=== PATIENT | female | born 1940 | race Caucasian/White ===

== ENCOUNTER → 2016-10-31 | Outpatient (REF) | payer MEDICARE, OTHER ==
[~2016-10-31] MED LIST: KEFL500C7 PO
== END ==
LOC: M SFHCADAM 19:46
PROVIDERS: ATTEND Family Medicine
DX: I10 Essential (primary) hypertension (principal)

== ENCOUNTER → 2017-03-24 | Outpatient (REF) | payer MEDICARE, OTHER ==
[~2017-03-24] MED LIST changes: +KEFL500C17 PO; -KEFL500C7 PO
[2017-03-24 22:48] LABS: ALBUMIN/GLOBULIN RATIO 1.18 (1.00-1.93); BILIRUBIN,TOTAL 0.7 MG/DL (0.2-1.0); CALCIUM LEVEL 8.7 MG/DL (8.8-10.2); CREATININE FOR GFR 1.02 MG/DL (0.55-1.02); FREE T4 1.37 NG/DL (0.76-1.46); GLOMERULAR FILTRATION RATE 56.1 (>39); TOTAL PROTEIN 7.4 GM/DL (6.4-8.2)
[2017-03-24 23:00] LABS: BASO % 0.9 % (0.0-1.0); EOS % 1.2 % (0.0-3.0); LARGE UNSTAINED CELL # 0.1 K/mm3 (0.0-0.4); LARGE UNSTAINED CELL % 1.8 % (0.0-4.0); LYMPH # 1.3 K/mm3 (1.5-4.5); LYMPH % 43.6 % (24.0-44.0); MEAN CORPUSCULAR HEMOGLOBIN 30.1 pg (27.0-33.0); MEAN CORPUSCULAR HGB CONC 32.1 g/dl (32.0-36.5); MEAN CORPUSCULAR VOLUME 93.7 fl (80.0-96.0); MONO # 0.2 K/mm3 (0.0-0.8); MONO % 6.1 % (0.0-5.0); NEUTROPHILS # 1.3 K/mm3 (1.8-7.7); NEUTROPHILS % 46.4 % (36.0-66.0); PLATELET COUNT, AUTOMATED 220 k/mm3 (150-450); WHITE BLOOD COUNT 2.9 K/mm3 (4.0-10.0)
== END ==
LOC: M SFHCADAM 21:51
PROVIDERS: ATTEND Family Medicine
DX: R53.82 Chronic fatigue, unspecified (principal)

== ENCOUNTER → 2017-03-31 | Outpatient (REF) | payer MEDICARE, OTHER | LOC: M LAB REF 18:36 | PROVIDERS: ATTEND Family Medicine | DX: R30.0 Dysuria (principal) | CPT/HCPCS: 81001; 81002; 87088; 87186; G0463 ==

== ENCOUNTER → 2017-05-15 | Outpatient (REF) | payer MEDICARE, OTHER | LOC: M SFHCLERA 09:11 | PROVIDERS: ATTEND Dermatology | DX: C44.319 Basal cell carcinoma of skin of other parts of face (principal); D23.39 Other benign neoplasm of skin of other parts of face | CPT/HCPCS: 11100; 11101; 88305; G0463 ==

== ENCOUNTER → 2017-07-10 | Outpatient (REF) | payer MEDICARE, OTHER | LOC: M SFHCLERA 09:42 | PROVIDERS: ATTEND Dermatology | DX: C44.319 Basal cell carcinoma of skin of other parts of face (principal) ==

== ENCOUNTER → 2017-09-02 | Outpatient (REF) | payer MEDICARE, OTHER | LOC: M SFHCADAM 08:49 | DX: N30.00 Acute cystitis without hematuria (principal); B96.29 Other Escherichia coli [E. coli] as the cause of diseases classified elsewhere; B96.20 Unspecified Escherichia coli [E. coli] as the cause of diseases classified elsewhere | CPT/HCPCS: 87088; 87186 ==

== ENCOUNTER → 2017-10-23 | Outpatient (REF) | payer MEDICARE, OTHER ==
[2017-10-23 21:10] LABS: BASO % 0.6 % (0.0-1.0); EOS # 0.1 10^3/uL (0.0-0.50); EOS % 2.2 % (0.0-3.0); HEMATOCRIT 39.5 % (36.0-47.0); HEMOGLOBIN 12.7 g/dl (12.0-16.0); IMMATURE GRANULOCYTE % 0.3 % (0-3.0); LYMPH # 1.5 10^3/uL (1.5-4.5); LYMPH % 45.7 % (24.0-44.0); MEAN CORPUSCULAR HEMOGLOBIN 29.2 pg (27.0-33.0); MEAN CORPUSCULAR HGB CONC 32.2 g/dl (32.0-36.5); MEAN CORPUSCULAR VOLUME 90.8 fl (80.0-96.0); MONO # 0.3 10^3/uL (0.0-0.8); MONO % 8.7 % (0.0-5.0); NEUTROPHILS # 1.4 10^3/uL (1.8-7.7); NEUTROPHILS % 42.5 % (36.0-66.0); PLATELET COUNT, AUTOMATED 207 10^3/uL (150-450); RED BLOOD COUNT 4.35 10^6/uL (4.00-5.40); RED CELL DISTRIBUTION WIDTH 12.9 % (11.5-14.5); WHITE BLOOD COUNT 3.2 10^3/uL (4.0-10.0)
[2017-10-23 21:18] LABS: ALBUMIN/GLOBULIN RATIO 1.21 (1.00-1.93); ALKALINE PHOSPHATASE 108 U/L (45-117); ALT/SGPT 21 U/L (12-78); ANION GAP 9 MEQ/L (8-16); AST/SGOT 19 U/L (7-37); BILIRUBIN,TOTAL 0.5 MG/DL (0.2-1.0); BLOOD UREA NITROGEN 32 MG/DL (7-18); CALCIUM LEVEL 9.4 MG/DL (8.8-10.2); CARBON DIOXIDE LEVEL 28 MEQ/L (21-32); CHLORIDE LEVEL 104 MEQ/L (98-107); CREATININE FOR GFR 0.95 MG/DL (0.55-1.30); GLOMERULAR FILTRATION RATE > 60.0 (>39); GLUCOSE, FASTING 86 MG/DL (70-100); SODIUM LEVEL 141 MEQ/L (136-145); TOTAL PROTEIN 7.3 GM/DL (6.4-8.2)
== END ==
LOC: M LAB REF 20:28 → M SFHCADAM 20:28
DX: R53.83 Other fatigue (principal)
CPT/HCPCS: 84443

== ENCOUNTER → 2018-10-08 | Outpatient (CLI) | payer MEDICARE, OTHER ==
[~2018-10-08] MED LIST changes: +ASPI1TAB PO; +BIOF4GEL2 TOP; +LOSA50TA88 PO; +OMEP40CA2 PO; +TRIA37.5 PO
--- NOTE | 2018-10-08 12:54 | REP ---
CT study of the chest without contrast: History: History of breast carcinoma. Status post bilateral mastectomy. No comparison chest CT. 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 There is some post radiation fibrosis along the anterolateral chest wall in the left upper lobe mild in degree. No pulmonary nodule or mass lesion is seen. No pleural effusion is noted. No chest wall mass is observed. No axillary, supraclavicular, or internal mammary adenopathy is appreciated. There is focal fairly heavy calcification along the course the left anterior descending coronary artery. No hilar or mediastinal mass or adenopathy is observed. No adrenal lesion is seen. There are clips in the gallbladder fossa. Bone window settings show no bony destructive lesion. There is an old anterior wedge compression deformity at the L1 vertebral body. This is unchanged when compared with prior radiographs of the lumbar spine dated March 31, 2015. Thoracic vertebral body heights are preserved. At the T4 level, there is a central radiolucency surrounded by benign-appearing sclerotic margins may be a cyst or hemangioma. No significant bony destructive lesion. 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 Status post bilateral mastectomy. Status post cholecystectomy. No acute disease. Electronically Signed by Caleb Wilkinson MD 10/08/2018 01:41 P
--- NOTE | 2018-10-08 12:55 | REP ---
Right scapula: Two views. History: Scapular pain times 1 month. Findings: AP and tangential views of the scapula demonstrate no bony destructive lesion or abnormal sclerosis. Glenohumeral and acromioclavicular joints are normally aligned. There is minimal AC joint hypertrophy. Periarticular soft tissues are unremarkable. Visualized rib cage is intact. Impression: No acute abnormality. Minimal AC joint hypertrophy consistent with osteoarthritis. Electronically Signed by Caleb Wilkinson MD 10/08/2018 01:41 P
== END ==
LOC: M RAD 10:29
PROVIDERS: ATTEND Nurse Practitioner Family
DX: M25.511 Pain in right shoulder (principal); Z85.3 Personal history of malignant neoplasm of breast; Z90.13 Acquired absence of bilateral breasts and nipples; J70.1 Chronic and other pulmonary manifestations due to radiation; Z90.49 Acquired absence of other specified parts of digestive tract; M19.011 Primary osteoarthritis, right shoulder

== ENCOUNTER → 2018-10-30 | Outpatient (CLI) | payer MEDICARE, OTHER ==
[2018-10-30 13:15] LABS: CHOLESTEROL RISK RATIO 3.4 (<5); FREE T4 1.43 NG/DL (0.76-1.46); THYROID STIMULATING HORMONE 1.28 uIU/ML (0.358-3.740); TOTAL 25(OH) VITAMIN D 35.5 NG/ML (30.0-100.0)
== END ==
LOC: M LAB 11:40
PROVIDERS: ATTEND Family Medicine
DX: R25.1 Tremor, unspecified (principal); I10 Essential (primary) hypertension; M81.0 Age-related osteoporosis without current pathological fracture

== ENCOUNTER 2019-02-02 20:39 | Emergency (ER) | payer MEDICARE, OTHER ==
[~2019-02-02] VITALS: Ht 152.4 cm; Wt 75.9 kg
[~2019-02-02 20:39] MED LIST changes: -ASPI1TAB PO; +ASPI81TA26 PO; -OMEP40CA2 PO; +OMEP40CA97 PO
--- NOTE | 2019-02-02 22:32 | ECGEPIP ---
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
--- NOTE | 2019-02-02 23:17 | REPVR ---
EXAM: CT Head Without Contrast EXAM DATE/TIME: 02/02/2019 10:11 PM CLINICAL HISTORY: 79 years old, female; Injury or trauma; Fall; Initial encounter; Blunt trauma (contusions or hematomas) TECHNIQUE: Imaging protocol: Axial computed tomography images of the head without contrast. Radiation optimization: All CT scans at this facility use at least one of these dose optimization techniques: automated exposure control; mA and/or kV adjustment per patient size (includes targeted exams where dose is matched to clinical indication); or iterative reconstruction. COMPARISON: No relevant prior studies available. FINDINGS: Brain: Within the left cerebral convexity, there is a hyperdense acute subdural hematoma measuring 4 mm in thickness. This involves the left frontal, parietal, and temporal convexities. As a whole, this measures 5.3 x 0.4 x 7.5 cm. A tiny hypodense lacunar infarct is visualized within the anterior limb of left internal capsule, too small to determine acuity. There are small periventricular foci of white matter hypodensity, likely representing small vessel ischemic disease in a patient this age. The acuity of the white matter disease is indeterminate. The white-win differentiation is otherwise preserved demonstrating no acute territorial type infarct. Midline shift: There is approximately 2 mm of midline shift to the right. Ventricles: There is mild prominence of the ventricles and sulci, compatible with atrophy. Bones/joints: The calvarium demonstrates no evidence for a depressed fracture. Sinuses: Visualized sinuses are unremarkable. No fluid levels. Mastoid air cells: No mastoid effusion. Soft tissues: Unremarkable. Vasculature: Intracranial atherosclerosis visualized. IMPRESSION: 1. Within the left cerebral convexity, there is an acute subdural hematoma measuring 4 mm in thickness. A follow-up head CT in 12-24 hours is recommended. 2. There is approximately 2 mm of midline shift to the right. 3. A tiny hypodense lacunar infarct is visualized within the anterior limb of left internal capsule, too small to determine acuity. Otherwise, there is no acute territorial type infarct. 4. There are small periventricular foci of white matter hypodensity, likely representing small vessel ischemic disease in a patient this age. 5. Mild atrophy. Electronically signed by: Manuel Noel On 02/02/2019 23:16:36 PM
--- NOTE | 2019-02-02 23:30 | REPVR ---
EXAM: CT Cervical Spine Without Contrast EXAM DATE/TIME: 02/02/2019 10:11 PM CLINICAL HISTORY: 79 years old, female; Injury or trauma; Fall; Initial encounter; Blunt trauma TECHNIQUE: Imaging protocol: Axial computed tomography images of the cervical spine without contrast. Coronal and sagittal reformatted images were created and reviewed. Radiation optimization: All CT scans at this facility use at least one of these dose optimization techniques: automated exposure control; mA and/or kV adjustment per patient size (includes targeted exams where dose is matched to clinical indication); or iterative reconstruction. COMPARISON: No relevant prior studies available. FINDINGS: Vertebrae: No acute cervical spine fracture. Mild anterolisthesis of C4 on C5. The facet alignment is preserved bilaterally. The occipital condyles and C1-C2 articulations appear intact. Hypertrophic bilateral TMJ arthropathy. The cervical lordosis is mildly reversed. Diffuse osteopenia. Hypertrophic degenerative changes are identified at the junction of the anterior C1 arch and dens process. There is elongation of the styloid processes with ossification of the stylohyoid ligament, suggestive of [place] syndrome. Discs/Spinal canal/Neural foramina: Spondylosis is visualized at multiple cervical levels. A decrease in disc height is visualized from C5-6 to C7-T1. Minimal narrowing of the ventral thecal sac at C5-6 and C6-7. Varying degrees of neural foraminal narrowing is identified at multiple cervical levels. Soft tissues: The prevertebral soft tissues are unremarkable. Lungs: No pneumothorax, as visualized. IMPRESSION: 1. No acute cervical spine fracture. 2. Mild anterolisthesis of C4 on C5. 3. The cervical lordosis is mildly reversed. 4. Spondylosis is visualized at multiple cervical levels. 5. Minimal narrowing of the ventral thecal sac at C5-6 and C6-7. 6. Additional findings described above. Electronically signed by: Manuel Noel On 02/02/2019 23:30:41 PM
[2019-02-03] MEDS ORDERED: LABETALOL HCL 100 MG/20 ML VIAL IV STA (00:13)
[2019-02-03 00:24] VITALS: BP 182/84
[2019-02-03 00:42] VITALS: BP 166/86
--- NOTE | 2019-02-03 07:56 | REP ---
Clinical: Trauma. Fall. Technique: AP, lateral, bilateral oblique views of the right wrist. Findings: Subtle nondisplaced Colles' fracture of the distal radial metaphysis with overlying soft tissue swelling. Underlying age-related osteopenia and degenerative changes. Impression: Subtle nondisplaced: Fracture of the distal radius. Electronically Signed by Rubio Xavier MD 02/03/2019 07:48 A
== END 2019-02-03 00:49 | disposition short-term general hospital (02) ==
LOC: M ED 20:39
DX: S52.501A Unspecified fracture of the lower end of right radius, initial encounter for closed fracture (principal); W18.39XA Other fall on same level, initial encounter; Y92.830 Public park as the place of occurrence of the external cause; I62.00 Nontraumatic subdural hemorrhage, unspecified; I10 Essential (primary) hypertension; F03.90 Unspecified dementia, unspecified severity, without behavioral disturbance, psychotic disturbance, mood disturbance, and anxiety; Z79.899 Other long term (current) drug therapy; Z88.1 Allergy status to other antibiotic agents; Z88.2 Allergy status to sulfonamides; Z88.8 Allergy status to other drugs, medicaments and biological substances; Z91.018 Allergy to other foods; Z91.040 Latex allergy status

== ENCOUNTER → 2019-02-24 | Outpatient (REF) | payer MEDICARE, OTHER ==
[~2019-02-24] MED LIST changes: +OMEP40CA2 PO; -OMEP40CA97 PO
[2019-02-24 19:49] LABS: BASO % 1.2 % (0.0-1.0); EOS % 0.8 % (0.0-3.0); HEMATOCRIT 40.8 % (36.0-47.0); HEMOGLOBIN 13.3 g/dl (12.0-15.5); LYMPH # 0.9 10^3/uL (1.5-4.5); LYMPH % 38.3 % (24.0-44.0); MEAN CORPUSCULAR HEMOGLOBIN 28.5 pg (27.0-33.0); MEAN CORPUSCULAR HGB CONC 32.6 g/dl (32.0-36.5); MEAN CORPUSCULAR VOLUME 87.4 fl (80.0-96.0); MONO # 0.2 10^3/uL (0.0-0.8); MONO % 9.5 % (0.0-5.0); NEUTROPHILS # 1.2 10^3/uL (1.8-7.7); PLATELET COUNT, AUTOMATED 221 10^3/uL (150-450); RED BLOOD COUNT 4.67 10^6/uL (4.00-5.40); WHITE BLOOD COUNT 2.4 10^3/uL (4.0-10.0)
[2019-02-24 19:52] LABS: ALBUMIN 3.8 GM/DL (3.2-5.2); BILIRUBIN,TOTAL 0.6 MG/DL (0.2-1.0); CALCIUM LEVEL 9.7 MG/DL (8.8-10.2); CREATININE FOR GFR 1.16 MG/DL (0.55-1.30); GLOMERULAR FILTRATION RATE 48.1 (>39); POTASSIUM SERUM 3.8 MEQ/L (3.5-5.1); THYROID STIMULATING HORMONE 2.1 uIU/ML (0.358-3.740); TOTAL PROTEIN 7.5 GM/DL (6.4-8.2)
[2019-02-24 19:53] LABS: FOLATE 10.4 NG/ML; TOTAL 25(OH) VITAMIN D 25.1 NG/ML (30.0-100.0)
== END ==
LOC: M SFHCADAM 13:51
PROVIDERS: ATTEND Family Medicine
DX: R53.83 Other fatigue (principal); S06.5X9A Traumatic subdural hemorrhage with loss of consciousness of unspecified duration, initial encounter; S52.501D Unspecified fracture of the lower end of right radius, subsequent encounter for closed fracture with routine healing; Z79.899 Other long term (current) drug therapy; Y93.9 Activity, unspecified

== ENCOUNTER → 2019-03-02 | Outpatient (CLI) | payer MEDICARE, OTHER ==
[~2019-03-02] MED LIST changes: +ISOVUE-370 76% 100ML VIAL (Q9967) As Ordered ONE
--- NOTE | 2019-03-02 11:30 | REP ---
CT BRAIN WITHOUT AND WITH IV CONTRAST: HISTORY: Followup subdural hematoma. The patient gives a prior history of breast carcinoma. Comparison study February 02, 2019. CT CONTRAST DOSE: 75 mL of intravenous Isovue 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 Bone window settings show no bony destructive or sclerotic lesion to suggest a calvarial bony metastasis. There is fairly heavy vascular calcification again noted in the distal carotid arteries. Visualized paranasal sinuses are clear. No intraorbital abnormality is seen. Soft tissue window settings on the noncontrast exam demonstrate mild generalized atrophy. A tiny focal hypodensity in the anterior limb of the internal capsule on the left is again seen which may be an old lacunar infarct. The previously noted acute subdural hematoma visible on February 02, 2019 study has resolved. No extra-axial fluid collection is visible today. No infarct, mass, parenchymal hemorrhage, or midline shift is seen. On postcontrast images, there is enhancement of normal intracranial vasculature. No abnormal intracranial contrast enhancement is seen. IMPRESSION: Recently noted left subdural hematoma has resolved. There is mild generalized atrophy. Vascular calcification is noted. Tiny old lacunar infarct left internal capsule again seen. Electronically Signed by Caleb Wilkinson MD 03/02/2019 02:23 P
== END ==
LOC: M RAD 09:55
PROVIDERS: ATTEND Family Medicine
DX: S06.5X9A Traumatic subdural hemorrhage with loss of consciousness of unspecified duration, initial encounter (principal)
CPT/HCPCS: 70470; Q9967

== ENCOUNTER → 2019-04-14 | Outpatient (REF) | payer MEDICARE, OTHER ==
[~2019-04-14] MED LIST changes: -ISOVUE-370 76% 100ML VIAL (Q9967) As Ordered ONE
== END ==
LOC: M LAB REF 18:35
PROVIDERS: ATTEND Dermatology
DX: L57.0 Actinic keratosis (principal); D23.39 Other benign neoplasm of skin of other parts of face

== ENCOUNTER → 2019-12-06 | Outpatient (REF) | payer MEDICARE, OTHER ==
[~2019-12-06] MED LIST changes: -OMEP40CA2 PO; +OMEP40CA97 PO
[2019-12-06 12:57] LABS: BASO % 1.2 % (0.0-1.0); EOS # 0.2 10^3/uL (0.0-0.5); EOS % 8.5 % (0.0-3.0); HEMATOCRIT 33.2 % (36.0-47.0); HEMOGLOBIN 10.3 g/dl (12.0-15.5); LYMPH # 0.8 10^3/uL (1.5-5.0); LYMPH % 30.8 % (24.0-44.0); MEAN CORPUSCULAR HEMOGLOBIN 28.9 pg (27.0-33.0); MEAN CORPUSCULAR VOLUME 93.3 fl (80.0-96.0); MONO # 0.3 10^3/uL (0.0-0.8); MONO % 10.8 % (0.0-5.0); NEUTROPHILS # 1.2 10^3/uL (1.5-8.5); NEUTROPHILS % 47.5 % (36.0-66.0); RED BLOOD COUNT 3.56 10^6/uL (4.00-5.40); WHITE BLOOD COUNT 2.6 10^3/uL (4.0-10.0)
[2019-12-06 13:10] LABS: ALBUMIN 2.5 GM/DL (3.2-5.2); ALT/SGPT 15 U/L (12-78); BILIRUBIN,TOTAL 0.3 MG/DL (0.2-1.0); BLOOD UREA NITROGEN 23 MG/DL (7-18); CALCIUM LEVEL 8.6 MG/DL (8.8-10.2); CARBON DIOXIDE LEVEL 29 MEQ/L (21-32); CHLORIDE LEVEL 105 MEQ/L (98-107); CHOLESTEROL LEVEL 161 MG/DL (<200); CHOLESTEROL RISK RATIO 3.833 (<5); CREATININE FOR GFR 0.82 MG/DL (0.55-1.30); FREE T4 1.14 NG/DL (0.76-1.46); GLOMERULAR FILTRATION RATE > 60.0 (>39); GLUCOSE, FASTING 81 MG/DL (70-100); HDL CHOLESTEROL 42 MG/DL (>40); LDL CHOLESTEROL 100 MG/DL (<100); NON-HDL-C 119 MG/DL; SODIUM LEVEL 140 MEQ/L (136-145); TOTAL PROTEIN 5.6 GM/DL (6.4-8.2); TRIGLYCERIDES LEVEL 94 MG/DL (<150)
[2019-12-06 13:17] LABS: PLATELET COUNT, AUTOMATED 83 10^3/uL (150-450)
== END ==
LOC: M SFHCADAM 09:45
PROVIDERS: ATTEND Family Medicine
DX: K21.9 Gastro-esophageal reflux disease without esophagitis (principal); I10 Essential (primary) hypertension; D72.819 Decreased white blood cell count, unspecified; Z87.898 Personal history of other specified conditions; R19.7 Diarrhea, unspecified; R29.6 Repeated falls

== ENCOUNTER → 2019-12-14 | Outpatient (REF) | payer MEDICARE, OTHER ==
[~2019-12-14] MED LIST changes: +APAP325T4 PO; +CORE12.5 PO; +MELA3TAB24 PO; +META28.32 PO; +SENN-80 PO; +TRAM50TA2 PO; +VALP1CAP2 PO; +tylenol 2 tabs
[2019-12-14 18:11] LABS: EOS # 0.2 10^3/uL (0.0-0.5); EOS % 7.1 % (0.0-3.0); HEMATOCRIT 35.8 % (36.0-47.0); LYMPH # 1.3 10^3/uL (1.5-5.0); LYMPH % 43.2 % (24.0-44.0); MEAN CORPUSCULAR HEMOGLOBIN 28.7 pg (27.0-33.0); MEAN CORPUSCULAR HGB CONC 30.7 g/dl (32.0-36.5); MEAN CORPUSCULAR VOLUME 93.5 fl (80.0-96.0); MONO # 0.4 10^3/uL (0.0-0.8); MONO % 14.3 % (0.0-5.0); NEUTROPHILS % 33.4 % (36.0-66.0); PLATELET COUNT, AUTOMATED 189 10^3/uL (150-450); RED BLOOD COUNT 3.83 10^6/uL (4.00-5.40); WHITE BLOOD COUNT 3.1 10^3/uL (4.0-10.0)
[2019-12-14 18:16] LABS: APPEARANCE, URINE CLOUDY (CLEAR); BACTERIA, URINE AUTO 1+ (NEGATIVE); BILIRUBIN, URINE AUTO NEGATIVE (NEGATIVE); BLOOD, URINE BLOOD 1+ (NEGATIVE); COLOR, URINE YELLOW (YELLOW); GLUCOSE, URINE (UA) AUTO NEGATIVE (NEGATIVE); KETONE, URINE AUTO NEGATIVE (NEGATIVE); LEUKOCYTE ESTERASE, URINE AUTO 3+ (NEGATIVE); NITRITE, URINE AUTO NEGATIVE (NEGATIVE); PROTEIN, URINE AUTO NEGATIVE (NEGATIVE); RBC, URINE AUTO 29 /HPF (0-3); RENAL EPITHELIAL CELLS 1 /HPF; SPECIFIC GRAVITY URINE AUTO 1.012 (1.002-1.035); SQUAMOUS EPITHELIAL CELL UR AU 0 /HPF (0-6); UROBILINOGEN, URINE AUTO 0.2 mg/dL (0.0-2.0); WBC, URINE AUTO TNTC /HPF (0-3)
[2019-12-14 18:31] LABS: BLOOD UREA NITROGEN 26 MG/DL (7-18); CALCIUM LEVEL 8.8 MG/DL (8.8-10.2); CARBON DIOXIDE LEVEL 30 MEQ/L (21-32); CHLORIDE LEVEL 104 MEQ/L (98-107); CREATININE FOR GFR 0.88 MG/DL (0.55-1.30); GLOMERULAR FILTRATION RATE > 60.0 (>39); GLUCOSE, FASTING 93 MG/DL (70-100); POTASSIUM SERUM 3.9 MEQ/L (3.5-5.1); SODIUM LEVEL 140 MEQ/L (136-145)
== END ==
LOC: M SFHCADAM 15:05
PROVIDERS: ATTEND Physician Assistant
DX: N30.00 Acute cystitis without hematuria (principal); D61.818 Other pancytopenia

== ENCOUNTER → 2019-12-20 | Outpatient (REF) | payer MEDICARE, OTHER ==
[2019-12-20 17:16] LABS: VALPROIC ACID (DEPAKOTE) 95.1 UG/ML (50.0-100.0)
== END ==
LOC: M SFHCADAM 11:07
PROVIDERS: ATTEND Family Medicine
DX: R41.89 Other symptoms and signs involving cognitive functions and awareness (principal); Z87.898 Personal history of other specified conditions
CPT/HCPCS: 80164; 82140; 86780; G0463

== ENCOUNTER 2019-12-21 09:32 | Emergency (ER) | payer MEDICARE, OTHER ==
[~2019-12-21] VITALS: Ht 154.9 cm; Wt 62.3 kg
[~2019-12-21 09:32] MED LIST changes: -APAP325T4 PO; -CORE12.5 PO; -MELA3TAB24 PO; -META28.32 PO; -SENN-80 PO; -TRAM50TA2 PO; -VALP1CAP2 PO; -tylenol 2 tabs
[2019-12-21] MEDS ORDERED: tylenol 2 tabs (09:42)
[2019-12-21] MEDS ORDERED: SENN-80 PO (10:02)
[2019-12-21] MEDS ORDERED: MELA3TAB24 PO (10:02)
[2019-12-21] MEDS ORDERED: VALP1CAP2 PO (10:02)
[2019-12-21] MEDS ORDERED: CORE12.5 PO (10:02)
[2019-12-21] MEDS ORDERED: META28.32 PO (10:02)
[2019-12-21] MEDS ORDERED: PERCOCET 5MG/325MG TAB PO ONE (10:15)
[2019-12-21] MEDS ORDERED: CARVedilol 12.5 MG TAB PO ONE (10:15)
[2019-12-21] MEDS ORDERED: LOSARTAN 50MG TABLET PO ONE (10:15)
[2019-12-21 10:25] VITALS: BP 180/110
--- NOTE | 2019-12-21 11:32 | REP ---
CT BRAIN WITHOUT CONTRAST: CT brain performed without IV contrast. Coronal reconstruction images are performed. There is moderate atrophy again noted. There are mild periventricular small vessel ischemic changes again noted. There is no midline shift or mass effect. There is no acute intracranial hemorrhage. No subdural hematoma is seen. No skull fracture is seen. There are vascular calcifications in the carotid siphons. IMPRESSION: Stable chronic findings with no acute intracranial hemorrhage or skull fracture. Electronically Signed by Saúl Stark MD 12/21/2019 12:19 P
[2019-12-21 11:41] VITALS: BP 158/82
--- NOTE | 2019-12-21 12:10 | REP ---
CT LUMBAR SPINE WITHOUT CONTRAST: HISTORY: Injury in a fall onto back from standing position. Lower lumbar tenderness. Comparison lumbar spine radiographs are from March 31, 2015. TECHNIQUE: Helical scanning is acquired and 4 mm axial images are reformatted. CT FINDINGS: There is diffuse osteopenia. There are wedge compression fracture deformities at L4 and L1. These are chronic however, unchanged from prior radiographs March 31, 2015. There is some retropulsion associated with a wedge compression deformity at L4 however this appears to be unchanged. No acute lumbar vertebral fracture is appreciated. There are fairly large bilateral perineural cysts in the body of the sacrum. No sacral fracture is appreciated. No paravertebral or intraspinal hematoma is appreciated. There are parapelvic cysts in the left kidney and there is a intrarenal calculus in the left kidney which measures 8 mm in size. No hydronephrosis is appreciated. At the L4-5 level, there is mild diffuse disc bulging combined with ligamentum flavum and facet hypertrophy, there is mild central canal stenosis L4-5. There is mild central canal stenosis at L3-4 as well contributed to by the retropulsion of the superior aspect of the L4 vertebral body described above. This is a chronic appearance. No other disc protrusion is seen. There is osteoarthritic facet disease. IMPRESSION: Degenerative spondylosis changes. Diffuse osteoporosis. Chronic wedge compression deformities L1 and L4 with approximately 50% loss of anterior vertebral body height at both these levels unchanged from comparison radiographs 2014. Mild central canal stenosis at L4-5 and L3-4. 8 mm intrarenal calculus left kidney without hydronephrosis. Benign perineural cysts in the upper sacrum. Electronically Signed by Caleb Wilkinson MD 12/21/2019 12:33 P
== END 2019-12-21 12:06 | disposition home or self-care (01) ==
LOC: M ED 09:32
DX: M54.5 Low back pain (principal); M51.36 Other intervertebral disc degeneration, lumbar region; M81.0 Age-related osteoporosis without current pathological fracture; W01.198A Fall on same level from slipping, tripping and stumbling with subsequent striking against other object, initial encounter; Y92.098 Other place in other non-institutional residence as the place of occurrence of the external cause; F03.90 Unspecified dementia, unspecified severity, without behavioral disturbance, psychotic disturbance, mood disturbance, and anxiety; I10 Essential (primary) hypertension; Z85.3 Personal history of malignant neoplasm of breast; Z90.13 Acquired absence of bilateral breasts and nipples; Z86.718 Personal history of other venous thrombosis and embolism; Z88.2 Allergy status to sulfonamides; Z88.0 Allergy status to penicillin; Z88.6 Allergy status to analgesic agent; Z88.1 Allergy status to other antibiotic agents; Z88.5 Allergy status to narcotic agent; Z91.040 Latex allergy status; Z91.018 Allergy to other foods; Z79.899 Other long term (current) drug therapy

== ENCOUNTER → 2019-12-28 | Outpatient (REF) | payer MEDICARE, OTHER ==
[~2019-12-28] MED LIST changes: +CORE12.5 PO; +MELA3TAB24 PO; +META28.32 PO; +SENN-80 PO; +VALP1CAP2 PO; +tylenol 2 tabs
[2019-12-28 13:39] LABS: BLOOD UREA NITROGEN 28 MG/DL (7-18); CREATININE FOR GFR 0.82 MG/DL (0.55-1.30); GLOMERULAR FILTRATION RATE > 60.0 (>39)
== END ==
LOC: M LABDRWAD 12:25
PROVIDERS: ATTEND Physician Assistant
DX: M54.5 Low back pain (principal)

== ENCOUNTER 2019-12-31 17:35 | Emergency (ER) | payer MEDICARE, OTHER ==
[~2019-12-31] VITALS: Ht 157.5 cm; Wt 62.3 kg
[2019-12-31] MEDS ORDERED: TRAM50TA2 PO (18:51)
[2019-12-31] MEDS ORDERED: APAP325T4 PO (18:51)
[2019-12-31 18:55] LABS: EOS # 0.1 10^3/uL (0.0-0.5); EOS % 2.6 % (0.0-3.0); HEMATOCRIT 34.5 % (36.0-47.0); HEMOGLOBIN 10.9 g/dl (12.0-15.5); LYMPH # 1.1 10^3/uL (1.5-5.0); MEAN CORPUSCULAR HEMOGLOBIN 29.7 pg (27.0-33.0); MEAN CORPUSCULAR HGB CONC 31.6 g/dl (32.0-36.5); MONO # 0.4 10^3/uL (0.0-0.8); MONO % 12.1 % (0.0-5.0); NEUTROPHILS # 1.4 10^3/uL (1.5-8.5); NEUTROPHILS % 46.6 % (36.0-66.0); PLATELET COUNT, AUTOMATED 112 10^3/uL (150-450); RED BLOOD COUNT 3.67 10^6/uL (4.00-5.40); WHITE BLOOD COUNT 3.1 10^3/uL (4.0-10.0)
[2019-12-31 19:31] LABS: ERYTHROCYTE SEDIMENTATION RATE 12 mm/hr (0-30)
--- NOTE | 2019-12-31 20:01 | REPVR ---
PROCEDURE INFORMATION: Exam: US Duplex Lower Extremity Veins, Bilateral Exam date and time: 12/31/2019 7:41 PM Age: 79 years old Clinical indication: Pain; Leg, lower; Bilateral; Additional info: Lower leg swelling, pain L TECHNIQUE: Imaging protocol: Real-time duplex ultrasound of the extremities with 2-D win scale, color Doppler flow and spectral waveform analysis with image documentation. Complete exam focused on the bilateral lower extremity veins. COMPARISON: No relevant prior studies available. FINDINGS: Right deep veins: The common femoral, femoral, and popliteal veins are patent without thrombus. Normal Doppler waveforms. Normal compressibility and/or augmentation response. Right superficial veins: Unremarkable. Left deep veins: The common femoral, femoral, and popliteal veins are patent without thrombus. Normal Doppler waveforms. Normal compressibility and/or augmentation response. Left superficial veins: Unremarkable. Soft tissues: Unremarkable. IMPRESSION: No evidence of deep vein thrombosis. Electronically signed by: Javed Winslow On 12/31/2019 20:01:21 PM
[2019-12-31] MEDS ORDERED: KEFL500C17 PO (20:42)
[2019-12-31] MEDS: CEPHALEXIN 500 MG CAP PO ONE (20:58)
[2019-12-31 20:59] VITALS: BP 121/65
== END 2019-12-31 21:00 | disposition home or self-care (01) ==
LOC: M ED 18:15
DX: M79.89 Other specified soft tissue disorders (principal); N39.0 Urinary tract infection, site not specified; I10 Essential (primary) hypertension; Z86.718 Personal history of other venous thrombosis and embolism; Z88.1 Allergy status to other antibiotic agents; Z88.2 Allergy status to sulfonamides; Z88.5 Allergy status to narcotic agent; Z88.6 Allergy status to analgesic agent; Z88.8 Allergy status to other drugs, medicaments and biological substances; Z91.018 Allergy to other foods; Z91.040 Latex allergy status; Z79.899 Other long term (current) drug therapy

== ENCOUNTER → 2020-03-01 | Outpatient (REF) | payer MEDICARE, OTHER ==
[~2020-03-01] MED LIST changes: +APAP325T4 PO; +COLA1TAB PO; +D31000TA2 PO; +DEPA1CAP PO; +MULTCAP PO; +TRAM50TA2 PO; +VITA400T15 PO; +med rec comment
[2020-03-27 08:21] LABS: APPEARANCE, URINE HAZY (CLEAR); BACTERIA, URINE AUTO 1+ (NEGATIVE); BILIRUBIN, URINE AUTO NEGATIVE (NEGATIVE); BLOOD, URINE BLOOD 1+ (NEGATIVE); COLOR, URINE YELLOW (YELLOW); GLUCOSE, URINE (UA) AUTO NEGATIVE (NEGATIVE); KETONE, URINE AUTO NEGATIVE (NEGATIVE); LEUKOCYTE ESTERASE, URINE AUTO 3+ (NEGATIVE); MUCUS, URINE SMALL (NEGATIVE); NITRITE, URINE AUTO NEGATIVE (NEGATIVE); PROTEIN, URINE AUTO 1+ mg/dL (NEGATIVE); RBC, URINE AUTO 5 /HPF (0-3); SPECIFIC GRAVITY URINE AUTO 1.016 (1.002-1.035); SQUAMOUS EPITHELIAL CELL UR AU 1 /HPF (0-6); WBC, URINE AUTO TNTC /HPF (0-3)
== END ==
LOC: M SFHCADAM 11:24
PROVIDERS: ATTEND Physician Assistant
DX: N39.0 Urinary tract infection, site not specified (principal)
CPT/HCPCS: 81001; 87086; G0463

== ENCOUNTER 2020-04-16 22:54 | Inpatient (IN) | payer MEDICARE, OTHER ==
[~2020-04-16] VITALS: Ht 160 cm; Wt 55.9 kg
[~2020-04-16 22:54] MED LIST changes: -COLA1TAB PO; -D31000TA2 PO; -DEPA1CAP PO; -MULTCAP PO; -VITA400T15 PO; -med rec comment
[2020-04-16 23:41] LABS: BASO % 0.5 % (0.0-1.0); HEMATOCRIT 38.4 % (36.0-47.0); HEMOGLOBIN 12.4 g/dl (12.0-15.5); LYMPH # 0.7 10^3/uL (1.5-5.0); LYMPH % 16.6 % (24.0-44.0); MEAN CORPUSCULAR HEMOGLOBIN 30.7 pg (27.0-33.0); MEAN CORPUSCULAR HGB CONC 32.3 g/dl (32.0-36.5); MONO # 0.3 10^3/uL (0.0-0.8); MONO % 7.6 % (0.0-5.0); NEUTROPHILS % 74.3 % (36.0-66.0); RED BLOOD COUNT 4.04 10^6/uL (4.00-5.40)
[2020-04-16 23:46] LABS: PLATELET COUNT, AUTOMATED 83 10^3/uL (150-450)
--- NOTE | 2020-04-16 23:59 | REPVR ---
PROCEDURE INFORMATION: Exam: CT Head Without Contrast Exam date and time: 04/16/2020 11:37 PM Age: 80 years old Clinical indication: Pain; Headache; Additional info: Syncope TECHNIQUE: Imaging protocol: Computed tomography of the head without contrast. Radiation optimization: All CT scans at this facility use at least one of these dose optimization techniques: automated exposure control; mA and/or kV adjustment per patient size (includes targeted exams where dose is matched to clinical indication); or iterative reconstruction. COMPARISON: CT Head without contrast 12/21/2019 10:52 AM FINDINGS: Brain: There is no acute intracranial abnormality. Moderate small vessel ischemic changes are seen. There is no mass, midline shift, or mass effect. Stark-white matter differentiation is preserved. There is no evidence of hemorrhage. There is no extra-axial fluid collection. Basal cisterns are patent. Ventricles: Moderate prominence of ventricles and sulcci representing volume loss. Bones/joints: The visualized osseous structures are unremarkable. Paranasal sinuses: Visualized sinuses are clear. Mastoid air cells: Mastoid air cells are clear. Soft tissues: Unremarkable. IMPRESSION: 1. Moderate age related changes. 2. No acute intracranial abnormality. Electronically signed by: Norma Najera On 04/16/2020 23:59:22 PM
--- NOTE | 2020-04-17 00:01 | REPVR ---
PROCEDURE INFORMATION: Exam: CT Cervical Spine Without Contrast Exam date and time: 04/16/2020 11:37 PM Age: 80 years old Clinical indication: Neck pain; Additional info: Syncope TECHNIQUE: Imaging protocol: Computed tomography images of the cervical spine without contrast. Radiation optimization: All CT scans at this facility use at least one of these dose optimization techniques: automated exposure control; mA and/or kV adjustment per patient size (includes targeted exams where dose is matched to clinical indication); or iterative reconstruction. COMPARISON: No relevant prior studies available. FINDINGS: Vertebrae: No acute fracture. Normal alignment. Diffuse demineralization of the bones. Straightening of normal cervical lordosis likely secondary to muscular spasm or positioning. Lucencies in the T3 and T4 vertebral bodies appears to be well corticated likely old, clinical correlation and comparison with prior studies is recommended. Discs/Spinal canal/Neural foramina: Mild posterior disc osteophyte formation at multiple levels causing mild indentation on thecal sac. Soft tissues: Unremarkable. Lungs: Biapical scarring, left greater than right. IMPRESSION: No acute findings. Electronically signed by: Norma Najera On 04/17/2020 00:01:26 AM
[2020-04-17 02:04] LABS: ALBUMIN 2.5 GM/DL (3.2-5.2); ALT/SGPT 15 U/L (12-78); BILIRUBIN,DIRECT 0.2 MG/DL (0.0-0.2); BILIRUBIN,TOTAL 0.6 MG/DL (0.2-1.0); BLOOD UREA NITROGEN 33 MG/DL (7-18); CARBON DIOXIDE LEVEL 28 MEQ/L (21-32); CHLORIDE LEVEL 103 MEQ/L (98-107); CK-MB VALUE MASS < 1.0 NG/ML (<3.6); CPK CREATINE PHOSPHOKINASE 47 U/L (26-192); CREATININE FOR GFR 1.08 MG/DL (0.55-1.30); FREE T4 1.09 NG/DL (0.76-1.46); GLOMERULAR FILTRATION RATE 52.1 (>39); GLUCOSE, FASTING 108 MG/DL (70-100); MAGNESIUM LEVEL 1.5 MG/DL (1.8-2.4); MB/CK RELATIVE INDEX 2.13 (< OR =4); POTASSIUM SERUM 4.2 MEQ/L (3.5-5.1); SODIUM LEVEL 134 MEQ/L (136-145); TOTAL PROTEIN 5.8 GM/DL (6.4-8.2); TROPONIN I < 0.02 NG/ML (< 0.10)
[2020-04-17] MEDS ORDERED: NS 1,000 ML IV ONE (02:30)
[2020-04-17] MEDS ORDERED: ceFAZolin SOD 1 GM in D5W MINI-BAG PLUS 50 ML IV ONE (02:45)
[2020-04-17] MEDS ORDERED: VITA400T15 PO (02:57)
[2020-04-17] MEDS ORDERED: D31000TA2 PO (02:57)
[2020-04-17] MEDS ORDERED: med rec comment (02:59)
[2020-04-17] MEDS ORDERED: NS 1,000 ML IV SCH (03:45)
[2020-04-17] MEDS: MAGNESIUM OXIDE 400 MG TAB (MAG-OX) PO ONE ×2 (03:45→04:45)
[2020-04-17] MEDS ORDERED: SENNA 8.6 MG TAB (SENOKOT) PO PRN (03:45)
[2020-04-17] MEDS ORDERED: hydrALAZINE 20MG/ML 1ML VIAL (J0360 PER 20MG) IV STA (04:19)
--- NOTE | 2020-04-17 04:35 | HPEPDOC ---
[facility] Medical History & Physical Date of Admission Apr 17, 2020 Date of Service: Apr 17, 2020 Attending Physician: Susie Gibson MD History and Physical CHIEF COMPLAINT: fall, increased weakness, ? LOC HISTORY OF PRESENT ILLNESS: Patient is a 80 y/o F with PMH of breast cancer, HTN, hx of DVT, Hx of subdural hematoma, vit D deficiency, ? dementia, hx of falls who presented to ER with increased weakness, ? LOC found on floor by . Patient was not a good historian in the early hours this AM and patient's was not at bedside so most of information was taken from notes. Per EMS reports, the patient was found on floor, pt states did not fall, states slid to the floor by herself. There was no record of patient hitting head, this event was not witness. No documented bowel or bladder loss, seizure activity, tremoring, slurring speech, post-ictal phase, facial drooping, biting of tongue, drooling. It is unknown through records if the patient actually lost consciousness or not. Pt was unable to ambulate due to weakness per EMS. The patient does use walker occassionally at home. Patient denies fevers, chills, nausea, vomiting, diarrhea, recent illness, SOB, chest pain, lightheadedness or dizziness prior to fall. In the ER, patient was slightly confused, AAOx2 but could not recall the events of what brought her here completely. CT head neg, no focal deficits. There is no documented history of dementia but she was not a great historian. This could have been due to . Orthostatics +, UA +. VS showed some hypertension. CT cervical spine neg for injury. When attempted to stand up, she was very weak. Patient was admitted for further workup/treatment of increased weakness, fall with ? LOC, UTI. ROS: Neg except for what is mentioned above PAST MEDICAL HISTORY: 1. breast cancer s/p mastectomy 2. HTN 3. hx of DVT 4. Hx of subdural hematoma 5. Vit D deficiency 6. Dementia? PAST SURGICAL HISTORY: 1. Appendectomy 2. Hysterectomy 3. Bilateral mastectomy SOCIAL HISTORY: Patient denies smoking, alcohol or drug use history. Lives with in local area. FAMILY HISTORY: Noncontributory ALLERGIES: Please see below. HOME MEDICATIONS: Please see below. PHYSICAL EXAMINATION: VITAL SIGNS: 99.6F, 88, 173/79, 97% on RA GENERAL APPEARANCE: Appears tired, NAD, resting in bed, AAOx2 but not to reason why here HEENT: AT/NC, moist oral mucosa, PERRLA, EOMintact CARDIOVASCULAR: S1S2 +, no M/R/G LUNGS: CTAB, no W/R/R ABDOMEN: soft, nontender, nondistended, BS+ in 4 quad MUSCULOSKELETAL: ROM not tested, no atrophy 0 EXTREMITIES: nonpitting edema bilaterally, no cyanosis or clubbing NEUROLOGICAL: CN 2-12 intact, no focal deficits, gait not tested. No sensory or motor loss noted, reflexes + in all extrem. LABORATORY DATA: See below. IMAGING: CT head: no acute intracranial abnormalities CT cervical spine: No acute findings MICROBIOLOGY: Ucx pending BCx ordered ASSESSMENT: 80 y/o F with PMH of breast cancer, HTN, hx of DVT, Hx of subdural hematoma, vit D deficiency, ? dementia, hx of falls admitted for further workup/treatment of increased weakness, fall with ? LOC, UTI. PLAN: 1. Weakness and fall, ? LOC possibly 2/2 to orthostatic changes vs. UTI. -No known deconditioning at baseline, does not use support devices at home to ambulate -PT/OT, BP elevated, + orthostats in ER, + UA -F/u individual treatment plans below. 2. Syncope?, vasovagal vs. orthostatic changes as cause if occurred -unclear if true syncopal episode, patient poor historian -F/u echocardiogram, US carotid -Holding fluids due to elevated BP -Tele, orthostatics BID 3. Hypertension, uncontrolled -BP 160-200 mmHg systolic in ER -Giving 10 mg hydralazine -Stopped IVFs as patient does not appear to need additinal fluid at this time. -C/w all home medications in the AM 4. UTI -Afebrile, WBC wnl -F/u UCx -Ceftriaxone daily 5. Confusion, ? dementia -AAOx2, follows commands, not believed to be acute -Recommend following up with in AM. 6. Hx of breast cancer s/p mastectomy -F/u with PCP 7. Hx of DVT -Not on AC 8. Vitamin D deficiency -resume Vit d supplement 9. DVT px. -Hx of subdural hematoma and currently not on AC at home. If check with and no reason or CI to it, then please restart by day team. Will start on teds, SCDs for now. DISPOSITION: Admit to inpatient. PT/OT. Plan is discharge home when medically s table. Vital Signs Vital Signs Date Time Temp Pulse Resp B/P (MAP) Pulse Ox O2 Delivery O2 Flow Rate FiO2 04/17/20 03:50 203/102 (135) 04/17/20 02:26 88 95 04/16/20 23:20 99.6 20 97 Room Air Laboratory Data Labs 24H Laboratory Tests 2 04/16/20 23:10: Immature Granulocyte % (Auto) 1.0, Neutrophils (%) (Auto) 74.3H, Lymphocytes (%) (Auto) 16.6L, Monocytes (%) (Auto) 7.6H, Eosinophils (%) (Auto) 0.0, Basophils (%) (Auto) 0.5, Neutrophils # (Auto) 3.0, Lymphocytes # (Auto) 0.7L, Monocytes # (Auto) 0.3, Eosinophils # (Auto) 0.0, Basophils # (Auto) 0.0, Nucleated Red Blood Cells % (auto) 0.0, Immature Platelet Fraction 1.6 04/16/20 23:31: Bedside Glucose (Misc Panel) 114H 04/17/20 01:10: Anion Gap 3L, Glomerular Filtration Rate 52.1, Calcium Level 9.0, Magnesium Level 1.5L, Total Bilirubin 0.6, Direct Bilirubin 0.2, Aspartate Amino Transf (AST/SGOT) 21, Alanine Aminotransferase (ALT/SGPT) 15, Alkaline Phosphatase 69, Total Creatine Kinase 47, Creatine Kinase MB < 1.0, Creatine Kinase MB Relative Index 2.13, Troponin I < 0.02, Total Protein 5.8L, Albumin 2.5L, Albumin/Globulin Ratio 0.8L, Thyroid Stimulating Hormone (TSH) 1.810, Free Thyroxine 1.09 04/17/20 01:50: Urine Color YELLOW, Urine Appearance CLEAR, Urine pH 6.0, Urine Specific [place] 1.015, Urine Protein NEGATIVE, Urine Glucose (UA) NEGATIVE, Urine Ketones 1+H, Urine Blood 1+H, Urine Nitrite NEGATIVE, Urine Bilirubin NEGATIVE, Urine Urobilinogen 2.0H, Urine Leukocyte Esterase 1+H, Urine WBC (Auto) 31H, Urine RBC (Auto) 6H, Urine Hyaline Casts (Auto) 0, Urine Bacteria (Auto) NEGATIVE, Urine Squamous Epithelial Cells 0, Urine Mucus (Auto) SMALL, Urine Sperm (Auto) CBC/BMP Laboratory Tests 04/16/20 23:10 04/17/20 01:10 Microbiology Microbiology 04/17/20 Urine Culture, Received Pending Home Medications Scheduled Carvedilol (Coreg) 12.5 Mg Tablet, 12.5 MG PO BID Cholecalciferol (Vitamin D3) (Vitamin D3) 1,000 Unit Tablet, 1,000 UNITS PO DAILY Losartan Potassium (Losartan Potassium) 50 Mg Tab, 50 MG PO DAILY Melatonin (Melatonin) 3 Mg Tab.rapdis, 3 MG PO QPM for sleep Omeprazole (Omeprazole) 40 Mg Cap, 40 MG PO DAILY Psyllium Husk (with Sugar) (Metamucil Powder) 575 Gm Powder, 1 PKT PO DAILY Valproic Acid (Valproic Acid) 250 Mg Capsule, 500 MG PO BID Scheduled PRN Acetaminophen (Acetaminophen) 325 Mg Tablet, 650 MG PO Q4-6HP PRN for pain or fever Sennosides (Senna) 8.6 Mg Tablet, 17.2 MG PO QHS PRN for CONSTIPATION Miscellaneous Medications [med rec comment] used external to do med rec patient unsure of last dose Allergies Coded Allergies: Sulfa (Sulfonamide Antibiotics) (Verified Allergy, Mild, rash, 12/31/19) alendronate sodium (Verified Allergy, Mild, rash/headache, 12/31/19) cefadroxil (Verified Allergy, Mild, 12/31/19) NOTE: PATIENT HAS HAS MULTILE 1st GEN CEPHALOSPORINS AT [facility] AND IV chocolate flavor (Verified Allergy, Mild, headache and rash, 12/31/19) ciprofloxacin (Verified Allergy, Mild, rash, 12/31/19) hydrocodone (Verified Allergy, Mild, 12/31/19) terazosin (Verified Allergy, Mild, rash, 12/31/19) aspirin (Verified Allergy, Unknown, 12/21/19) latex (Verified Adverse Reaction, Intermediate, mouth sores, 12/31/19) lisinopril (Verified Adverse Reaction, Mild, aches, 12/21/19) amoxicillin (Verified Adverse Reaction, Unknown, nausea/vomiting, 12/21/19) clavulanic acid (Verified Adverse Reaction, Unknown, nausea/vomiting, 12/21/19) A-FIB/CHADSVASC A-FIB History Current/History of A-Fib/PAF?: No Current PO Anticoag Therapy: No Age/Risk Factor Scoring CHADSVASC: CHADSVASC Response (Comments) Value Age Risk Factor Age >/= 75 years old 2 Gender Risk Factor Female 1 Hx of CHF No 0 Hx of HTN Yes 1 Hx of Stroke/TIA/or VTE No 0 Hx of Diabetes No 0 Hx of Vascular Disease No 0 Total 4 Treatment Treatment ordered: Other Other anticoagulant ordered: enoxaparin Susie Gibson MD Apr 17, 2020 04:35
--- NOTE | 2020-04-17 04:49 | REPVR ---
PROCEDURE INFORMATION: Exam: US Duplex Bilateral Extracranial Arteries Exam date and time: 04/17/2020 4:33 AM Age: 80 years old Clinical indication: Syncope and collapse; Additional info: Fall, syncope? TECHNIQUE: Imaging protocol: Real-time Duplex ultrasound scan of the bilateral carotid and vertebral arteries combining win scale, color Doppler and spectral waveform analysis. Bilateral exam. COMPARISON: CT Head without contrast 04/16/2020 11:31 PM FINDINGS: Right common carotid artery: Unremarkable. No occlusion or stenosis. Waveforms are normal. Right internal carotid artery: Unremarkable. No occlusion or stenosis. Waveforms are normal. Right ICA/CCA ratio: Within normal limits. Right external carotid artery: No stenosis in the origin. Right vertebral artery: Unremarkable. Antegrade flow. Left common carotid artery: Unremarkable. No occlusion or stenosis. Waveforms are normal. Left internal carotid artery: Unremarkable. No occlusion or stenosis. Waveforms are normal. Left ICA/CCA ratio: Within normal limits. Left external carotid artery: No stenosis in the origin. Left vertebral artery: Unremarkable. Antegrade flow. IMPRESSION: Limited study secondary to motion artifact. Given limitation of motion artifact no hemodynamically significant stenosis, or occlusion is seen. Further evaluation with MRA or CTA examination is recommended. REFERENCES: SRU CRITERIA. The degree of internal carotid artery stenosis is based on criteria defined by the Society of Radiologists in Ultrasound (SRU). Normal is no stenosis. Mild is less than 50% stenosis. Moderate is 50-69% stenosis. Severe is greater than 69% stenosis to near occlusion. Near occlusion is a markedly narrowed lumen. Total occlusion is no detectable patent lumen. Electronically signed by: Norma Najera On 04/17/2020 04:49:23 AM
[2020-04-17] MEDS ORDERED: ACETAMINOPHEN 650 MG SUPP As Ordered ONE (05:04)
[2020-04-17] MEDS ORDERED: ACETAMINOPHEN 650 MG SUPP PR ONE (05:30)
[2020-04-17 05:37] LABS: CHOLESTEROL LEVEL 147 MG/DL (<200); CHOLESTEROL RISK RATIO 3.062 (<5); HDL CHOLESTEROL 48 MG/DL (>40); LDL CHOLESTEROL 86 MG/DL (<100); NON-HDL-C 99 MG/DL; TRIGLYCERIDES LEVEL 63 MG/DL (<150)
[2020-04-17] MEDS: cefTRIAXone SOD 1 GM in D5W MINI-BAG PLUS 50 ML IV SCH (06:00)
[2020-04-17 06:25] VITALS: BP 140/72
[2020-04-17 06:46] LABS: HEMATOCRIT 35.2 % (36.0-47.0); HEMOGLOBIN 11.7 g/dl (12.0-15.5); MEAN CORPUSCULAR HEMOGLOBIN 30.7 pg (27.0-33.0); MEAN CORPUSCULAR HGB CONC 33.2 g/dl (32.0-36.5); MEAN CORPUSCULAR VOLUME 92.4 fl (80.0-96.0); RED BLOOD COUNT 3.81 10^6/uL (4.00-5.40); WHITE BLOOD COUNT 2.6 10^3/uL (4.0-10.0)
[2020-04-17 07:12] LABS: ALBUMIN 2.5 GM/DL (3.2-5.2); ALT/SGPT 14 U/L (12-78); BILIRUBIN,TOTAL 0.6 MG/DL (0.2-1.0); BLOOD UREA NITROGEN 27 MG/DL (7-18); CALCIUM LEVEL 8.6 MG/DL (8.8-10.2); CARBON DIOXIDE LEVEL 25 MEQ/L (21-32); CHLORIDE LEVEL 104 MEQ/L (98-107); CREATININE FOR GFR 0.93 MG/DL (0.55-1.30); GLOMERULAR FILTRATION RATE > 60.0 (>39); GLUCOSE, FASTING 96 MG/DL (70-100); POTASSIUM SERUM 3.1 MEQ/L (3.5-5.1); SODIUM LEVEL 138 MEQ/L (136-145); TOTAL PROTEIN 5.8 GM/DL (6.4-8.2)
[2020-04-17 07:15] LABS: PLATELET COUNT, AUTOMATED 77 10^3/uL (150-450)
[2020-04-17 08:00] VITALS: BP_SYST 125; BP_SYST 126; BP_SYST 128; BP_DIAS 64; BP_DIAS 68; BP_DIAS 92
[2020-04-17 08:38] LABS: PHOSPHORUS LEVEL 1.6 MG/DL (2.5-4.9)
[2020-04-17] MEDS: MAG SULF 1GM/100ML (MAG RUN) 1 GM in IV 1 EA IV SCH ×2 (08:40→10:01)
[2020-04-17] MEDS: VALPROIC ACID 250MG CAP PO SCH ×2 (08:40→21:00)
[2020-04-17] MEDS: OMEPRAZOLE 20 MG CAP PO SCH (08:41)
[2020-04-17] MEDS: CARVedilol 12.5 MG TAB PO SCH ×2 (08:42→20:28)
[2020-04-17] MEDS: LOSARTAN 50MG TABLET PO SCH (08:42)
[2020-04-17] MEDS ORDERED: ENOXAPARIN 40MG/0.4ML SYRINGE (J1650 PER 10MG) SC SCH (09:00)
[2020-04-17] MEDS: KCL 10MEQ/100ML SWI (KRUN) 10 MEQ in IV 1 EA IV SCH ×3 (11:00→13:25)
[2020-04-17 12:00] VITALS: BP 118/72
--- NOTE | 2020-04-17 14:56 | IPNPDOC ---
Text Note Date of Service The patient was seen on 04/17/20. NOTE S Upon interview, patient is alert and oriented x3 but unable to recall events that led to hospitalization. She denied recent bowel/bladder loss, dysuria, N/V/D, fever, dizziness, SALCEDO, CP and SOB but noted some chills due to feeling cold. History was provided by pt's via phone conversation. Per , patient went to bed early last night and was found on sitting on bedroom floor 2-3 hours later, unable to get up. She appeared "disjointed" and she didn't ask for help to get up. It was suspected that patient had an unwitnessed fall. He also noted that patient's mentation has been "off" for the past week, including less talkative, generalized weakness,decreased oral intake and fatigue. He also noted pt with hx of seizure in 09/2019 and had workup done in [place], but she presented with agitation at that time. Patient has had memory problems but denied pt with official diagnosis of dementia. reports that patient does not like taking pill orally and will gag on purpose to avoid taking oral medications. He often have to separate her regimen in two sessions to get her to take all the medications. Patient uses a walker occasionally at home. Review of Systems CONSTITUTIONAL: Denies fever, unexpected weight change, but noted generalized weakness, decreased oral intake per and some chills. HEENT: Denies headaches, dizziness. CARDIOVASCULAR: Denies chest pain, palpitations, dyspnea on exertion. RESPIRATORY: Denies wheezing, dyspnea, cough or hemoptysis GASTROINTESTINAL: Denies nausea, vomiting, abdominal pain, diarrhea, c onstipation, melena, hematochezia GENITAOURINARY: Denies dysuria, hematuria, urinary frequency, incontinence or retention. SKIN: Denies skin changes, rash and lesions. MUSCULOSKELETAL: Denies muscle or joint pain. NEUROLOGICAL: Denies focal weakness, numbness, tingling, change in Speech Physical Examination VITAL SIGNS: See below GENERAL APPEARANCE: 80 y/o F sitting upright in position of comfort and in no acute distress. Alert & oriented x3. HEENT Exam: Normocephalic and atraumatic, PERRLA, conjunctiva & lids normal, without sclera icteric, mucous membr. moist/pink, pharynx normal, nares patent. NECK: Supple without lymphadenopathy. LUNGS: Clear to auscultation bilaterally with full breath sounds without rales, wheezing, and crackles. CARDIOVASCULAR: Regular rate and rhythm, normal S1 & S2 without gallops, murmurs, rubs ABDOMEN: Soft, non-tender, non-distended with normal bowel sounds. No masses or ecchymosis. EXTREMITIES: 2+ radial and DP pulses bilaterally. No clubbing, cyanosis. Bilateral lower extremities tender to palpation and with 1+ pitting edema. SKIN: Normal turgor and temperature. No rash, lesion MUSCULOSKELETAL: Strength +5/5 in all extremities. NEUROLOGICAL: Moving all four extremities. Intact sensation in all extremities. Cranial nerves III-XII normal. Forgetful during interview. EKG 04/17 0121 Sinus rhythm with 1st degree AV block and occasional supraventricular complexes. Rate: 87bpm. Overnight telemetry reviewed: No acute event reported. Imaging 04/16/2020- CT head w/o contrast IMPRESSION: 1. Moderate age related changes. 2. No acute intracranial abnormality. 04/16/2020- CT C-spine w/o contrast IMPRESSION: No acute findings 04/17/2020- : US Duplex Bilateral Extracranial Arteries IMPRESSION: Limited study secondary to motion artifact. Given limitation of motion artifact no hemodynamically significant stenosis, or occlusion is seen. Further evaluation with MRA or CTA examination is recommended. Fatoumtaa Amor is a 80 y/o F with PMH of breast cancer (s/p bilateral mastectomy, refused letrozole in 08/2015 due to drug SE), HTN, hx of Sz, Hx of subdural hematoma, vit D deficiency and Hx of DVT who was admitted to hospital for fall with suspected loss of consciousness. P # Fall with suspected LOC - Can be multifactorial possibly 2/2 Sz vs. UTI vs metabolic encephalopathy, each addressed below - noted patient has been more disjointed in comparison to baseline over the past week, with poor oral intake. - Patient uses walker occasionally at home. - CT head and C-spine negative - EKG showed sinus rhythm with 1st degree AV block - orthostasis test negative 0800 this am - BCx pending. - Carotid US negative - Cont telemetry monitoring - Cont PT/OT - TSH normal at 1.8, free T4 ehsan at 1.09 # Metabolic encephalopathy - Hypokalemia 3.1, hypomagnesemia 1.5, mildly decreased Ca 8.6, hypophosphatemia 1.6 - Repleted potassium and Mg - Neutral phos ordered. - Recheck BMP in am. # Hx of Sz - Patient's reported patient has hx of Sz with workup at [place] - Requested to obtain old record - Check valproic acid level - EEG ordered # Possible UTI - Patient's UA positive for 1+ leukocyte esterase and positive WBC - Patient febrile 100.2 this am - Cont ceftriaxone - UCx pending # Pancytopenia - Appears chronic - Likely a combination of suspected myelodysplastic syndrome (per 04/2019 oncology note) and dehydration - Cont to monitor CBC # Hypertension -BP 140/72 this am -Cont home medications in the AM # Hx of breast cancer - L breast cancer dx in 1990 s/p lumpectomy, radiation and tamoxifen - L breast cancer recurrence in 1994, s/p L mastectomy - R breast cancer s/p R mastectomy 07/2015, ER positive, LA 1-2% positive, HER2 negative, started on letrozole 08/2015 but discontinued by patient due to side effect. - Cont to monitor # DVT prophylaxis - Cont CHRIS/SCD - No anticoagulation due to hx of subdural hematoma, was not sure of exact diagnosis, she was treated at [place]. VS,Fishbone, I+O VS, Fishbone, I+O Laboratory Tests 04/16/20 23:10 04/17/20 01:10 04/17/20 06:25 Vital Signs Date Time Temp Pulse Resp B/P (MAP) Pulse Ox O2 Delivery O2 Flow Rate FiO2 04/17/20 12:00 98.5 78 18 118/72 (87) 94 Room Air GME ATTESTATION GME ATTESTATION My faculty preceptor for this patient encounter was physically present during the encounter and was fully available. All aspects of the patient interview, examination, medical decision making process, and medical care plan development were reviewed and approved by the faculty preceptor. The faculty preceptor is aware and concurs with the plan as stated in the body of this note and will attest to such by his/her cosignature. ATTENDING NOTE Patient was seen and examined by me personally with the residents and students. Agree with the above assessment and plan MADELINE PRINCE OMS-3 Apr 17, 2020 14:56 AMRITA PUGA MD Apr 21, 2020 14:36
[2020-04-17 16:00] VITALS: BP 118/78
[2020-04-17 16:23] LABS: BLOOD UREA NITROGEN 25 MG/DL (7-18); CALCIUM LEVEL 8.5 MG/DL (8.8-10.2); CARBON DIOXIDE LEVEL 26 MEQ/L (21-32); CHLORIDE LEVEL 103 MEQ/L (98-107); CREATININE FOR GFR 0.93 MG/DL (0.55-1.30); GLOMERULAR FILTRATION RATE > 60.0 (>39); GLUCOSE, FASTING 109 MG/DL (70-100); MAGNESIUM LEVEL 2.3 MG/DL (1.8-2.4); POTASSIUM SERUM 3.8 MEQ/L (3.5-5.1); SODIUM LEVEL 134 MEQ/L (136-145); VALPROIC ACID (DEPAKOTE) 107.2 UG/ML (50.0-100.0)
[2020-04-17] MEDS: NEUTRA-PHOS 1.5 GM PACKET PO SCH ×2 (17:21→20:28)
[2020-04-17 20:00] VITALS: BP 158/74
[2020-04-17] MEDS: ACETAMINOPHEN TAB 650MG DOSE (2X325MG) PO PRN (20:28)
[2020-04-17] MEDS ORDERED: NEUTRA-PHOS 1.5 GM PACKET PO SCH (21:00)
[2020-04-17 22:43] LABS: BLOOD UREA NITROGEN 27 MG/DL (7-18); CARBON DIOXIDE LEVEL 25 MEQ/L (21-32); CHLORIDE LEVEL 105 MEQ/L (98-107); CREATININE FOR GFR 0.89 MG/DL (0.55-1.30); GLOMERULAR FILTRATION RATE > 60.0 (>39); GLUCOSE, FASTING 120 MG/DL (70-100); MAGNESIUM LEVEL 1.9 MG/DL (1.8-2.4); POTASSIUM SERUM 3.6 MEQ/L (3.5-5.1); SODIUM LEVEL 136 MEQ/L (136-145)
[2020-04-18] MEDS: ACETAMINOPHEN TAB 650MG DOSE (2X325MG) PO PRN (00:32)
[2020-04-18 04:00] VITALS: BP 149/97
[2020-04-18] MEDS ORDERED: SLF 3 ML SYR IV PRN (04:45)
[2020-04-18 06:13] LABS: HEMATOCRIT 37.3 % (36.0-47.0); MEAN CORPUSCULAR HEMOGLOBIN 30.4 pg (27.0-33.0); MEAN CORPUSCULAR HGB CONC 32.2 g/dl (32.0-36.5); MEAN CORPUSCULAR VOLUME 94.4 fl (80.0-96.0); RED BLOOD COUNT 3.95 10^6/uL (4.00-5.40); WHITE BLOOD COUNT 2.3 10^3/uL (4.0-10.0)
[2020-04-18] MEDS: SLF 3 ML SYR IV SCH ×3 (06:21→22:17)
[2020-04-18] MEDS: cefTRIAXone SOD 1 GM in D5W MINI-BAG PLUS 50 ML IV SCH (06:21)
[2020-04-18 06:37] LABS: CALCIUM LEVEL 8.6 MG/DL (8.8-10.2); CREATININE FOR GFR 1.03 MG/DL (0.55-1.30); PHOSPHORUS LEVEL 2.5 MG/DL (2.5-4.9); POTASSIUM SERUM 4.5 MEQ/L (3.5-5.1)
[2020-04-18 06:47] LABS: PLATELET COUNT, AUTOMATED 54 10^3/uL (150-450)
[2020-04-18 08:00] VITALS: BP 144/100
[2020-04-18] MEDS: LOSARTAN 50MG TABLET PO SCH (09:00)
[2020-04-18] MEDS: CARVedilol 12.5 MG TAB PO SCH ×2 (09:00→22:17)
[2020-04-18] MEDS: OMEPRAZOLE 20 MG CAP PO SCH (09:01)
[2020-04-18] MEDS: NEUTRA-PHOS 1.5 GM PACKET PO SCH (09:01)
[2020-04-18] MEDS: VALPROIC ACID 250MG CAP PO SCH (09:01)
[2020-04-18] MEDS: VITAMIN D 1,000 INTERNATIONAL UNITS TABLET PO SCH (11:22)
--- NOTE | 2020-04-18 11:53 | IPNPDOC ---
Text Note Date of Service The patient was seen on 04/18/20. NOTE S Upon interview, patient is alert and oriented x2. She was disoriented to place and cannot recall events that led to hospitalization. She denied dysuria, N/V/D, fever, chills, dizziness, SALCEDO, CP and SOB. A phone conversation was held with pt's son. He noted that patient's current presentation is very similar to how she presented in 09/2019 in which she was admitted to [facility]. 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 She is followed by [facility] and recently had EEG done in the last month. Son's phone number is [phone]. Review of Systems CONSTITUTIONAL: Denies fever, unexpected weight change, chills. HEENT: Denies headaches, dizziness. CARDIOVASCULAR: Denies chest pain, palpitations, dyspnea on exertion. RESPIRATORY: Denies wheezing, dyspnea, cough or hemoptysis GASTROINTESTINAL: Denies nausea, vomiting, abdominal pain, diarrhea, constipation, melena, hematochezia GENITAOURINARY: Denies dysuria, hematuria, urinary frequency, incontinence or retention. SKIN: Denies skin changes, rash and lesions. MUSCULOSKELETAL: Denies muscle or joint pain. NEUROLOGICAL: Denies focal weakness, numbness, tingling, change in Speech Physical Examination VITAL SIGNS: See below GENERAL APPEARANCE: 80 y/o F sitting upright in position of comfort and in no acute distress. Alert & oriented x2, disoriented to place. HEENT Exam: Normocephalic and atraumatic, PERRLA, conjunctiva & lids normal, without sclera icteric, mucous membr. moist/pink, pharynx normal, nares patent. NECK: Supple without lymphadenopathy. LUNGS: Clear to auscultation bilaterally with full breath sounds without rales, wheezing, and crackles. CARDIOVASCULAR: Regular rate and rhythm, normal S1 & S2 without gallops, murmurs, rubs ABDOMEN: Soft, non-tender, non-distended with normal bowel sounds. No masses or ecchymosis. EXTREMITIES: 2+ radial and PT pulses bilaterally. No clubbing, cyanosis, edema. CHRIS stockings noted. SKIN: Normal turgor and temperature. No rash, lesion MUSCULOSKELETAL: Strength +5/5 in all extremities. NEUROLOGICAL: Moving all four extremities. Intact sensation in all extremities. Cranial nerves III-XII normal. Forgetful during interview. EKG 04/17 0121 Sinus rhythm with 1st degree AV block and occasional supraventricular complexes. Rate: 87bpm. Overnight telemetry reviewed: No acute event reported. Imaging 04/16/2020- CT head w/o contrast IMPRESSION: 1. Moderate age related changes. 2. No acute intracranial abnormality. 04/16/2020- CT C-spine w/o contrast IMPRESSION: No acute findings 04/17/2020- : US Duplex Bilateral Extracranial Arteries IMPRESSION: Limited study secondary to motion artifact. Given limitation of motion artifact no hemodynamically significant stenosis, or occlusion is seen. Further evaluation with MRA or CTA examination is recommende dCaitlin Ham Brooke Amor is a 80 y/o F with PMH of breast cancer (s/p bilateral mastectomy, refused letrozole in 08/2015 due to drug SE), HTN, hx of Sz (09/2019), Hx of subdural hematoma (s/p fall 02/2019), vit D deficiency and Hx of DVT who was admitted to hospital for fall with suspected loss of consciousness. P # Fall with suspected LOC - Can be multifactorial possibly 2/2 Sz vs. UTI vs metabolic encephalopathy, each addressed below - noted patient has been more disjointed in comparison to baseline over the past week, with poor oral intake. - Patient uses walker occasionally at home. - CT head and C-spine negative - EKG showed sinus rhythm with 1st degree AV block - orthostasis test negative 0800 04/17/2020 - BCx with negative preliminary result, UCx negative - Carotid US negative - Cont telemetry monitoring - Cont PT/OT - TSH normal at 1.8, free T4 ehsan at 1.09 04/17/2020 - Strict I/O to monitor fluid intake, nursing order to encourage fluid intake. - Speech therapy performed swallow test at bedside, recommended mechanical soft diet and nectar thick liquid, diet changed accordingly. # Metabolic encephalopathy - Hypokalemia, hypomagnesemia, hypophosphatemia repleted - Recheck BMP in am. # Hx of Sz - Patient's reported patient has hx of Sz with workup at [place] - Requested to obtain old record - Valproic acid level high at 107.2 yesterday and home meds held yesterday - Cont home meds today, recheck level again tomorrow - EEG pending # Possible UTI - Patient's UA positive for 1+ leukocyte esterase and positive WBC - Patient afebrile - UCx negative - Cont ceftriaxone for 1 more day # Leukopenia - Appears chronic - Only low WBC and platelet today - Likely 2/2 suspected myelodysplastic syndrome (per 04/2019 oncology note) - Cont to monitor CBC # Hypertension -Cont home medication # Hx of breast cancer - L breast cancer dx in 1990 s/p lumpectomy, radiation and tamoxifen - L breast cancer recurrence in 1994, s/p L mastectomy - R breast cancer s/p R mastectomy 07/2015, ER positive, TN 1-2% positive, HER2 negative, started on letrozole 08/2015 but discontinued by patient due to side effect. - Cont to monitor # DVT prophylaxis - Cont CHRIS/SCD - No anticoagulation due to hx of subdural hematoma 2/2 fall in 04/2017. VS,Fishbone, I+O VS, Fishbone, I+O Laboratory Tests 04/17/20 15:37 04/17/20 22:04 04/18/20 05:31 Vital Signs Date Time Temp Pulse Resp B/P (MAP) Pulse Ox O2 Delivery O2 Flow Rate FiO2 04/18/20 09:00 97 144/100 04/18/20 08:00 99.1 22 93 Room Air I&O- Last 24 Hours up to 6 AM 04/18/20 06:00 Intake Total 800 ml Output Total 475 ml Balance 325 ml GME ATTESTATION GME ATTESTATION My faculty preceptor for this patient encounter was physically present during the encounter and was fully available. All aspects of the patient interview, examination, medical decision making process, and medical care plan development were reviewed and approved by the faculty preceptor. The faculty preceptor is aware and concurs with the plan as stated in the body of this note and will attest to such by his/her cosignature. ATTENDING NOTE Patient was seen and examined by me personally with the residents and students. Agree with the above assessment and plan MADELINE PRINCE OMS-3 Apr 18, 2020 11:53 AMRITA PUGA MD Apr 21, 2020 14:35
[2020-04-18 12:00] VITALS: BP 121/94
[2020-04-18 16:00] VITALS: BP 123/65
[2020-04-18 20:00] VITALS: BP 140/72
[2020-04-18] MEDS: DIVALPROEX SPRINKLE 125 MG CAP PO SCH (22:17)
[2020-04-18 23:35] VITALS: BP 142/90
[2020-04-18] MEDS ORDERED: ALPRAZolam 0.5 MG TAB PO ONE (23:45)
[2020-04-19 06:00] VITALS: BP 145/93
[2020-04-19] MEDS: SLF 3 ML SYR IV SCH ×3 (06:14→21:56)
[2020-04-19] MEDS: cefTRIAXone SOD 1 GM in D5W MINI-BAG PLUS 50 ML IV SCH (06:14)
[2020-04-19 06:58] LABS: HEMATOCRIT 32.2 % (36.0-47.0); HEMOGLOBIN 10.5 g/dl (12.0-15.5); MEAN CORPUSCULAR HEMOGLOBIN 30.7 pg (27.0-33.0); MEAN CORPUSCULAR HGB CONC 32.6 g/dl (32.0-36.5); MEAN CORPUSCULAR VOLUME 94.2 fl (80.0-96.0); RED BLOOD COUNT 3.42 10^6/uL (4.00-5.40); WHITE BLOOD COUNT 2.3 10^3/uL (4.0-10.0)
[2020-04-19 07:04] LABS: PLATELET COUNT, AUTOMATED 54 10^3/uL (150-450)
[2020-04-19 07:18] LABS: BLOOD UREA NITROGEN 27 MG/DL (7-18); CALCIUM LEVEL 8.2 MG/DL (8.8-10.2); CARBON DIOXIDE LEVEL 29 MEQ/L (21-32); CHLORIDE LEVEL 105 MEQ/L (98-107); GLOMERULAR FILTRATION RATE > 60.0 (>39); GLUCOSE, FASTING 102 MG/DL (70-100); POTASSIUM SERUM 3.6 MEQ/L (3.5-5.1); SODIUM LEVEL 139 MEQ/L (136-145); VALPROIC ACID (DEPAKOTE) 88.3 UG/ML (50.0-100.0)
[2020-04-19 09:44] LABS: ATYPICAL LYMPH 9 % (0-5); LYMPHOCYTES 20 % (16-44); MONOCYTES 3 % (0-5); NEUTROPHILS 44 % (28-66)
[2020-04-19 09:45] LABS: PLATELET ESTIMATE DECREASED (NORMAL)
[2020-04-19] MEDS: OMEPRAZOLE 20 MG CAP PO SCH (09:53)
[2020-04-19] MEDS: CARVedilol 12.5 MG TAB PO SCH ×2 (09:56→20:53)
[2020-04-19] MEDS: VITAMIN D 1,000 INTERNATIONAL UNITS TABLET PO SCH (10:02)
[2020-04-19] MEDS: LOSARTAN 50MG TABLET PO SCH (10:02)
[2020-04-19] MEDS: DIVALPROEX SPRINKLE 125 MG CAP PO SCH ×2 (10:03→20:53)
[2020-04-19 14:00] VITALS: BP 111/68
--- NOTE | 2020-04-19 16:50 | IPNPDOC ---
Text Note Date of Service The patient was seen on 04/19/20. NOTE S Upon interview, patient's mentation has significantly improved. She was alert and oriented x3 and was able to engage in a full conversation without losing focus. She denied dysuria, N/V/D, fever, chills, cough, dizziness, SALCEDO, CP and SOB. She has a good appetite and has no complaint. Review of Systems CONSTITUTIONAL: Denies fever, unexpected weight change, chills. HEENT: Denies headaches, dizziness. CARDIOVASCULAR: Denies chest pain, palpitations, dyspnea on exertion. RESPIRATORY: Denies wheezing, dyspnea, cough or hemoptysis GASTROINTESTINAL: Denies nausea, vomiting, abdominal pain, diarrhea, constipation, melena, hematochezia GENITAOURINARY: Denies dysuria, hematuria, urinary frequency, incontinence or retention. SKIN: Denies skin changes, rash and lesions. MUSCULOSKELETAL: Denies muscle or joint pain. Physical Examination VITAL SIGNS: See below GENERAL APPEARANCE: 80 y/o F sitting in chair in position of comfort and in no acute distress. Alert & oriented x3. HEENT Exam: Normocephalic and atraumatic, PERRL, conjunctiva & lids normal, without sclera icteric, mucous membr. moist/pink, pharynx normal, nares patent. NECK: Supple without lymphadenopathy. LUNGS: Clear to auscultation bilaterally with full breath sounds without rales, wheezing, and crackles. CARDIOVASCULAR: Regular rate and rhythm, normal S1 & S2 without gallops, murmurs, rubs ABDOMEN: Soft, non-tender, non-distended with normal bowel sounds. No masses or ecchymosis. EXTREMITIES: 2+ radial and PT pulses bilaterally. No clubbing, cyanosis, edema. CHRIS stockings noted. SKIN: Normal turgor and temperature. No rash, lesion MUSCULOSKELETAL: Strength +5/5 in all extremities. NEUROLOGICAL: Moving all four extremities. Intact sensation in all extremities. Cranial nerves II-XII normal. EKG 04/17 0121 Sinus rhythm with 1st degree AV block and occasional supraventricular complexes. Rate: 87bpm. Overnight telemetry reviewed: No acute event reported. Imaging 04/16/2020- CT head w/o contrast IMPRESSION: 1. Moderate age related changes. 2. No acute intracranial abnormality. 04/16/2020- CT C-spine w/o contrast IMPRESSION: No acute findings 04/17/2020- : US Duplex Bilateral Extracranial Arteries IMPRESSION: Limited study secondary to motion artifact. Given limitation of motion artifact no hemodynamically significant stenosis, or occlusion is seen. Further evaluation with MRA or CTA examination is recommended. Fatoumata Amor is a 80 y/o F with PMH of breast cancer (s/p bilateral mastectomy, refused letrozole in 08/2015 due to drug SE), HTN, hx of Sz (09/2019), Hx of subdural hematoma (s/p fall 02/2019), vit D deficiency and Hx of DVT who was admitted to hospital for fall with suspected loss of consciousness. P # Fall with suspected LOC - Patient mentation status improved today and able to engage in full conversation. - Cont PT/OT - Strict I/O to monitor fluid intake, nursing order to encourage fluid intake. - Advance to lvl 3 mechanical soft diet with thin liquid per speech therapy recommendation - Phone conversation was held with pt's , he is ok with the possibility to transition patient to acute/subacute rehab, his only request is that the facility needs to be within [place] since he can't drive to visit patient. # Metabolic encephalopathy - No electrolyte abnormality noted - Recheck BMP in am. # Hx of Sz - Patient's reported patient has hx of Sz with workup at [place] - Requested to obtain old record, paperwork still pending - Valproic acid level 88.3 - Cont home meds - EEG pending # Possible UTI - Patient's UA positive for 1+ leukocyte esterase and positive WBC - Patient afebrile - UCx negative - Received 1 day of cefazolin and 2 days of IV ceftriaxone, cont ceftriaxone for 2 more days (5 day course total) # Pancytopenia - Appears chronic - Likely 2/2 suspected myelodysplastic syndrome (per 04/2019 oncology note) - Cont to monitor CBC # Hypertension -Cont home medication # Hx of breast cancer - L breast cancer dx in 1990 s/p lumpectomy, radiation and tamoxifen - L breast cancer recurrence in 1994, s/p L mastectomy - R breast cancer s/p R mastectomy 07/2015, ER positive, [place] 1-2% positive, HER2 negative, started on letrozole 08/2015 but discontinued by patient due to side effect. - Cont to monitor # DVT prophylaxis - Cont CHRIS/SCD - No anticoagulation due to hx of subdural hematoma / fall in 04/2017. Disposition: Family agreeable to transition of care to acute/subacute rehab when patient is ready from a medical standpoint. VS,Fishbone, I+O VS, Fishbone, I+O Laboratory Tests 04/19/20 06:30 Vital Signs Date Time Temp Pulse Resp B/P (MAP) Pulse Ox O2 Delivery O2 Flow Rate FiO2 04/19/20 14:00 97.8 70 18 111/68 (82) 97 Room Air I&O- Last 24 Hours up to 6 AM 04/19/20 06:00 Intake Total 390 ml Balance 390 ml GME ATTESTATION GME ATTESTATION My faculty preceptor for this patient encounter was physically present during the encounter and was fully available. All aspects of the patient interview, examination, medical decision making process, and medical care plan development were reviewed and approved by the faculty preceptor. The faculty preceptor is aware and concurs with the plan as stated in the body of this note and will attest to such by his/her cosignature. ATTENDING NOTE Patient was seen and examined by me personally with the residents and students. Agree with the above assessment and plan MADELINE PRINCE OMS-3 Apr 19, 2020 16:50 AMRITA PUGA MD Apr 21, 2020 14:35
[2020-04-19] MEDS ORDERED: VANCOMYCIN HCL 750 MG, VIAL MATE ADAPTER 1 EACH in D5W 250 ML IV ONE (20:00)
[2020-04-19] MEDS ORDERED: VANCOMYCIN HCL 500 MG in D5W MINI-BAG PLUS 100 ML IV ONE (21:00)
[2020-04-19 22:00] VITALS: BP 96/55
[2020-04-20] VITALS: BP 121/67
[2020-04-20] MEDS: SLF 3 ML SYR IV SCH ×3 (05:58→20:30)
[2020-04-20 06:00] VITALS: BP 124/69
[2020-04-20 06:51] LABS: HEMATOCRIT 31.6 % (36.0-47.0); HEMOGLOBIN 10.2 g/dl (12.0-15.5); MEAN CORPUSCULAR HEMOGLOBIN 30.3 pg (27.0-33.0); MEAN CORPUSCULAR HGB CONC 32.3 g/dl (32.0-36.5); MEAN CORPUSCULAR VOLUME 93.8 fl (80.0-96.0); RED BLOOD COUNT 3.37 10^6/uL (4.00-5.40); WHITE BLOOD COUNT 2.3 10^3/uL (4.0-10.0)
[2020-04-20 06:53] LABS: PLATELET COUNT, AUTOMATED 53 10^3/uL (150-450)
[2020-04-20 07:13] LABS: BLOOD UREA NITROGEN 29 MG/DL (7-18); CALCIUM LEVEL 8.7 MG/DL (8.8-10.2); CARBON DIOXIDE LEVEL 28 MEQ/L (21-32); CHLORIDE LEVEL 104 MEQ/L (98-107); CREATININE FOR GFR 0.82 MG/DL (0.55-1.30); GLOMERULAR FILTRATION RATE > 60.0 (>39); GLUCOSE, FASTING 89 MG/DL (70-100); POTASSIUM SERUM 3.8 MEQ/L (3.5-5.1); SODIUM LEVEL 136 MEQ/L (136-145)
[2020-04-20] MEDS ORDERED: VANCOMYCIN HCL 1,000 MG, VIAL MATE ADAPTER 1 EACH in D5W 250 ML IV SCH (08:00)
[2020-04-20] MEDS: CARVedilol 12.5 MG TAB PO SCH ×2 (09:03→20:33)
[2020-04-20] MEDS: VITAMIN D 1,000 INTERNATIONAL UNITS TABLET PO SCH (09:03)
[2020-04-20] MEDS: OMEPRAZOLE 20 MG CAP PO SCH (09:03)
[2020-04-20] MEDS: LOSARTAN 50MG TABLET PO SCH (09:04)
[2020-04-20] MEDS: DIVALPROEX SPRINKLE 125 MG CAP PO SCH ×2 (09:05→20:34)
--- NOTE | 2020-04-20 10:44 | ECHO ---
DATE OF PROCEDURE: 04/17/2020 Age: Gender: Female Height: 156 cm Weight: 62 kg REFERRING PHYSICIAN: Dr. Susie Gibson INDICATION: Syncope. MEASUREMENTS: IV 1.0 LV 3.8 LVPW 0.9 LA 3.1 Aorta 3.9 RV 2.9 LA 1.9 Mitral E wave velocity 56, A wave 1.05 E prime septal 4.7 E prime lateral 6.3 FINDINGS: The study is of acceptable technical quality. The patient is in sinus rhythm. Left ventricle is of normal size and has hyperdynamic contractility. Estimated left ventricular ejection fraction (LVEF) 70%. Right ventricle appears normal size and systolic function. Both atria appear normal. Aortic valve has 3 cusps. It is mildly sclerotic, but has preserved mobility. Mitral valve also reveals mild degenerative abnormalities with mitral annular calcifications. Mobility of leaflets is preserved. Tricuspid valve appears normal. Pulmonic valve was not well seen. Trivial pericardial effusion is noted. Inferior vena cava is of normal size and almost completely collapses with inspiration indicative of normal central venous pressure. Aortic root is borderline dilated at 3.9 cm. Aortic arch and abdominal aorta were not well seen. Doppler interrogation of the aortic valve reveals no stenosis or insufficiency. There is trace mitral and tricuspid insufficiency. Calculated pulmonary artery pressure is within normal limits. Mitral inflow pattern and tissue doppler imaging of mitral annulus revealed grade 1 diastolic dysfunction. CONCLUSIONS: 1. Study is of fair technical quality. The patient is in sinus rhythm. 2. Normal LV size with hyperdynamic LV systolic function. Estimated left ventricular ejection fraction (LVEF) 70%. Grade 1 diastolic dysfunction. 3. Aortic sclerosis without significant stenosis or insufficiency. Mildly dilated aortic root (3.9 cm). 4. No additional significant valvular disease. 5. Likely normal central venous pressure and normal pulmonary artery pressure. COMMENTS: No findings to explain syncopal event. MTDD
[2020-04-20 14:00] VITALS: BP 116/68
--- NOTE | 2020-04-20 16:56 | IPNPDOC ---
Text Note Date of Service The patient was seen on 04/20/20. NOTE S Patient continues to be alert and oriented x3 today and was very talkative. She denied dysuria, N/V/D, constipation, fever, chills, cough, dizziness, SALCEDO, CP and SOB. She slept well last night, has good appetite and has no complaint. She has not have a bowel movement since yesterday but denies feeling constipated. Review of Systems CONSTITUTIONAL: Denies fever, unexpected weight change, chills. HEENT: Denies headaches, dizziness. CARDIOVASCULAR: Denies chest pain, palpitations, dyspnea on exertion. RESPIRATORY: Denies wheezing, dyspnea, cough or hemoptysis GASTROINTESTINAL: Denies nausea, vomiting, abdominal pain, diarrhea, constipation, melena, hematochezia GENITOURINARY: Denies dysuria, hematuria, urinary frequency, incontinence or retention. SKIN: Denies skin changes, rash and lesions. MUSCULOSKELETAL: Denies muscle or joint pain. Physical Examination VITAL SIGNS: See below GENERAL APPEARANCE: 80 y/o F sitting in chair in position of comfort, just fi nished her lunch and in no acute distress. Alert & oriented x3. HEENT Exam: Normocephalic and atraumatic, PERRL, conjunctiva & lids normal, without sclera icteric, mucous membr. moist/pink, pharynx normal, nares patent. NECK: Supple without lymphadenopathy. LUNGS: Clear to auscultation bilaterally with full breath sounds without rales, wheezing, and crackles. CARDIOVASCULAR: Regular rate and rhythm, normal S1 & S2 without gallops, murmurs, rubs ABDOMEN: Soft, non-tender, non-distended with normal bowel sounds. No masses or ecchymosis. EXTREMITIES: 2+ radial and PT pulses bilaterally. No clubbing, cyanosis, edema. CHRIS stockings noted. SKIN: Normal turgor and temperature. No rash, lesion MUSCULOSKELETAL: Strength +5/5 in all extremities. NEUROLOGICAL: Moving all four extremities. Intact sensation in all extremities. Cranial nerves II-XII normal. Echocardiogram 04/17/2020 Conclusion: 1. Study is of fair technical quality. The patient is in sinus rhythm. 2. Normal LV size with hyperdynamic LV systolic function. Estimated left ventricular ejection fraction (LVEF) 70%. Grade 1 diastolic dysfunction. 3. Aortic sclerosis without significant stenosis or insufficiency. Mildly d ilated aortic root (3.9 cm). 4. No additional significant valvular disease. 5. Likely normal central venous pressure and normal pulmonary artery pressure. EKG 04/17 0121 Sinus rhythm with 1st degree AV block and occasional supraventricular complexes. Rate: 87bpm. Overnight telemetry reviewed: No acute event reported. Imaging 04/16/2020- CT head w/o contrast IMPRESSION: 1. Moderate age related changes. 2. No acute intracranial abnormality. 04/16/2020- CT C-spine w/o contrast IMPRESSION: No acute findings 04/17/2020- : US Duplex Bilateral Extracranial Arteries IMPRESSION: Limited study secondary to motion artifact. Given limitation of motion artifact no hemodynamically significant stenosis, or occlusion is seen. Further evaluation with MRA or CTA examination is recommended. Fatoumata Amor is a 80 y/o F with PMH of breast cancer (s/p bilateral mastectomy, refused letrozole in 08/2015 due to drug SE), HTN, hx of Sz (09/2019), Hx of subdural hematoma (s/p fall 02/2019), vit D deficiency and Hx of DVT who was admitted to hospital for fall with suspected loss of consciousness. P # Fall with suspected LOC - Patient talkative and with good mentation - Cont PT/OT, nurse noted patient ambulated to bathroom with minimal assistance using walker today, will touch base with PT tomorrow am for disposition recommendation. - Strict I/O to monitor fluid intake, nursing order to encourage fluid intake. - EEG - 08/05 BCx returned positive for gram positive cocci in cluster yesterday, repeat Bx x2 drawn yesterday and patient received 2 dose of vancomycin since yesterday - Lab relayed organism is coag negative staph, likely contamination, discontinue vancomycin. # Metabolic encephalopathy - resolved. - Recheck BMP in am. # Hx of Sz - Patient's reported patient has hx of Sz with workup at [place] - Requested to obtain old record, paperwork still pending - Cont home meds - EEG pending # Possible UTI - Patient's UA positive for 1+ leukocyte esterase and positive WBC - Patient afebrile - UCx negative - Received 1 day of cefazolin and 2 days of IV ceftriaxone, then switched to vancomycin due to positive BCx (08/05). Received 2 dose of Vanc, now discontinued, BCx likely contamination, labs reported growing coag negative staph. - No Abx at this time. # Pancytopenia with elevated band neutrophil - 04/19 CBC diff with elevated bands of 24 and elevated atypical lymphocyte of 9 - Concerning for leukemia - Hx of suspected myelodysplastic syndrome (per 04/2019 oncology note) - CBC with diff tomorrow morning with LDH and peripheral smear. # Hypertension -Cont home medication # Hx of breast cancer - L breast cancer dx in 1990 s/p lumpectomy, radiation and tamoxifen - L breast cancer recurrence in 1994, s/p L mastectomy - R breast cancer s/p R mastectomy 07/2015, ER positive, [place] 1-2% positive, HER2 negative, started on letrozole 08/2015 but discontinued by patient due to side effect. - Cont to monitor # DVT prophylaxis - Cont CHRIS/SCD - No anticoagulation due to hx of subdural hematoma 09/05 fall in 04/2017. Disposition: Family agreeable to transition of care to acute/subacute rehab when patient is ready from a medical standpoint. Nurse noted patient ambulated to bathroom with minimal assistance using walker today, will touch base with PT tomorrow am for disposition recommendation. VS,Fishbone, I+O VS, Fishbone, I+O Laboratory Tests 04/20/20 06:09 Vital Signs Date Time Temp Pulse Resp B/P (MAP) Pulse Ox O2 Delivery O2 Flow Rate FiO2 04/20/20 14:00 98.3 78 17 116/68 (84) 97 Room Air I&O- Last 24 Hours up to 6 AM 04/20/20 06:00 Intake Total 760 ml Output Total 200 ml Balance 560 ml GME ATTESTATION GME ATTESTATION My faculty preceptor for this patient encounter was physically present during the encounter and was fully available. All aspects of the patient interview, examination, medical decision making process, and medical care plan development were reviewed and approved by the faculty preceptor. The faculty preceptor is aware and concurs with the plan as stated in the body of this note and will attest to such by his/her cosignature. ATTENDING NOTE Patient was seen and examined by me and personally with the residents and students. Agree with the assessment and plan MADELINE PRINCE OMS-3 Apr 20, 2020 16:55 AMRITA PUGA MD Apr 21, 2020 13:16
[2020-04-20 22:00] VITALS: BP 119/82
[2020-04-21] MEDS: SLF 3 ML SYR IV SCH ×3 (05:21→21:29)
[2020-04-21 06:00] VITALS: BP 123/81
[2020-04-21 06:29] LABS: BASO % 0.4 % (0.0-1.0); EOS % 0.4 % (0.0-3.0); HEMOGLOBIN 10.4 g/dl (12.0-15.5); LYMPH # 0.7 10^3/uL (1.5-5.0); MEAN CORPUSCULAR HEMOGLOBIN 30.1 pg (27.0-33.0); MEAN CORPUSCULAR HGB CONC 32.5 g/dl (32.0-36.5); MEAN CORPUSCULAR VOLUME 92.8 fl (80.0-96.0); MONO # 0.4 10^3/uL (0.0-0.8); MONO % 18.1 % (0.0-5.0); NEUTROPHILS # 1.2 10^3/uL (1.5-8.5); NEUTROPHILS % 50.2 % (36.0-66.0); RED BLOOD COUNT 3.45 10^6/uL (4.00-5.40); WHITE BLOOD COUNT 2.4 10^3/uL (4.0-10.0)
[2020-04-21 06:32] LABS: PLATELET COUNT, AUTOMATED 56 10^3/uL (150-450)
[2020-04-21 06:56] LABS: BLOOD UREA NITROGEN 26 MG/DL (7-18); CALCIUM LEVEL 8.2 MG/DL (8.8-10.2); CARBON DIOXIDE LEVEL 27 MEQ/L (21-32); CHLORIDE LEVEL 102 MEQ/L (98-107); CREATININE FOR GFR 0.72 MG/DL (0.55-1.30); GLOMERULAR FILTRATION RATE > 60.0 (>39); GLUCOSE, FASTING 85 MG/DL (70-100); SODIUM LEVEL 134 MEQ/L (136-145)
[2020-04-21] MEDS ORDERED: MIRALAX *UNIT DOSE* 17GM PACKET PO PRN (08:45)
[2020-04-21] MEDS: OMEPRAZOLE 20 MG CAP PO SCH (08:57)
[2020-04-21] MEDS: VITAMIN D 1,000 INTERNATIONAL UNITS TABLET PO SCH (08:58)
[2020-04-21] MEDS: CARVedilol 12.5 MG TAB PO SCH ×2 (08:58→21:28)
[2020-04-21] MEDS: LOSARTAN 50MG TABLET PO SCH (08:59)
[2020-04-21] MEDS: DIVALPROEX SPRINKLE 125 MG CAP PO SCH ×2 (09:00→21:29)
[2020-04-21 09:41] LABS: LDH LACTATE DEHYDROGENASE 159 U/L (84-246); VALPROIC ACID (DEPAKOTE) 99.8 UG/ML (50.0-100.0)
--- NOTE | 2020-04-21 11:08 | ECGEPIP ---
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
[2020-04-21 14:00] VITALS: BP 94/57
[2020-04-21 14:05] VITALS: BP 98/60
--- NOTE | 2020-04-21 14:35 | IPNPDOC ---
Text Note Date of Service The patient was seen on 04/21/20. NOTE Patient was seen and examined by me this morning with the residents personally. Patient is alert, oriented 3 and is conversing well. She denied any overnight events. She has had good appetite. Physical Examination GENERAL APPEARANCE: Sitting comfortably in chair Alert & oriented x3. HEENT Exam: Normocephalic and atraumatic, no icterus, no pallor NECK: Supple without lymphadenopathy. LUNGS: Clear to auscultation bilaterally without rales, wheezing, and crackles. CARDIOVASCULAR: Regular rate and rhythm, normal S1 & S2 without gallops, murmurs, rubs ABDOMEN: Soft, non-tender, non-distended with normal bowel sounds. No masses or ecchymosis. EXTREMITIES: 2+ radial and PT pulses bilaterally. No clubbing, cyanosis, edema. CHRIS stockings noted. SKIN: Normal turgor and temperature. No rash, lesion MUSCULOSKELETAL: Strength +5/5 in all extremities. NEUROLOGICAL: Moving all four extremities. Cranial nerves II-XII normal. Assessment and plan Miss Amor who has a past medical history of breast cancer status post bilateral mastectomy, history of subdural hematoma status post fall in 2019 was admitted to the hospital as she was found to be lying on the ground and there was a suspected loss of consciousness. The patient was in a confused state. After she was found on the ground and one of the differentials which was made with possible post ictal state because of her seizures. CT scan of the head was done in the ER along with CT scan of the cervical spine, which revealed no acute findings. The patient also had bilateral extracranial arteries Dopplers which did not show any significant stenosis. Metabolic causes of encephalopathy were ruled out. The patient was continued on the valproic acid and multiple efforts have been made to get the medical records from the outside facility and the yesterday sign the release forms for us to get the reports. The reports are currently pending. The patient also had a falsely positive one out of 4 b lood cultures for staph hominis, not requiring any antibiotics. Currently, the patient has been evaluated by PT, OT and potentially will require subacute rehabilitation and case operator are working on it. 1. Suspected fall with loss of consciousness. CT head, CT cervical spine reviewed lesions telemetry 48 hours. No events. No orthostatic signs. As the patient was found confused, sitting on the floor. No proper event history is available. We have spoken to the son and the but still have not been able to get the proper sequence of events. 2-D echo was done which showed Normal LV size with hyperdynamic LV systolic function. Estimated left ventricular ejection fraction (LVEF) 70%. Grade 1 diastolic dysfunction.. There also was some Aortic sclerosis without significant stenosis or insufficiency. Mildly dilated aortic root (3.9 cm). . There was no additional significant valvular disease. 2. Hx of seizure disorder. The patient's report that she has a history of seizure disorder and the workup has been done in [place]. We're trying to get the reports from the outside hospital and the release form was finally signed yesterday. EEG has been done which is pending right now. The patient continues to be on valproic acid. 3. One out of 4 blood cultures positive for staph hominis. False-positive likely contamination. No need of antibiotics. 4. Pancytopenia with elevated band : 04/19 CBC diff with elevated bands of 24 percent . The patient has a history of myelodysplastic syndrome. As per the oncology's last note. We did a peripheral smear which did not show any acute issues going on, but the patient will definitely need to be followed up by [facility] on on discharge 5. Hypertension : Cont home medication 6. Hx of breast cancer . L breast cancer dx in 1990 s/p lumpectomy, radiation and tamoxifen, L breast cancer recurrence in 1994, s/p L mastectomy . R breast cancer s/p R mastectomy 07/2015, ER positive, [place] 1-2% positive, HER2 negative, started on letrozole 08/2015 but discontinued by patient due to side effect. DVT prophylaxis : Cont CHRIS/SCD Disposition:: Family agreeable to transition of care to acute/subacute rehab when patient is ready from a medical standpoint. Currently awaiting a subacute rehabilitation Divya SADLER I+O VSDivya I+O Laboratory Tests 04/21/20 05:53 Vital Signs Date Time Temp Pulse Resp B/P (MAP) Pulse Ox O2 Delivery O2 Flow Rate FiO2 04/21/20 08:58 70 123/81 04/21/20 06:00 98.7 18 97 Room Air I&O- Last 24 Hours up to 6 AM 04/21/20 06:00 Intake Total 810 ml Output Total 200 ml Balance 610 ml AMRITA PUGA MD Apr 21, 2020 14:35
--- NOTE | 2020-04-21 15:51 | EEG ---
DATE OF STUDY: 04/18/2020 REFERRING PHYSICIAN: Dr. Gibson DIAGNOSIS: Seizure. EEG# [id number] HISTORY: The patient is a 80-year-old woman with a history of breast cancer and seizure. She also has a subdural hematoma. This EEG was done to rule out epileptic potential. She was admitted at [facility] due to fall with loss of consciousness. MEDICATIONS: She is currently taking: - Ceftriaxone - Carvedilol - Depakote - Omeprazole, etc. TECHNICAL DESCRIPTION: This baseline EEG was recorded by 21-scalp, ear, and two EKG electrodes and was reviewed in bipolar and referential montages following reformatting in 10-20 international electrode placement system. INTERPRETATION: Patient was noted to be in awake and drowsy states during this EEG. Resting and awake background rhythm consisted of 9 Hz alpha activity measuring 15-40 microvolts in amplitude which was symmetric and reactive to eye opening. Attenuation of posterior dominant rhythm was seen during transition to drowsiness. Stages 1 and 2 sleep were reviewed and were symmetric bilaterally. Hyperventilation could not be performed. Photic stimulation remained unremarkable. EKG revealed normal sinus rhythm. No focal, lateralizing, or epileptiform abnormalities were seen. No relevant clinical activity was noted. CONCLUSION: This EEG in awake, drowsy states, stage 1 and 2 sleep is within normal limits. MTDD
[2020-04-21 22:00] VITALS: BP 131/88
[2020-04-22] MEDS: SLF 3 ML SYR IV SCH ×3 (05:51→21:25)
[2020-04-22 06:00] VITALS: BP 153/75
[2020-04-22 07:28] LABS: HEMATOCRIT 32.3 % (36.0-47.0); HEMOGLOBIN 10.5 g/dl (12.0-15.5); MEAN CORPUSCULAR HEMOGLOBIN 30.3 pg (27.0-33.0); MEAN CORPUSCULAR HGB CONC 32.5 g/dl (32.0-36.5); MEAN CORPUSCULAR VOLUME 93.1 fl (80.0-96.0); RED BLOOD COUNT 3.47 10^6/uL (4.00-5.40); WHITE BLOOD COUNT 2.6 10^3/uL (4.0-10.0)
[2020-04-22 07:32] LABS: PLATELET COUNT, AUTOMATED 56 10^3/uL (150-450)
[2020-04-22] MEDS: CARVedilol 12.5 MG TAB PO SCH ×2 (08:40→21:24)
[2020-04-22] MEDS: LOSARTAN 50MG TABLET PO SCH (08:40)
[2020-04-22] MEDS: VITAMIN D 1,000 INTERNATIONAL UNITS TABLET PO SCH (08:41)
[2020-04-22] MEDS: OMEPRAZOLE 20 MG CAP PO SCH (08:41)
[2020-04-22] MEDS: DIVALPROEX SPRINKLE 125 MG CAP PO SCH ×2 (08:41→21:23)
[2020-04-22 14:00] VITALS: BP 129/82
--- NOTE | 2020-04-22 14:57 | IPNPDOC ---
Text Note Date of Service The patient was seen on 04/22/20. NOTE S Patient continues to be alert and oriented x3 today . She denied dysuria, N/V/D, constipation, fever, chills, cough, dizziness, headache chest pain palpitations and SOB. She slept well last night, has good appetite and has no complaint. Review of Systems CONSTITUTIONAL: Denies fever, unexpected weight change, chills. HEENT: Denies headaches, dizziness. CARDIOVASCULAR: Denies chest pain, palpitations, dyspnea on exertion. RESPIRATORY: Denies wheezing, dyspnea, cough or hemoptysis GASTROINTESTINAL: Denies nausea, vomiting, abdominal pain, diarrhea, constipation, melena, hematochezia GENITOURINARY: Denies dysuria, hematuria, urinary frequency, incontinence or retention. SKIN: Denies skin changes, rash and lesions. MUSCULOSKELETAL: Denies muscle or joint pain. Physical Examination VITAL SIGNS: See below GENERAL APPEARANCE: 80 y/o F sitting in chair in position of comfort, in no acute distress. Alert & oriented x3. HEENT Exam: Normocephalic and atraumatic, PERRL, conjunctiva & lids normal, without sclera icteric, mucous memb moist/pink, pharynx normal, nares patent. NECK: Supple without lymphadenopathy. LUNGS: Clear to auscultation bilaterally with full breath sounds without rales, wheezing, and crackles. CARDIOVASCULAR: Regular rate and rhythm, normal S1 & S2 without gallops, murmurs, rubs ABDOMEN: Soft, non-tender, non-distended with normal bowel sounds. No masses or ecchymosis. EXTREMITIES: 2+ radial and PT pulses bilaterally. No clubbing, cyanosis, edema. CHRIS stockings noted. SKIN: Normal turgor and temperature. No rash, lesion MUSCULOSKELETAL: Strength +5/5 in all extremities. NEUROLOGICAL: Moving all four extremities. Intact sensation in all extremities. Cranial nerves II-XII normal. Fatoumata Amor is a 80 y/o F with PMH of breast cancer (s/p bilateral mastectomy, refused letrozole in 08/2015 due to drug SE), HTN, hx of Sz (09/2019), Hx of subdural hematoma (s/p fall 02/2019), vit D deficiency and Hx of DVT who was admitted to hospital for fall with suspected loss of consciousness. P # Fall with suspected LOC - Patient talkative and with good mentation - Cont PT/OT- recommendation. - Strict I/O to monitor fluid intake, nursing order to encourage fluid intake. - EEG -pending - 08/05 BCx returned positive for gram positive cocci in cluster, repeat Bx x2 drawn yesterday and patient received 2 doses of vancomycin - Lab relayed organism is coag negative staph, likely contamination, discontinued vancomycin. #Suspected seizure due to a previous history of Sz: - Patient's reported patient has hx of Sz with workup at [place] - Requested to obtain old record, paperwork shows she was admitted for refra ctory status epilepticus. She needed to be intubated and was discharged on valproic acid. Patient fully compliant on valproic acid. Valproic acid levels were high. - Cont home meds - EEG pending # Metabolic encephalopathy - resolved. - Recheck BMP in am. # Possible UTI - Patient's UA positive for 1+ leukocyte esterase and positive WBC - Patient afebrile - UCx negative - Received 1 day of cefazolin and 2 days of IV ceftriaxone, then switched to vancomycin due to positive BCx (08/05). Received 2 dose of Vanc, now discontinued, BCx likely contamination, labs reported growing coag negative staph. - No Abx at this time. # Pancytopenia with elevated band neutrophil - 04/19 CBC diff with elevated bands of 24 and elevated atypical lymphocyte of 9 - Concerning for leukemia - Hx of suspected myelodysplastic syndrome (per 04/2019 oncology note) - CBC with diff tomorrow morning with LDH and peripheral smear. # Hypertension -Cont home medication # Hx of breast cancer - L breast cancer dx in 1990 s/p lumpectomy, radiation and tamoxifen - L breast cancer recurrence in 1994, s/p L mastectomy - R breast cancer s/p R mastectomy 07/2015, ER positive, [place] 1-2% positive, HER2 negative, started on letrozole 08/2015 but discontinued by patient due to side effect. - Cont to monitor # DVT prophylaxis - Cont CHRIS/SCD - No anticoagulation due to hx of subdural hematoma /2 fall in 04/2017. Disposition: Family agreeable to transition of care to acute/subacute rehab when patient is ready from a medical standpoint. Nurse noted patient ambulated to bathroom with minimal assistance using walker today, will touch base with PT tomorrow am for disposition recommendation. VS,Fishbone, I+O VS, Fishbone, I+O Laboratory Tests 04/22/20 06:53 Vital Signs Date Time Temp Pulse Resp B/P (MAP) Pulse Ox O2 Delivery O2 Flow Rate FiO2 04/22/20 08:40 148/76 04/22/20 08:40 73 04/22/20 06:00 99.1 20 93 Room Air I&O- Last 24 Hours up to 6 AM 04/22/20 06:00 Intake Total 840 ml Output Total 50 ml Balance 790 ml GME ATTESTATION GME ATTESTATION My faculty preceptor for this patient encounter was physically present during the encounter and was fully available. All aspects of the patient interview, examination, medical decision making process, and medical care plan development were reviewed and approved by the faculty preceptor. The faculty preceptor is aware and concurs with the plan as stated in the body of this note and will attest to such by his/her cosignature. ATTENDING NOTE Patient seen and examined independently. Agree with resident's note. Michelle Woods MD Apr 22, 2020 14:57 MURTAZA TRAN MD May 16, 2020 14:24
[2020-04-22] MEDS: ACETAMINOPHEN TAB 650MG DOSE (2X325MG) PO PRN (21:24)
[2020-04-22 22:00] VITALS: BP 142/89
[2020-04-23] VITALS (13 sets, daily range): BP systolic 70–150; BP diastolic 42–83
[2020-04-23] MEDS: SLF 3 ML SYR IV SCH ×3 (05:15→21:51)
[2020-04-23] MEDS: DIVALPROEX SPRINKLE 125 MG CAP PO SCH ×2 (09:07→21:00)
[2020-04-23] MEDS: OMEPRAZOLE 20 MG CAP PO SCH (09:07)
[2020-04-23] MEDS: VITAMIN D 1,000 INTERNATIONAL UNITS TABLET PO SCH (09:07)
[2020-04-23] MEDS: CARVedilol 12.5 MG TAB PO SCH ×2 (09:09→21:00)
[2020-04-23] MEDS: LOSARTAN 50MG TABLET PO SCH (09:09)
[2020-04-23 10:53] LABS: HEMATOCRIT 39.5 % (36.0-47.0); MEAN CORPUSCULAR HEMOGLOBIN 29.4 pg (27.0-33.0); MEAN CORPUSCULAR HGB CONC 31.9 g/dl (32.0-36.5); MEAN CORPUSCULAR VOLUME 92.3 fl (80.0-96.0); RED BLOOD COUNT 4.28 10^6/uL (4.00-5.40); WHITE BLOOD COUNT 2.1 10^3/uL (4.0-10.0)
[2020-04-23 11:27] LABS: ALBUMIN 2.1 GM/DL (3.2-5.2); ALT/SGPT 13 U/L (12-78); BLOOD UREA NITROGEN 25 MG/DL (7-18); CALCIUM LEVEL 8.7 MG/DL (8.8-10.2); CARBON DIOXIDE LEVEL 27 MEQ/L (21-32); CHLORIDE LEVEL 103 MEQ/L (98-107); CREATININE FOR GFR 0.76 MG/DL (0.55-1.30); GLOMERULAR FILTRATION RATE > 60.0 (>39); GLUCOSE, FASTING 87 MG/DL (70-100); POTASSIUM SERUM 4.2 MEQ/L (3.5-5.1); SODIUM LEVEL 138 MEQ/L (136-145); TOTAL PROTEIN 5.5 GM/DL (6.4-8.2)
[2020-04-23 11:54] LABS: HEMOGLOBIN 12.6 g/dl (12.0-15.5); PLATELET COUNT, AUTOMATED 49 10^3/uL (150-450)
[2020-04-23 12:00] LABS: ATYPICAL LYMPH 3 % (0-5); EOSINOPHILS 1 % (0-3); LYMPHOCYTES 6 % (16-44); MONOCYTES 5 % (0-5); NEUTROPHILS 73 % (28-66)
[2020-04-23 12:01] LABS: ANISOCYTOSIS 1+; PLATELET ESTIMATE MARKED DECREASE (NORMAL)
--- NOTE | 2020-04-23 18:14 | IPNPDOC ---
Text Note Date of Service The patient was seen on 04/23/20. NOTE S: Patient was lethargic today, somewhat confused. Denied any medical complaints, no acute overnight events reported. O: VITAL SIGNS: See below GENERAL: NAD, lying comfortably in bed, lethargic, elderly HEENT Exam: NC/AT, PERRL NECK: Supple without lymphadenopathy. LUNGS: Clear to auscultation bilaterally with full breath sounds without rales, wheezing, and crackles. CARDIOVASCULAR: Regular rate and rhythm, normal S1 & S2 without gallops, murmurs, rubs ABDOMEN: Soft, non-tender, non-distended with normal bowel sounds. No masses or ecchymosis. EXTREMITIES: 2+ radial and PT pulses bilaterally. No clubbing, cyanosis, edema. CHRIS stockings noted. SKIN: Normal turgor and temperature. No rash, lesion A: Brooke Amor is a 80 y/o F with PMHx of breast cancer (s/p bilateral mastectomy, refused letrozole in 08/2015 due to drug SE), HTN, hx of Sz (09/2019), Hx of subdural hematoma (s/p fall 02/2019), vit D deficiency and Hx of DVT who was admitted to hospital for fall with suspected loss of consciousness. Family also reports recent admission October-November at [facility] for AMS. P: #AMS - recent admission at [facility] for AMS secondary to refractory status epilepticus - EEG no acute pathology - no clear infectious etiology BCx negative x 4, UCx negative - CT head no acute pathology - will consider repeat CT head if no improvement, possible LP although she is th rombocytopenic, and possible neuro c/s for further input # Fall with suspected LOC - Cont PT/OT- recommendation. #Suspected seizure due to a previous history of Sz: - Patient's reported patient has hx of Sz with workup at [place] - Requested to obtain old record, paperwork shows she was admitted for refractory status epilepticus. She needed to be intubated and was discharged on valproic acid. Patient fully compliant on valproic acid. Valproic acid levels were high. - Cont home meds - EEG pending #elevated creatinine - IV fluids - monitor BMP # Metabolic encephalopathy # Possible UTI - Patient's UA positive for 1+ leukocyte esterase and positive WBC - Patient afebrile - UCx negative - Received 1 day of cefazolin and 2 days of IV ceftriaxone, then switched to vancomycin due to positive BCx (08/05). Received 2 dose of Vanc, now discontinued, BCx likely contamination, labs reported growing coag negative staph. - No Abx at this time. # Pancytopenia with elevated band neutrophil - 04/19 CBC diff with elevated bands of 24 and elevated atypical lymphocyte of 9 - Concerning for leukemia - Hx of suspected myelodysplastic syndrome (per 04/2019 oncology note) - continue to monitor, will d/w oncology # HTN -Cont home medication # Hx of breast cancer - L breast cancer dx in 1990 s/p lumpectomy, radiation and tamoxifen - L breast cancer recurrence in 1994, s/p L mastectomy - R breast cancer s/p R mastectomy 07/2015, ER positive, [place] 1-2% positive, HER2 negative, started on letrozole 08/2015 but discontinued by patient due to side effect. - Cont to monitor # DVT prophylaxis - Cont CHRIS/SCD - No anticoagulation due to hx of subdural hematoma 09/05 fall in 04/2017. Disposition: Pending further clinical evaluation; discussed at length with son and father Divya SADLER, I+O Divya SADLER I+O Laboratory Tests 04/23/20 10:05 Vital Signs Date Time Temp Pulse Resp B/P (MAP) Pulse Ox O2 Delivery O2 Flow Rate FiO2 04/23/20 09:09 152/86 04/23/20 09:09 98 04/23/20 06:00 98.4 18 94 Room Air I&O- Last 24 Hours up to 6 AM 04/23/20 06:00 Intake Total 120 ml Balance 120 ml MURTAZA TRAN MD Apr 23, 2020 18:14
[2020-04-23] MEDS: NS 500 ML IV ONE ×2 (21:06→21:19)
[2020-04-23 21:31] LABS: BASO % 0.7 % (0.0-1.0); HEMATOCRIT 32.9 % (36.0-47.0); HEMOGLOBIN 10.9 g/dl (12.0-15.5); LYMPH # 0.3 10^3/uL (1.5-5.0); LYMPH % 10.1 % (24.0-44.0); MEAN CORPUSCULAR HEMOGLOBIN 30.3 pg (27.0-33.0); MEAN CORPUSCULAR HGB CONC 33.1 g/dl (32.0-36.5); MEAN CORPUSCULAR VOLUME 91.4 fl (80.0-96.0); MONO # 0.3 10^3/uL (0.0-0.8); MONO % 8.4 % (0.0-5.0); NEUTROPHILS # 2.3 10^3/uL (1.5-8.5); NEUTROPHILS % 76.8 % (36.0-66.0)
[2020-04-23 21:35] LABS: PLATELET COUNT, AUTOMATED 47 10^3/uL (150-450)
[2020-04-23 22:27] LABS: ALBUMIN 1.6 GM/DL (3.2-5.2); BILIRUBIN,TOTAL 0.4 MG/DL (0.2-1.0); CALCIUM LEVEL 8.5 MG/DL (8.8-10.2); CREATININE FOR GFR 1.28 MG/DL (0.55-1.30); GLOMERULAR FILTRATION RATE 42.8 (>39); POTASSIUM SERUM 3.9 MEQ/L (3.5-5.1); TOTAL PROTEIN 5.4 GM/DL (6.4-8.2)
[2020-04-23] MEDS ORDERED: NS 500 ML IV ONE ×2 (22:45)
[2020-04-24] MEDS: NS 1,000 ML IV SCH ×3 (00:21→21:57)
[2020-04-24] MEDS: SLF 3 ML SYR IV SCH ×3 (00:22→21:52)
[2020-04-24 02:00] VITALS: BP 96/63
[2020-04-24 06:00] VITALS: BP 98/59
[2020-04-24 06:32] LABS: HEMATOCRIT 35.5 % (36.0-47.0); HEMOGLOBIN 10.7 g/dl (12.0-15.5); MEAN CORPUSCULAR HEMOGLOBIN 29.8 pg (27.0-33.0); MEAN CORPUSCULAR HGB CONC 30.1 g/dl (32.0-36.5); MEAN CORPUSCULAR VOLUME 98.9 fl (80.0-96.0); RED BLOOD COUNT 3.59 10^6/uL (4.00-5.40); WHITE BLOOD COUNT 3.4 10^3/uL (4.0-10.0)
[2020-04-24 06:35] LABS: PLATELET COUNT, AUTOMATED 50 10^3/uL (150-450)
[2020-04-24 07:15] LABS: ALBUMIN 1.5 GM/DL (3.2-5.2); BILIRUBIN,TOTAL 0.4 MG/DL (0.2-1.0); CALCIUM LEVEL 7.8 MG/DL (8.8-10.2); CREATININE FOR GFR 1.07 MG/DL (0.55-1.30); GLOMERULAR FILTRATION RATE 52.7 (>39); POTASSIUM SERUM 4.4 MEQ/L (3.5-5.1); TOTAL PROTEIN 4.4 GM/DL (6.4-8.2)
--- NOTE | 2020-04-24 07:30 | IPNPDOC ---
Subjective Date Seen The patient was seen on 04/24/20. Subjective Chief Complaint/HPI Pt was seen at bedside this am. No acute events overnight reported by patient or nursing. Mentation this a.m improved. AAOX3. Denies CP, SOB, abdominal discomfort, fever chills, n/v/d. Bp meds carvediolol and losartan held this am due to low bp. General: Denies: Chills, Night Sweats, Fatigue, Malaise, Normal Appetite Constitutional: Denies: Chills, Fever, Malaise, Weakness Eyes: Denies: Pain, Vision change Skin: Denies: Rash, Lesions Pulmonary: Denies: Dyspnea, Cough, Pleuritic Chest Pain Cardiovascular: Denies: Chest Pain, Palpitations, Orthopnea, Edema Gastrointestinal: Denies: Nausea, Vomiting, Abdominal Pain, Diarrhea, Constipation Genitourinary: Denies: Dysuria, Frequency, Incontinence Endocrine: Denies: Polydipsia, Polyphagia, Polyuria Neurological: Reports: Other Symptoms (AAOX3 ); Denies: Weakness, Numbness, Change in speech, Confusion Objective Physical Examination General Exam: Positive: Alert, No Acute Distress; Negative: Mild Distress Eye Exam: Positive: PERRLA, Sclera icteric ENT Exam: Positive: Atraumatic, Mucous membr. moist/pink Neck Exam: Positive: Supple, +2 carotid pulse wo bruit; Negative: JVD, thyromegaly, Lymphadenopathy Chest Exam: Positive: Clear to auscultation, Normal air movement; Negative: Rales, Rhonchi, Wheezing, Diminished Heart Exam: Positive: Rate Normal, Regular Rhythm, Normal S1, Normal S2; Negative: Gallops, Murmurs, Rubs Abdomen Exam: Positive: Normal bowel sounds, Soft; Negative: Tenderness, Hepatospenomegaly, Hernia Extremity Exam: Positive: Normal pulses, Tenderness, Other (bilateral tenderness on lower extremities but not new findings ); Negative: Clubbing, Cyanosis, Edema, Swelling Assessment /Plan Assessment This is a 80 y/o F with PMHx of breast cancer (s/p bilateral mastectomy, refused letrozole in 08/2015 due to drug SE), HTN, hx of Sz (09/2019), Hx of subdural hematoma (s/p fall 02/2019), vit D deficiency and Hx of DVT who was admitted to hospital for fall with suspected loss of consciousness. Family also reports recent admission October-November at [facility] for AMS. #AMS #Fall with suspected LOC #Hx of seizure #Hx of subdural hematoma #PHILIPPE #HTN #Hx of DVTs #Hx of breast cancer Plan/VTE VTE Prophylaxis Ordered?: Yes Plan - Recent admission at [facility] for AMS secondary to refractory status epilepticus and had a seizure workup at [facility] - Requested to obtain old record, paperwork shows she was admitted for refractory status epilepticus. She needed to be intubated and was discharged on valproic acid. - Continue depakote 500mg PO BID and continue monitoring valproic acid level - Fall with suspected seizure however, EEG r/o seizure activity; CT head no acute pathology s/p fall - will consider repeat CT head if no improvement, possible LP although she is thrombocytopenic, and possible neuro c/s for further input - Plt 50- no obvious sites of bleeding- will continue to monitor plt closely - Cont PT/OT for hx of falls - Cr 1.07, improving- continue IVF @80cc/h and will continue to closely monitor BMP - Continue carvedilol and losartan for BP control. BP today is 98/59 (MAP 72). - Hx of L breast cancer in 1990 s/p lumpectomy, radiation and tamoxifen. Recurrence in 1994, s/p L mastectomy. R breast cancer s/p R mastectomy 07/2015, ER positive, [place] 1-2% positive, HER2 negative- patient stopped meds due to side effects DVT ppx: TEDS/SCDs/ No anticoagulation due to hx of subdural hematoma 2/2 fall in 04/2017 GI ppx: None Fluids: IVF @80cc/h Diet: Pureed diet, advance as tolerated Code Status: Full Code Disposition: Pending subacute rehabilitation. Continue PT/OT VS, I&O, 24H, Fishbone Vital Signs/I&O Vital Signs Date Time Temp Pulse Resp B/P (MAP) Pulse Ox O2 Delivery O2 Flow Rate FiO2 04/24/20 06:00 98.1 67 20 98/59 (72) 95 Room Air 04/23/20 23:30 2.0 I&O- Last 24 Hours up to 6 AM 04/24/20 06:00 Intake Total 1180 ml Balance 1180 ml Laboratory Data 24H LABS Laboratory Tests 2 04/23/20 10:05: Immature Granulocyte % (Auto) , Neutrophils (%) (Auto) , Nucleated Red Blood Cells % (auto) 0.0, Neutrophils 73H, Band Neutrophils 12H, Lymphocytes (Manual) 6L, Monocytes (Manual) 5, Eosinophils (Manual) 1, Atypical Lymphocytes 3, Anisocytosis 1+, Platelet Estimate MARKED DECREASE, Immature Platelet Fraction 1.8, Anion Gap 8, Glomerular Filtration Rate > 60.0, Calcium Level 8.7L, Total Bilirubin 1.0, Aspartate Amino Transf (AST/SGOT) 38H, Alanine Aminotransferase (ALT/SGPT) 13, Alkaline Phosphatase 76, Total Protein 5.5L, Albumin 2.1L, Albumin/Globulin Ratio 0.6L 04/23/20 21:20: Immature Granulocyte % (Auto) 4.0H, Neutrophils (%) (Auto) 76.8H, Nucleated Red Blood Cells % (auto) 0.0, Anion Gap 5L, Glomerular Filtration Rate 42.8, Calcium Level 8.5L, Total Bilirubin 0.4#, Aspartate Amino Transf (AST/SGOT) 25, Alanine Aminotransferase (ALT/SGPT) 11L, Alkaline Phosphatase 61, Total Protein 5.4L, Albumin 1.6#L, Albumin/Globulin Ratio 0.4L, Lymphocytes (%) (Auto) 10.1L, Monocytes (%) (Auto) 8.4H, Eosinophils (%) (Auto) 0.0, Basophils (%) (Auto) 0.7, Neutrophils # (Auto) 2.3, Lymphocytes # (Auto) 0.3L, Monocytes # (Auto) 0.3, Eosinophils # (Auto) 0.0, Basophils # (Auto) 0.0 04/23/20 21:22: Lactic Acid Level 1.3 04/23/20 22:11: Bedside Glucose (Misc Panel) 124H 04/24/20 06:17: Neutrophils (%) (Auto) , Nucleated Red Blood Cells % (auto) 0.0, Anion Gap 8, Glomerular Filtration Rate 52.7, Calcium Level 7.8L, Total Bilirubin 0.4, Aspartate Amino Transf (AST/SGOT) 36, Alanine Aminotransferase (ALT/SGPT) 9L, Alkaline Phosphatase 52, Total Protein 4.4L, Albumin 1.5L, Albumin/Globulin Ratio 0.5L CBC/BMP Laboratory Tests 04/23/20 10:05 04/23/20 21:20 04/24/20 06:17 Microbiology Microbiology 04/23/20 Blood Culture, Received Pending 04/23/20 Blood Culture, Received Pending 04/19/20 Blood Culture - Preliminary, Resulted No Growth after 72 hours. All specime... 04/19/20 Blood Culture - Preliminary, Resulted No Growth after 72 hours. All specime... 04/17/20 Blood Culture - Final, Complete NO GROWTH AFTER 5 DAYS 04/17/20 Blood Culture - Final, Complete Staphylococcus Hominis Ssp Diana 04/17/20 Urine Culture - Final, Complete GME ATTESTATION GME ATTESTATION My faculty preceptor for this patient encounter was physically present during the encounter and was fully available. All aspects of the patient interview, examination, medical decision making process, and medical care plan development were reviewed and approved by the faculty preceptor. The faculty preceptor is aware and concurs with the plan as stated in the body of this note and will attest to such by his/her cosignature. ATTENDING NOTE Patient seen and examined independently. Agree with resident's note. Ila Cagle DO Apr 24, 2020 07:30 MURTAZA TRAN MD May 16, 2020 14:22
--- NOTE | 2020-04-24 08:02 | ECHO ---
DATE OF PROCEDURE: 04/20/2020 Age: Gender: Female Height: 160 cm Weight: 56 kg REFERRING PHYSICIAN: Dr. Polly Toscano INDICATION: Bacteremia. MEASUREMENTS: 2D Measurements: Intraventricular septum 0.68 cm Posterior wall 0.76 cm Left ventricle diastole 4.2 cm Aortic root 3.3 cm Left atrium 3.5 cm Left atrial volume index 18 cm Inferior vena cava 1.5 cm (more than 50% respiratory variation) Doppler Measurements: No aortic stenosis No aortic regurgitation Aortic valve velocity 121 cm/s LVOT velocity 112 cm/s Very mild mitral regurgitation Mitral E velocity 62.6 cm/s Mitral A velocity 92.1 cm/s Mitral deceleration time 203 msec Trace tricuspid regurgitation Estimated right ventricular systolic pressure 23-28 mmHg Estimated right atrial pressure 5-10 mmHg No pulmonic regurgitation Pulmonary artery acceleration time 140 msec MITRAL ANNULAR TISSUE DOPPLER E prime lateral 7.3 cm/s, E prime lateral 4.1 cm/s DESCRIPTION: Rhythm was sinus. Image quality was good. No pericardial effusion. This was a 2D, M-mode, color flow Doppler, and pulsed wave Doppler examination including mitral annular tissue Doppler. No pericardial effusion. CONCLUSIONS: 1. No vegetations seen. 2. Structurally and functionally normal appearing mitral valve. 3. Normal left ventricle internal dimensions and wall thickness. Normal regional LV wall motion and wall thickening. Normal LV systolic function. LVEF 65% by visual estimate. Grade 1 LV diastolic dysfunction (impaired relaxation filling pattern). 4. Otherwise normal appearing echocardiogram Doppler findings. MTDD
[2020-04-24 08:35] LABS: ANISOCYTOSIS 1+; HYPOCHROMASIA 1+; LYMPHOCYTES 30 % (16-44); NEUTROPHILS 60 % (28-66); PLATELET ESTIMATE MARKED DECREASE (NORMAL)
[2020-04-24 08:36] LABS: POIKILOCYTOSIS 1+
[2020-04-24] MEDS: LOSARTAN 50MG TABLET PO SCH (09:00)
[2020-04-24] MEDS: CARVedilol 12.5 MG TAB PO SCH ×2 (09:00→21:00)
[2020-04-24] MEDS: DIVALPROEX SPRINKLE 125 MG CAP PO SCH ×2 (10:00→21:57)
[2020-04-24] MEDS: VITAMIN D 1,000 INTERNATIONAL UNITS TABLET PO SCH (10:04)
[2020-04-24] MEDS: OMEPRAZOLE 20 MG CAP PO SCH (10:04)
[2020-04-24 14:15] VITALS: BP 95/62
[2020-04-24 22:00] VITALS: BP 121/77
[2020-04-25 08:39] LABS: BASO % 0.4 % (0.0-1.0); EOS % 0.4 % (0.0-3.0); HEMATOCRIT 29.8 % (36.0-47.0); HEMOGLOBIN 9.7 g/dl (12.0-15.5); LYMPH # 0.8 10^3/uL (1.5-5.0); LYMPH % 30.4 % (24.0-44.0); MEAN CORPUSCULAR HEMOGLOBIN 30.6 pg (27.0-33.0); MEAN CORPUSCULAR HGB CONC 32.6 g/dl (32.0-36.5); MONO # 0.2 10^3/uL (0.0-0.8); MONO % 9.6 % (0.0-5.0); NEUTROPHILS # 1.4 10^3/uL (1.5-8.5); NEUTROPHILS % 57.2 % (36.0-66.0); RED BLOOD COUNT 3.17 10^6/uL (4.00-5.40); WHITE BLOOD COUNT 2.5 10^3/uL (4.0-10.0)
--- NOTE | 2020-04-25 08:42 | IPNPDOC ---
Subjective Date Seen The patient was seen on 04/25/20. Subjective Chief Complaint/HPI Pt was seen at bedside resting comfortably in bed this a.m. No acute events overnight. Pt is AAOx3. Bp this am is 121/77 and improved from yesterday. She denies CP, SOB, abdominal pain, fever, N/V/D. REVIEW OF SYSTEMS: Constitutional: Denies weight loss, change in appetite, or recent trauma Eyes: No visual changes or eye pain Ears, Nose, Throat: Denies nose bleeds, or difficulty swallowing Cardiovascular: Denies chest pain, sweating, or orthopnea Respiratory: Denies wheezing, or shortness of breath, admits to chronic non- productive cough GI: Denies nausea, vomiting, abdominal pain, diarrhea or constipation : Denies pain with urination or frequency Musculoskeletal: Admits to bilateral joint pain in ankles, knees, hips, and shou lders. Admits to generalized weakness. Neuro / Psych: Denies muscle weakness or sensory loss Skin: No skin rashes noted PHYSICAL EXAMINATION: VITAL SIGNS: Temperature 97.1, pulse 61, respiratory rate 14, blood [id number] 94% RA GENERAL APPEARANCE: Elderly female sitting up in a chair, calm, cooperative, NAD HEENT: NC/AT EOMI, PERRL, MMM CARDIOVASCULAR: 3/6 CM in RUSB, no rubs/gallops, RRR, 1+ peripheral edema bilaterally LUNGS: Clear to auscultation bilaterally, no adventitious breath sounds, no rh onci, rales ABDOMEN: soft, non-tender to palpation all 4 quadrants, +BS, no obvious organomegaly MUSCULOSKELETAL: moves all extremities well EXTREMITIES: no clubbing/cyanosis NEUROLOGICAL: No obvious focal deficits, AAOx3 PSYCHIATRIC: Awake, alert and oriented only to time and person, not to place. Very talkative, normal mood/affect SKIN: Warm, well-perfused, no obvious rashes Labs: see below Imagin/14- Carotid U/S :Given limitation of motion artifact no hemodynamically significant stenosis, or occlusion is seen 04/16 CT cervical w/o ctx: No acute findings 04/16 CT head w/o ctx: No acute intracranial abnormalities Objective Physical Examination General Exam: Positive: Alert, No Acute Distress; Negative: Mild Distress Eye Exam: Positive: PERRLA, Sclera icteric ENT Exam: Positive: Atraumatic, Mucous membr. moist/pink Neck Exam: Positive: Supple, +2 carotid pulse wo bruit; Negative: JVD, thyromegaly, Lymphadenopathy Chest Exam: Positive: Clear to auscultation, Normal air movement; Negative: Rales, Rhonchi, Wheezing, Diminished Heart Exam: Positive: Rate Normal, Regular Rhythm, Normal S1, Normal S2; Negative: Gallops, Murmurs, Rubs Abdomen Exam: Positive: Normal bowel sounds, Soft; Negative: Tenderness, Hepatospenomegaly, Hernia Extremity Exam: Positive: Normal pulses, Tenderness, Other (bilateral tenderness on lower extremities but not new findings ); Negative: Clubbing, Cyanosis, Edema, Swelling Assessment /Plan Assessment This is a 80 y/o F with PMHx of breast cancer (s/p bilateral mastectomy, refused letrozole in 08/2015 due to drug SE), HTN, hx of Sz (09/2019), Hx of subdural hematoma (s/p fall 02/2019), vit D deficiency and Hx of DVT who was admitted to hospital for fall with suspected loss of consciousness. Family also reports recent admission October-November at [facility] for AMS Plan/VTE VTE Prophylaxis Ordered?: Yes Plan - AMS: Recent admission at [facility] for AMS secondary to refractory status epilepticus and had a seizure workup at [facility] - Requested to obtain old record, paperwork shows she was admitted for refractory status epilepticus. She needed to be intubated and was discharged on valproic acid. - Continue depakote 500mg PO BID and continue monitoring valproic acid level - Fall with suspected seizure: EEG r/o seizure activity; CT head no acute pathology s/p fall - will consider repeat CT head if no improvement, possible LP although she is thrombocytopenic, and possible neuro c/s for further input - Plt - no obvious sites of bleeding- will continue to monitor plt closely - Cont PT/OT for hx of falls - Cr - continue IVF @80cc/h and will continue to closely monitor BMP - Continue carvedilol and losartan for BP control. BP today is 98/59 (MAP 72). - Hx of L breast cancer in 1990 s/p lumpectomy, radiation and tamoxifen. Recurrence in 1994, s/p L mastectomy. R breast cancer s/p R mastectomy 07/2015, ER positive, [place] 1-2% positive, HER2 negative- patient stopped meds due to side effects DVT ppx: TEDS/SCDs/ No anticoagulation due to hx of subdural hematoma 2/ fall in 04/2017 GI ppx: None Fluids: IVF @80cc/h Diet: 2g Na+ diet Code Status: Full Code Disposition: Pending subacute rehabilitation. Continue PT/OT Disposition Pending subacute rehab placement. Continue PT/OT VS, I&O, 24H, Fishbone Vital Signs/I&O Vital Signs Date Time Temp Pulse Resp B/P (MAP) Pulse Ox O2 Delivery O2 Flow Rate FiO2 04/24/20 22:00 97.1 61 14 121/77 (92) 94 Room Air 04/23/20 23:30 2.0 I&O- Last 24 Hours up to 6 AM 04/25/20 05:59 Intake Total 1400 ml Balance 1400 ml Laboratory Data 24H LABS Laboratory Tests 2 04/25/20 08:17: CBC/BMP Microbiology Microbiology 04/23/20 Blood Culture - Preliminary, Resulted No growth after 24 hours . All specim... 04/23/20 Blood Culture - Preliminary, Resulted No growth after 24 hours . All specim... 04/19/20 Blood Culture - Final, Complete NO GROWTH AFTER 5 DAYS 04/19/20 Blood Culture - Final, Complete NO GROWTH AFTER 5 DAYS 04/17/20 Blood Culture - Final, Complete NO GROWTH AFTER 5 DAYS 04/17/20 Blood Culture - Final, Complete Staphylococcus Hominis Ssp Diana 04/17/20 Urine Culture - Final, Complete GME ATTESTATION GME ATTESTATION My faculty preceptor for this patient encounter was physically present during the encounter and was fully available. All aspects of the patient interview, examination, medical decision making process, and medical care plan development were reviewed and approved by the faculty preceptor. The faculty preceptor is aware and concurs with the plan as stated in the body of this note and will attest to such by his/her cosignature. ATTENDING NOTE I, Miguel Diana, have independently examined this patient and performed my own physical exam, as well as reviewed the documentation and edited where necessary. I have discussed in detail with the resident / student the findings and plan of treatment as documented by the resident / student and edited their note. I agree with their findings and treatment plan and have edited their documentation. I will continue to follow the patient during this hospital stay. Ila Cagle 22, 2020 08:42 MIGUEL DIANA MD May 28, 2020 12:21
[2020-04-25 08:56] LABS: BLOOD UREA NITROGEN 30 MG/DL (7-18); CALCIUM LEVEL 8.2 MG/DL (8.8-10.2); CARBON DIOXIDE LEVEL 26 MEQ/L (21-32); CHLORIDE LEVEL 108 MEQ/L (98-107); CREATININE FOR GFR 0.76 MG/DL (0.55-1.30); GLOMERULAR FILTRATION RATE > 60.0 (>39); GLUCOSE, FASTING 90 MG/DL (70-100); MAGNESIUM LEVEL 1.7 MG/DL (1.8-2.4); POTASSIUM SERUM 3.8 MEQ/L (3.5-5.1); SODIUM LEVEL 140 MEQ/L (136-145)
[2020-04-25 09:03] LABS: PLATELET COUNT, AUTOMATED 72 10^3/uL (150-450)
[2020-04-25] MEDS: VITAMIN D 1,000 INTERNATIONAL UNITS TABLET PO SCH (10:05)
[2020-04-25] MEDS: ACETAMINOPHEN TAB 650MG DOSE (2X325MG) PO PRN (10:05)
[2020-04-25] MEDS: OMEPRAZOLE 20 MG CAP PO SCH (10:05)
[2020-04-25] MEDS: DIVALPROEX SPRINKLE 125 MG CAP PO SCH (10:05)
[2020-04-25 10:06] VITALS: BP 120/18
[2020-04-25] MEDS: CARVedilol 12.5 MG TAB PO SCH (10:06)
[2020-04-25] MEDS: LOSARTAN 50MG TABLET PO SCH (10:06)
--- NOTE | 2020-04-25 11:54 | DS.PDOC ---
Discharge Summary General Date of Admission Apr 17, 2020 at 03:36 Date of Discharge 04/25/2020 Attending Physician: MIGUEL CAMPOS MD Specialist/Consultants Involve Dr. Miranda Cardio, Dr. Gandara neurology Discharge Summary PROCEDURES PERFORMED DURING STAY: [None]. ADMITTING DIAGNOSES: 1. Fall DISCHARGE DIAGNOSES: 1. Fall COMPLICATIONS/CHIEF COMPLAINT: Fall, UTI HOSPITAL COURSE: Patient is a 80 y/o F with PMH of breast cancer, HTN, hx of DVT, Hx of subdural hematoma, vit D deficiency, hx of falls who presented to ER with increased weakness and fall . Patient was not a good historian. There was no record of patient hitting head and theres no record of whether or not she lost consciousness or not. No documented bowel or bladder loss, seizure activity, tremoring, slurring speech, post-ictal phase, facial drooping, biting of tongue, drooling. It is unknown through records if the patient actually lost consciousness or not. Pt was unable to ambulate due to weakness per EMS. The patient does use walker occasionally at home. Patient denies fevers, chills, nausea, vomiting, diarrhea, recent illness, SOB, chest pain, lightheadedness or dizziness prior to fall. CT head WNL and EEG workup did not witness any seizure activities. During hospitalization, patients mentation improved and shes AAOx3. Shes doing well with PT/OT for strengthening. Bp has also normalized bp today 122/77. Of note, patient had pancytopenia but has a hx of myelodysplastic syndrome. Patient is instructed to follow outpt with manager [employer]. She was also instructed to follow with neurologist and pcp within 7 days of discharge from the hospital. She was told that if her symptoms worsen that she should go to the nearest ER or come back to [facility] ER. This concludes the care for Ms. Shipley. DISCHARGE MEDICATIONS: Please see below. ALLERGIES: Please see below. PHYSICAL EXAMINATION ON DISCHARGE: General Exam: Positive: Alert, No Acute Distress; Negative: Mild Distress Eye Exam: Positive: PERRLA, Sclera icteric ENT Exam: Positive: Atraumatic, Mucous membr. moist/pink Neck Exam: Positive: Supple, +2 carotid pulse wo bruit; Negative: JVD, thyromegaly, Lymphadenopathy Chest Exam: Positive: Clear to auscultation, Normal air movement; Negative: Rales, Rhonchi, Wheezing, Diminished Heart Exam: Positive: Rate Normal, Regular Rhythm, Normal S1, Normal S2; Negative: Gallops, Murmurs, Rubs Abdomen Exam: Positive: Normal bowel sounds, Soft; Negative: Tenderness, Hepatospenomegaly, Hernia Extremity Exam: Positive: Normal pulses, Tenderness, Other (bilateral ten derness on lower extremities but not new findings ); Negative: Clubbing, Cyanosis, Edema, Swelling LABORATORY DATA: Please see below. IMAGING: CT cervical spine and CT head WNL. Vascular U/S - Limited study secondary to motion artifact. Given limitation of motion artifact no hemodynamically significant stenosis, or occlusion is seen. Further evaluation with MRA or CTA examination is recommended. PROGNOSIS: at baseline ACTIVITY: [As tolerated]. DIET: 2g sodium DISCHARGE PLAN: Follow up with pcp manager [employer] and neurologist within 7 days of discharge from hospital. subacute rehab to [facility] keep home. Return to the ER if you experience any problems DISCHARGE INSTRUCTIONS: Follow up with pcp manager [employer] and neurologist within 7 days of discharge from hospital. if condition worsens, go back to nearest ER. TIME SPENT ON DISCHARGE: 35 minutes. Vital Signs/I&Os Vital Signs Date Time Temp Pulse Resp B/P (MAP) Pulse Ox O2 Delivery O2 Flow Rate FiO2 04/25/20 10:06 61 120/18 04/24/20 22:00 97.1 14 94 Room Air 04/23/20 23:30 2.0 I&O- Last 24 Hours up to 6 AM 04/25/20 06:00 Intake Total 2300 ml Balance 2300 ml Laboratory Data Labs 24H Laboratory Tests 2 04/25/20 08:17: Immature Granulocyte % (Auto) 2.0, Neutrophils (%) (Auto) 57.2, Lymphocytes (%) (Auto) 30.4, Monocytes (%) (Auto) 9.6H, Eosinophils (%) (Auto) 0.4, Basophils (%) (Auto) 0.4, Neutrophils # (Auto) 1.4L, Lymphocytes # (Auto) 0.8L, Monocytes # (Auto) 0.2, Eosinophils # (Auto) 0.0, Basophils # (Auto) 0.0, Nucleated Red Blood Cells % (auto) 0.0, Immature Platelet Fraction 2.8, Anion Gap 6L, Glomerular Filtration Rate > 60.0, Calcium Level 8.2L, Magnesium Level 1.7L CBC/BMP Laboratory Tests 04/25/20 08:17 Microbiology Microbiology 04/23/20 Blood Culture - Preliminary, Resulted No growth after 24 hours . All specim... 04/23/20 Blood Culture - Preliminary, Resulted No growth after 24 hours . All specim... 04/19/20 Blood Culture - Final, Complete NO GROWTH AFTER 5 DAYS 04/19/20 Blood Culture - Final, Complete NO GROWTH AFTER 5 DAYS 04/17/20 Blood Culture - Final, Complete NO GROWTH AFTER 5 DAYS 04/17/20 Blood Culture - Final, Complete Staphylococcus Hominis Ssp Diana 04/17/20 Urine Culture - Final, Complete Discharge Medications Scheduled Carvedilol (Coreg) 12.5 Mg Tablet, 12.5 MG PO BID, (Reported) Cholecalciferol (Vitamin D3) (Vitamin D3) 1,000 Unit Tablet, 1,000 UNITS PO DAILY, (Reported) Losartan Potassium (Losartan Potassium) 50 Mg Tab, 50 MG PO DAILY, (Reported) Melatonin (Melatonin) 3 Mg Tab.rapdis, 3 MG PO QPM for sleep, (Reported) Omeprazole (Omeprazole) 40 Mg Cap, 40 MG PO DAILY, (Reported) Psyllium Husk (with Sugar) (Metamucil Powder) 575 Gm Powder, 1 PKT PO DAILY, ( Reported) Valproic Acid (Valproic Acid) 250 Mg Capsule, 500 MG PO BID, (Reported) Scheduled PRN Acetaminophen (Acetaminophen) 325 Mg Tablet, 650 MG PO Q4-6HP PRN for pain or fever, (Reported) Sennosides (Senna) 8.6 Mg Tablet, 17.2 MG PO QHS PRN for CONSTIPATION, (Reported) Allergies Coded Allergies: Sulfa (Sulfonamide Antibiotics) (Verified Allergy, Mild, rash, 12/31/19) alendronate sodium (Verified Allergy, Mild, rash/headache, 12/31/19) cefadroxil (Verified Allergy, Mild, 12/31/19) NOTE: PATIENT HAS HAS MULTILE 1st GEN CEPHALOSPORINS AT [facility] ORALLY AND IV chocolate flavor (Verified Allergy, Mild, headache and rash, 12/31/19) ciprofloxacin (Verified Allergy, Mild, rash, 12/31/19) hydrocodone (Verified Allergy, Mild, 12/31/19) terazosin (Verified Allergy, Mild, rash, 12/31/19) aspirin (Verified Allergy, Unknown, 12/21/19) latex (Verified Adverse Reaction, Intermediate, mouth sores, 12/31/19) lisinopril (Verified Adverse Reaction, Mild, aches, 12/21/19) amoxicillin (Verified Adverse Reaction, Unknown, nausea/vomiting, 12/21/19) clavulanic acid (Verified Adverse Reaction, Unknown, nausea/vomiting, 12/21/19) GME ATTESTATION GME ATTESTATION My faculty preceptor for this patient encounter was physically present during the encounter and was fully available. All aspects of the patient interview, examination, medical decision making process, and medical care plan development were reviewed and approved by the faculty preceptor. The faculty preceptor is aware and concurs with the plan as stated in the body of this note and will attest to such by his/her cosignature. ATTENDING NOTE I, Miguel Campos, have independently examined this patient and performed my own physical exam, as well as reviewed the documentation and edited where necessary. I have discussed in detail with the resident / student the findings and plan of treatment as documented by the resident / student and edited their note. I agree with their findings and treatment plan and have edited their documentation. I will continue to follow the patient during this hospital stay. Time spend on discharge 35 minutes Ila Cagle DO Apr 25, 2020 11:54 MIGUEL CAMPOS MD Apr 25, 2020 15:44
[2020-05-04] MEDS ORDERED: MULTCAP PO (11:12)
[2020-05-04] MEDS ORDERED: DEPA1CAP PO (11:13)
[2020-05-04] MEDS ORDERED: COLA1TAB PO (11:14)
== END 2020-04-25 13:50 | DRG 71 ==
LOC: M ED 22:54 → M ED INP 04-17 03:36 → ENRESERV 04-17 04:29 → M PCU 04-17 06:10 → M MS5PR 04-18 23:15
PROVIDERS: ADMIT Internal Medicine; ATTEND Internal Medicine
DX: G93.41 Metabolic encephalopathy (principal); D61.818 Other pancytopenia; N39.0 Urinary tract infection, site not specified; I10 Essential (primary) hypertension; R55 Syncope and collapse; D46.9 Myelodysplastic syndrome, unspecified; Z85.3 Personal history of malignant neoplasm of breast; Z86.718 Personal history of other venous thrombosis and embolism; E55.9 Vitamin D deficiency, unspecified; R29.6 Repeated falls; Z79.899 Other long term (current) drug therapy; Z88.2 Allergy status to sulfonamides; Z88.8 Allergy status to other drugs, medicaments and biological substances; Z88.5 Allergy status to narcotic agent; Z91.040 Latex allergy status; Z88.6 Allergy status to analgesic agent; Z88.1 Allergy status to other antibiotic agents; Z90.13 Acquired absence of bilateral breasts and nipples; G40.909 Epilepsy, unspecified, not intractable, without status epilepticus; E87.6 Hypokalemia; E83.42 Hypomagnesemia

== ENCOUNTER → 2020-04-27 | Outpatient (REF) ==
[~2020-04-27] MED LIST changes: +COLA1TAB PO; +D31000TA2 PO; +DEPA1CAP PO; +MULTCAP PO; +VITA400T15 PO; +med rec comment
[2020-04-27 09:48] LABS: VITAMIN B12 LEVEL 829 PG/ML (247-911)
== END ==
LOC: SKLAB3 07:00
DX: F03.90 Unspecified dementia, unspecified severity, without behavioral disturbance, psychotic disturbance, mood disturbance, and anxiety (principal)

== ENCOUNTER → 2020-05-31 | Outpatient (REF) | payer MEDICARE, OTHER ==
[2020-05-31 07:13] LABS: BASO % 0.7 % (0.0-1.0); EOS # 0.1 10^3/uL (0.0-0.5); EOS % 2.5 % (0.0-3.0); HEMATOCRIT 28.8 % (36.0-47.0); HEMOGLOBIN 8.8 g/dl (12.0-15.5); LYMPH # 1.5 10^3/uL (1.5-5.0); LYMPH % 52.7 % (24.0-44.0); MEAN CORPUSCULAR HEMOGLOBIN 29.8 pg (27.0-33.0); MEAN CORPUSCULAR HGB CONC 30.6 g/dl (32.0-36.5); MEAN CORPUSCULAR VOLUME 97.6 fl (80.0-96.0); MONO # 0.2 10^3/uL (0.0-0.8); MONO % 6.4 % (0.0-5.0); PLATELET COUNT, AUTOMATED 115 10^3/uL (150-450); RED BLOOD COUNT 2.95 10^6/uL (4.00-5.40); WHITE BLOOD COUNT 2.8 10^3/uL (4.0-10.0)
== END ==
LOC: SKLAB3 07:00
DX: G40.909 Epilepsy, unspecified, not intractable, without status epilepticus (principal)

== ENCOUNTER → 2020-06-06 | Outpatient (REF) | payer MEDICARE, OTHER ==
[2020-06-06 09:33] LABS: FREE T4 1.11 NG/DL (0.76-1.46); THYROID STIMULATING HORMONE 4.19 uIU/ML (0.358-3.740)
== END ==
LOC: SKLAB3 07:00
DX: E03.9 Hypothyroidism, unspecified (principal)

== ENCOUNTER → 2020-06-15 | Outpatient (REF) | LOC: SKLAB3 11:26 | DX: Z20.828 Contact with and (suspected) exposure to other viral communicable diseases (principal) ==

== ENCOUNTER → 2020-06-21 | Outpatient (REF) | payer MEDICARE, OTHER ==
[~2020-06-21] MED LIST changes: +MULT-90 PO
== END ==
LOC: SKLAB3 06-20 13:48 → EDSTATUS 07-13 14:24
PROVIDERS: ATTEND Internal Medicine
DX: Z20.828 Contact with and (suspected) exposure to other viral communicable diseases (principal)

== ENCOUNTER → 2020-06-27 | Outpatient (REF) | payer MEDICARE, OTHER ==
[2020-06-27 09:34] LABS: BASO % 0.3 % (0.0-1.0); EOS # 0.1 10^3/uL (0.0-0.5); HEMATOCRIT 34.8 % (36.0-47.0); HEMOGLOBIN 10.8 g/dl (12.0-15.5); LYMPH # 1.4 10^3/uL (1.5-5.0); LYMPH % 46.6 % (24.0-44.0); MEAN CORPUSCULAR HEMOGLOBIN 30.8 pg (27.0-33.0); MEAN CORPUSCULAR VOLUME 99.1 fl (80.0-96.0); MONO # 0.2 10^3/uL (0.0-0.8); MONO % 6.8 % (0.0-5.0); NEUTROPHILS # 1.3 10^3/uL (1.5-8.5); NEUTROPHILS % 43.6 % (36.0-66.0); PLATELET COUNT, AUTOMATED 129 10^3/uL (150-450); RED BLOOD COUNT 3.51 10^6/uL (4.00-5.40)
[2020-06-27 10:02] LABS: TOTAL PROTEIN 5.6 GM/DL (6.4-8.2)
[2020-06-27 10:05] LABS: ALBUMIN 2.4 GM/DL (3.2-5.2); BILIRUBIN,DIRECT 0.1 MG/DL (0.0-0.2); BILIRUBIN,TOTAL 0.3 MG/DL (0.2-1.0); TOTAL PROTEIN 5.7 GM/DL (6.4-8.2)
[2020-06-30 14:11] LABS: ALBUMIN 2.84 GM/DL (3.29-5.55); ALBUMIN % 50.8 % (55.8-66.1); ALPHA-1-GLOBULIN % 5.1 % (2.9-4.9); ALPHA-1-GLOBULINS 0.29 GM/DL (0.17-0.41); ALPHA-2-GLOBULINS 0.55 GM/DL (0.42-0.99); ALPHA-2-GLOBULINS % 9.8 % (7.1-11.8); BETA-1-GLOBULINS 0.38 GM/DL (0.28-0.60); BETA-1-GLOBULINS % 6.7 % (4.7-7.2); BETA-2-GLOBULINS 0.38 GM/DL (0.19-0.55); BETA-2-GLOBULINS % 6.7 % (3.2-6.5); GAMMA GLOBULIN % 20.9 % (11.1-18.8); GAMMA GLOBULINS 1.17 GM/DL (0.65-1.58)
== END ==
LOC: SKLAB3 07:00
DX: D69.6 Thrombocytopenia, unspecified (principal); D64.9 Anemia, unspecified; G40.909 Epilepsy, unspecified, not intractable, without status epilepticus; Z79.899 Other long term (current) drug therapy

== ENCOUNTER → 2020-06-28 | Outpatient (REF) | payer MEDICARE, OTHER | LOC: SKLAB3 08:00 | PROVIDERS: ATTEND Internal Medicine | DX: Z20.828 Contact with and (suspected) exposure to other viral communicable diseases (principal) ==

== ENCOUNTER → 2020-07-05 | Outpatient (REF) | payer MEDICARE, OTHER | LOC: SKLAB3 08:00 | PROVIDERS: ATTEND Internal Medicine | DX: Z20.828 Contact with and (suspected) exposure to other viral communicable diseases (principal) ==

== ENCOUNTER → 2020-07-11 | Outpatient (REF) | payer MEDICARE, OTHER ==
[~2020-07-11] MED LIST changes: -MULT-90 PO
[2020-07-11 08:44] LABS: HEMATOCRIT 35.3 % (36.0-47.0); HEMOGLOBIN 10.9 g/dl (12.0-15.5); MEAN CORPUSCULAR HEMOGLOBIN 30.6 pg (27.0-33.0); MEAN CORPUSCULAR HGB CONC 30.9 g/dl (32.0-36.5); MEAN CORPUSCULAR VOLUME 99.2 fl (80.0-96.0); PLATELET COUNT, AUTOMATED 127 10^3/uL (150-450); RED BLOOD COUNT 3.56 10^6/uL (4.00-5.40); WHITE BLOOD COUNT 2.7 10^3/uL (4.0-10.0)
[2020-07-11 09:23] LABS: ALBUMIN 2.4 GM/DL (3.2-5.2); ALT/SGPT 12 U/L (12-78); BILIRUBIN,TOTAL 0.3 MG/DL (0.2-1.0); BLOOD UREA NITROGEN 31 MG/DL (7-18); CALCIUM LEVEL 8.9 MG/DL (8.8-10.2); CARBON DIOXIDE LEVEL 29 MEQ/L (21-32); CHLORIDE LEVEL 107 MEQ/L (98-107); CREATININE FOR GFR 0.88 MG/DL (0.55-1.30); GLOMERULAR FILTRATION RATE > 60.0 (>39); GLUCOSE, FASTING 102 MG/DL (70-100); NT-PRO BNP 2400 PG/ML (<450); POTASSIUM SERUM 3.6 MEQ/L (3.5-5.1); SODIUM LEVEL 142 MEQ/L (136-145); TOTAL PROTEIN 5.7 GM/DL (6.4-8.2)
[2020-07-11 17:23] LABS: FREE T4 1.05 NG/DL (0.76-1.46)
== END ==
LOC: SKLAB3 14:34
DX: R60.9 Edema, unspecified (principal)

== ENCOUNTER → 2020-07-12 | Outpatient (REF) | payer MEDICARE, OTHER | LOC: SKLAB3 07:10 | DX: Z20.828 Contact with and (suspected) exposure to other viral communicable diseases (principal) ==

== ENCOUNTER → 2020-07-18 | Outpatient (REF) | payer MEDICARE, OTHER ==
[2020-07-18 10:35] LABS: BLOOD UREA NITROGEN 24 MG/DL (7-18); CALCIUM LEVEL 8.7 MG/DL (8.8-10.2); CARBON DIOXIDE LEVEL 30 MEQ/L (21-32); CHLORIDE LEVEL 106 MEQ/L (98-107); CREATININE FOR GFR 0.94 MG/DL (0.55-1.30); GLOMERULAR FILTRATION RATE > 60.0 (>39); GLUCOSE, FASTING 86 MG/DL (70-100); NT-PRO BNP 1719 PG/ML (<450); POTASSIUM SERUM 3.6 MEQ/L (3.5-5.1); SODIUM LEVEL 142 MEQ/L (136-145)
== END ==
LOC: SKLAB3 10:05
DX: I50.9 Heart failure, unspecified (principal)

== ENCOUNTER → 2020-07-19 | Outpatient (REF) | payer MEDICARE, OTHER ==
[~2020-07-19] MED LIST changes: +MULT-90 PO
== END ==
LOC: SKLAB3 10:20
DX: Z20.828 Contact with and (suspected) exposure to other viral communicable diseases (principal)

== ENCOUNTER → 2020-07-25 | Outpatient (REF) | payer MEDICARE, OTHER ==
[2020-07-25 11:28] LABS: BASO % 0.4 % (0.0-1.0); EOS # 0.1 10^3/uL (0.0-0.5); EOS % 3.2 % (0.0-3.0); HEMATOCRIT 36.1 % (36.0-47.0); HEMOGLOBIN 11.2 g/dl (12.0-15.5); LYMPH # 1.4 10^3/uL (1.5-5.0); LYMPH % 48.9 % (24.0-44.0); MEAN CORPUSCULAR HEMOGLOBIN 31.3 pg (27.0-33.0); MEAN CORPUSCULAR VOLUME 100.8 fl (80.0-96.0); MONO # 0.2 10^3/uL (0.0-0.8); MONO % 8.3 % (0.0-5.0); NEUTROPHILS # 1.1 10^3/uL (1.5-8.5); NEUTROPHILS % 38.1 % (36.0-66.0); PLATELET COUNT, AUTOMATED 110 10^3/uL (150-450); RED BLOOD COUNT 3.58 10^6/uL (4.00-5.40); WHITE BLOOD COUNT 2.8 10^3/uL (4.0-10.0)
[2020-07-25 12:06] LABS: BLOOD UREA NITROGEN 37 MG/DL (7-18); CALCIUM LEVEL 8.9 MG/DL (8.8-10.2); CARBON DIOXIDE LEVEL 33 MEQ/L (21-32); CHLORIDE LEVEL 103 MEQ/L (98-107); GLOMERULAR FILTRATION RATE > 60.0 (>39); GLUCOSE, FASTING 60 MG/DL (70-100); POTASSIUM SERUM 3.1 MEQ/L (3.5-5.1); SODIUM LEVEL 140 MEQ/L (136-145)
== END ==
LOC: SKLAB3 13:28
DX: D64.9 Anemia, unspecified (principal); R60.9 Edema, unspecified

== ENCOUNTER → 2020-07-26 | Outpatient (REF) | payer MEDICARE, OTHER | LOC: SKLAB3 07:00 | DX: Z20.828 Contact with and (suspected) exposure to other viral communicable diseases (principal) ==

== ENCOUNTER → 2020-08-01 | Outpatient (REF) | payer MEDICARE, OTHER | LOC: SKLAB3 12:56 | DX: Z20.828 Contact with and (suspected) exposure to other viral communicable diseases (principal) ==

== ENCOUNTER → 2020-08-02 | Outpatient (REF) | payer MEDICARE, OTHER | LOC: SKLAB3 07:12 | DX: Z20.828 Contact with and (suspected) exposure to other viral communicable diseases (principal) ==

== ENCOUNTER → 2020-08-09 | Outpatient (REF) | payer MEDICARE, OTHER | LOC: SKLAB3 09:55 | PROVIDERS: ATTEND Internal Medicine | DX: Z11.52 Encounter for screening for COVID-19 (principal) ==

== ENCOUNTER → 2020-08-16 | Outpatient (REF) | payer MEDICARE, OTHER | LOC: SKLAB3 07:00 | PROVIDERS: ATTEND Internal Medicine | DX: Z11.52 Encounter for screening for COVID-19 (principal) ==

== ENCOUNTER → 2020-08-22 | Outpatient (REF) | payer MEDICARE, OTHER | LOC: SKLAB3 07:00 | DX: E55.9 Vitamin D deficiency, unspecified (principal); Z79.899 Other long term (current) drug therapy ==

== ENCOUNTER → 2020-08-23 | Outpatient (REF) | payer MEDICARE, OTHER | LOC: SKLAB3 07:00 | PROVIDERS: ATTEND Internal Medicine | DX: Z20.822 Contact with and (suspected) exposure to COVID-19 (principal) ==

== ENCOUNTER → 2020-08-30 | Outpatient (REF) | payer MEDICARE, OTHER | LOC: SKLAB3 14:57 | PROVIDERS: ATTEND Internal Medicine | DX: Z20.822 Contact with and (suspected) exposure to COVID-19 (principal) ==

== ENCOUNTER → 2020-09-06 | Outpatient (REF) | payer MEDICARE, OTHER | LOC: SKLAB3 07:00 | PROVIDERS: ATTEND Internal Medicine | DX: Z11.52 Encounter for screening for COVID-19 (principal) ==

== ENCOUNTER → 2020-09-13 | Outpatient (REF) | payer MEDICARE, OTHER | LOC: SKLAB3 11:27 | PROVIDERS: ATTEND Internal Medicine | DX: Z20.822 Contact with and (suspected) exposure to COVID-19 (principal) ==

== ENCOUNTER → 2020-09-19 | Outpatient (REF) | payer MEDICARE, OTHER | LOC: SKLAB3 07:05 | DX: Z51.81 Encounter for therapeutic drug level monitoring (principal); Z79.899 Other long term (current) drug therapy ==

== ENCOUNTER → 2020-09-20 | Outpatient (REF) | payer MEDICARE, OTHER ==
--- NOTE | 2020-09-20 11:57 | IPNSKH ---
[facility] PROGRESS NOTE DATE: 09/20/20 HISTORY: Janina is on diuretic for what looks like dependent edema. There is a question of CHF. I do not believe she has had any pulmonary symptoms; however, (shortness of breath). A recent echo showed diastolic dysfunction, EF is 65%. She has had a mildly elevated BNP in the past. That being said again she is on chronic diuretic therapy she is due for a BMP. She follows with oncology for history of breast cancer. She has had bilateral mastectomies. She is currently free of disease according to that note. She apparently was unable to continue on her letrozole. I am not sure how long she was on that, but that would certainly be a risk factor for osteoporosis. She is on calcium. I see that we attempted to put her on vitamin D, but I see that was later discontinued (that was a duplicate order) for some reason. She also has pancytopenia. She has her next appointment with oncology on November 02. I am going to get blood work 2 weeks prior to that. Since she has been off her PPI there has been no ill effect. She remains ambulatory. There are no behavioral issues. She might need some assist perhaps with some activities of daily living, but generally speaking she is fairly independent. She does have a MOLST. There is also a Living Will. She does not have a Proxy at this time. She currently does have capacity. Her BIMS score was 12. Her current wishes are for resuscitation. I see that her blood pressure medication has been discontinued, but her blood pressures have been well controlled. There have been no seizures and she continues on her Depakote. Her Depakote level is therapeutic and she has her liver checked periodically. PHYSICAL EXAMINATION: On exam she is very pleasant. Cardiac: Regular. Chest: Clear. She has had bilateral mastectomies. Extremities: She does have some ankle puffiness which increases during the day, question dependent edema versus CHF see discussion above. Her albumin has been slightly low so this may be a component to the swelling. IMPRESSIONS/PLAN: 1. History of seizure disorder: Continues on Depakote. 2. History of breast cancer: Current with her follow up. She is NAD at this time. She has had bilateral mastectomies, has taken herself off hormonal therapy. 3. Pancytopenia: We will bring her CBC with diff to her next oncology appointment on November 02. B12 and folate have been normal. I have also done an SPEP which was non-diagnostic. 4. Remote DVT in 2004: Not on any anticoagulation. 5. Diverticulosis. 6. Subclinical hypothyroid: Last T4 was in July. 7. Bone health issues: As above continues on calcium D. Certainly is an osteoporotic risk given her prior hormonal treatment of uncertain duration. 8. History of hypertension: Currently off medications. 9. MOLST issues: As above I believe she does have capacity. We do not have a Proxy. We do have a Living Will. 10. History of basal cell carcinomas and actinics. ADVANCED DIRECTIVES: Her current wishes are for resuscitation.
== END ==
LOC: SKLAB3 07:00
PROVIDERS: ATTEND Internal Medicine
DX: Z20.822 Contact with and (suspected) exposure to COVID-19 (principal)

== ENCOUNTER → 2020-09-27 | Outpatient (REF) | payer MEDICARE, OTHER | LOC: SKLAB3 07:00 | PROVIDERS: ATTEND Internal Medicine | DX: Z20.822 Contact with and (suspected) exposure to COVID-19 (principal) ==

== ENCOUNTER → 2020-10-11 | Outpatient (REF) | payer MEDICARE, OTHER | LOC: SKLAB3 14:15 | PROVIDERS: ATTEND Internal Medicine | DX: Z20.822 Contact with and (suspected) exposure to COVID-19 (principal) ==

== ENCOUNTER → 2020-10-18 | Outpatient (REF) | payer MEDICARE, OTHER ==
[2020-10-18 07:30] LABS: BASO % 0.8 % (0.0-1.0); EOS # 0.1 10^3/uL (0.0-0.5); EOS % 2.3 % (0.0-3.0); HEMATOCRIT 36.9 % (36.0-47.0); HEMOGLOBIN 11.8 g/dl (12.0-15.5); LYMPH # 1.4 10^3/uL (1.5-5.0); LYMPH % 53.2 % (24.0-44.0); MEAN CORPUSCULAR HEMOGLOBIN 30.5 pg (27.0-33.0); MEAN CORPUSCULAR VOLUME 95.3 fl (80.0-96.0); MONO # 0.2 10^3/uL (0.0-0.8); NEUTROPHILS % 36.9 % (36.0-66.0); PLATELET COUNT, AUTOMATED 109 10^3/uL (150-450); RED BLOOD COUNT 3.87 10^6/uL (4.00-5.40); WHITE BLOOD COUNT 2.7 10^3/uL (4.0-10.0)
[2020-10-18 07:59] LABS: ALBUMIN 2.8 GM/DL (3.2-5.2); BILIRUBIN,TOTAL 0.3 MG/DL (0.2-1.0); CALCIUM LEVEL 9.3 MG/DL (8.8-10.2); CREATININE FOR GFR 1.07 MG/DL (0.55-1.30); GLOMERULAR FILTRATION RATE 52.7 (>39); POTASSIUM SERUM 3.8 MEQ/L (3.5-5.1); TOTAL PROTEIN 5.9 GM/DL (6.4-8.2)
== END ==
LOC: SKLAB3 07:00
DX: D64.9 Anemia, unspecified (principal); I10 Essential (primary) hypertension

== ENCOUNTER → 2020-10-18 | Outpatient (REF) | payer MEDICARE, OTHER | LOC: SKLAB3 07:00 | PROVIDERS: ATTEND Internal Medicine | DX: Z20.822 Contact with and (suspected) exposure to COVID-19 (principal) ==

== ENCOUNTER → 2020-11-03 | Outpatient (REF) | payer MEDICARE, OTHER | LOC: SKLAB3 08:56 | PROVIDERS: ATTEND Internal Medicine | DX: Z20.822 Contact with and (suspected) exposure to COVID-19 (principal) ==

== ENCOUNTER → 2020-11-16 | Outpatient (REF) | payer MEDICARE, OTHER ==
[2020-11-16 09:17] LABS: BASO % 0.4 % (0.0-1.0); EOS # 0.1 10^3/uL (0.0-0.5); EOS % 2.3 % (0.0-3.0); HEMOGLOBIN 12.4 g/dl (12.0-15.5); LYMPH # 1.2 10^3/uL (1.5-5.0); LYMPH % 45.1 % (24.0-44.0); MEAN CORPUSCULAR HEMOGLOBIN 29.9 pg (27.0-33.0); MEAN CORPUSCULAR VOLUME 96.4 fl (80.0-96.0); MONO # 0.2 10^3/uL (0.0-0.8); MONO % 6.2 % (2.0-8.0); NEUTROPHILS # 1.2 10^3/uL (1.5-8.5); NEUTROPHILS % 44.8 % (36.0-66.0); PLATELET COUNT, AUTOMATED 129 10^3/uL (150-450); RED BLOOD COUNT 4.15 10^6/uL (4.00-5.40); WHITE BLOOD COUNT 2.6 10^3/uL (4.0-10.0)
[2020-11-16 09:43] LABS: ALBUMIN 2.8 GM/DL (3.2-5.2); ALT/SGPT 8 U/L (12-78); BILIRUBIN,TOTAL 0.3 MG/DL (0.2-1.0); BLOOD UREA NITROGEN 33 MG/DL (7-18); CALCIUM LEVEL 9.4 MG/DL (8.8-10.2); CARBON DIOXIDE LEVEL 29 MEQ/L (21-32); CHLORIDE LEVEL 107 MEQ/L (98-107); CREATININE FOR GFR 0.94 MG/DL (0.55-1.30); GLOMERULAR FILTRATION RATE > 60.0 (>39); GLUCOSE, FASTING 91 MG/DL (70-100); SODIUM LEVEL 142 MEQ/L (136-145); TOTAL PROTEIN 6.2 GM/DL (6.4-8.2); VALPROIC ACID (DEPAKOTE) 91.4 UG/ML (50.0-100.0)
== END ==
LOC: SKLAB3 07:00
DX: G40.909 Epilepsy, unspecified, not intractable, without status epilepticus (principal); Z79.899 Other long term (current) drug therapy

== ENCOUNTER → 2020-11-21 | Outpatient (REF) | payer MEDICARE, OTHER | LOC: SKLAB3 11:50 | DX: E55.9 Vitamin D deficiency, unspecified (principal); Z79.899 Other long term (current) drug therapy ==

== ENCOUNTER → 2020-12-28 | Outpatient (REF) | payer MEDICARE, OTHER | LOC: SKLAB3 07:00 | DX: G40.909 Epilepsy, unspecified, not intractable, without status epilepticus (principal); Z79.899 Other long term (current) drug therapy ==

== ENCOUNTER → 2021-02-20 | Outpatient (REF) | payer MEDICARE, OTHER ==
[~2021-02-20] MED LIST changes: +OMEP40CA4 PO; -OMEP40CA97 PO
[2021-02-20 10:37] LABS: HEMATOCRIT 40.4 % (36.0-47.0); HEMOGLOBIN 12.8 g/dl (12.0-15.5); MEAN CORPUSCULAR HGB CONC 31.7 g/dl (32.0-36.5); MEAN CORPUSCULAR VOLUME 94.6 fl (80.0-96.0); PLATELET COUNT, AUTOMATED 147 10^3/uL (150-450); RED BLOOD COUNT 4.27 10^6/uL (4.00-5.40); WHITE BLOOD COUNT 3.2 10^3/uL (4.0-10.0)
[2021-02-20 11:02] LABS: BILIRUBIN,TOTAL 0.5 MG/DL (0.2-1.0); CALCIUM LEVEL 9.2 MG/DL (8.8-10.2); CREATININE FOR GFR 0.96 MG/DL (0.55-1.30); GLOMERULAR FILTRATION RATE 59.5 (>32); TOTAL PROTEIN 6.7 GM/DL (6.4-8.2); VALPROIC ACID (DEPAKOTE) 95.7 UG/ML (50.0-100.0)
== END ==
LOC: SKLAB3 07:00
DX: D64.9 Anemia, unspecified (principal); I10 Essential (primary) hypertension; Z51.81 Encounter for therapeutic drug level monitoring; Z79.899 Other long term (current) drug therapy

== ENCOUNTER → 2021-05-22 | Outpatient (REF) | payer MEDICARE, OTHER ==
[~2021-05-22] MED LIST changes: +FURO20TA2; +POTA10CA32
[2021-05-22 10:26] LABS: HEMATOCRIT 37.7 % (36.0-47.0); HEMOGLOBIN 11.8 g/dl (12.0-15.5); MEAN CORPUSCULAR HEMOGLOBIN 29.7 pg (27.0-33.0); MEAN CORPUSCULAR HGB CONC 31.3 g/dl (32.0-36.5); PLATELET COUNT, AUTOMATED 112 10^3/uL (150-450); RED BLOOD COUNT 3.97 10^6/uL (4.00-5.40); WHITE BLOOD COUNT 2.6 10^3/uL (4.0-10.0)
[2021-05-22 10:57] LABS: ALBUMIN 2.6 GM/DL (3.2-5.2); BILIRUBIN,TOTAL 0.4 MG/DL (0.2-1.0); CALCIUM LEVEL 9.2 MG/DL (8.8-10.2); CREATININE FOR GFR 1.04 MG/DL (0.55-1.30); GLOMERULAR FILTRATION RATE 54.3 (>32); POTASSIUM SERUM 3.7 MEQ/L (3.5-5.1); VALPROIC ACID (DEPAKOTE) 91.4 UG/ML (50.0-100.0)
[2021-05-22 11:03] LABS: TOTAL 25(OH) VITAMIN D 40.7 NG/ML (30.0-100.0)
== END ==
LOC: SKLAB3 06:39
PROVIDERS: ATTEND Neuromusculoskeletal Medicine & OMM
DX: D64.9 Anemia, unspecified (principal); I10 Essential (primary) hypertension; Z51.81 Encounter for therapeutic drug level monitoring; Z79.899 Other long term (current) drug therapy

== ENCOUNTER → 2021-05-24 | Outpatient (REF) | payer MEDICARE, OTHER | LOC: SKLAB3 08:00 | PROVIDERS: ATTEND Neuromusculoskeletal Medicine & OMM | DX: Z20.822 Contact with and (suspected) exposure to COVID-19 (principal) ==

== ENCOUNTER → 2021-05-28 | Outpatient (REF) | payer MEDICARE, OTHER | LOC: SKLAB3 06:53 | PROVIDERS: ATTEND Internal Medicine | DX: Z20.822 Contact with and (suspected) exposure to COVID-19 (principal) ==

== ENCOUNTER → 2021-05-31 | Outpatient (REF) | payer MEDICARE, OTHER | LOC: SKLAB3 05:30 | PROVIDERS: ATTEND Internal Medicine | DX: Z20.822 Contact with and (suspected) exposure to COVID-19 (principal); Z53.9 Procedure and treatment not carried out, unspecified reason ==

== ENCOUNTER → 2021-06-04 | Outpatient (REF) | payer MEDICARE, OTHER | LOC: SKLAB3 06:13 | PROVIDERS: ATTEND Internal Medicine | DX: Z20.822 Contact with and (suspected) exposure to COVID-19 (principal); Z53.9 Procedure and treatment not carried out, unspecified reason ==

== ENCOUNTER 2021-07-06 13:24 | Emergency (ER) | payer MEDICARE, OTHER ==
[~2021-07-06] VITALS: Ht 154.9 cm; Wt 62.3 kg
[2021-07-06 13:25] VITALS: BP 124/69
--- OUTSIDE RECORDS SUMMARY | 2021-07-06 13:35 | CCD | Continuity of Care Document ---
Author Author Janina MCELROY F.N.P. Organization Unknown Address [address], [address] [place] [address] Phone [phone] Care Team Providers Care Urogynecology Physician Name Role Phone Brandy Childs DO AUTM [phone] Problems Description No Information Available Social History Type Date Description Comments Sex Unknown Tobacco Use Start: Unknown Never Smoked Cigarettes ETOH Use Denies alcohol use Sun Exposure minimum amount of sun exposure Sun Exposure Has experienced blistering from sunburns Sun Exposure Does not use sunscreen Sun Exposure Tanning bed - Has used in past. No longer using. Allergies, Adverse Reactions, Alerts Active Allergies Criticality Reaction | Severity Comments Date Amoxicillin Unable to assess criticality 04/16/2021 Aspirin Unable to assess criticality 04/16/2021 Cefadroxil Unable to assess criticality 04/16/2021 Chocolate Unable to assess criticality 04/16/2021 Inactive Allergies NKDA Unable to assess criticality 04/16/2021 Medications Active Medications SIG Qnty Indications Ordering Provide r Date Metamucil Unknown Melatonin Unknown Senna Unknown Furosemide Unknown Potassium Chloride Unknown Fosamax Unknown Depakote Unknown Carvedilol Unknown Calcium + D Unknown Tylenol Unknown Pneumovax 23 Unknown Dulcolax Unknown Milk Of Magnesia Unknown 00 Immunizations Description No Information Available Vital Signs Date Vital Result Comment 04/16/2021 10:29am BP Systolic 141 mmHg BP Diastolic 96 mmHg O2 % BldC Oximetry 95 % Heart Rate 76 /min Respiratory Rate 15 /min Results Test Acquired Date Facility Test Result H/L Range Note Laboratory test finding 04/16/2021 [facility] Pathology <pending> Procedures Date Code Description Status 04/16/2021 20622 Office/Outpatient New Moderate M DM 45-59 Minutes Completed 04/16/2021 37911 Each Separate/Additional Lesion Completed 04/16/2021 60636 Shave Biopsy Of Skin, Single Les ion Completed Medical Devices Description No Information Available Encounters Type Date Location Provider Dx Diagnosis Office Visit 04/16/2021 10:30a Main Office Corry O'miguelito, F.N.P. D48.5 Neoplasm of uncertain behavior of skin Z12.83 Encounter for screening for malignant neoplasm of skin Assessments Date Code Description Provider 04/16/2021 D48.5 Neoplasm of uncertain behavior o f skin Corry O'miguelito, F.N.P. 04/16/2021 Z12.83 Encounter for screening for evin gnant neoplasm of skin Corry O'miguelito, F.N.P. Plan of Treatment Future Appointment(s):* 04/18/2022 10:00 am - Corry O'miguelito, F.N.P. at Main Office 04/16/2021 - Corry O'miguelito, F.N.P.* D48.5 Neoplasm of uncertain behavior of skin* Comments:* Shave biopsy today nose, nose tip, and L nose - BCC and R thumb - AK vs SCC in situDiscussed risks of biopsy to include scarring, infection, need for further treatment. Alternative to the biopsy is watchful waitingInformed consent for biopsy signed and photographs takenVerified , name and sites. The nose, nose tip, and L nose were prepped with alcohol and anesthestized with 1% Lidocaine with Epinephrine. The R thumb were prepped with alcohol and anesthestized with 1% Lidocaine.The wound was dressed with band-aid and Vaseline. Patient tolerated well with no complications. Specimen sent to pathology Wound care instructions given Will call with pathology when availableInstructed to call with any problems * Z12.83 Encounter for screening for malignant neoplasm of skin* Comments:* See above * Follow up:* Yearly/PRN - [facility] Functional Status Description No Information Available Mental Status Description No Information Available Referrals Refer to Reason for Referral Status Appt Date Sharon Aj FNP-[facility] [id number] [place] [address] [phone]"
--- OUTSIDE RECORDS SUMMARY | 2021-07-06 13:35 | CCD ---
Author Organization Unknown Address [address] [place] [address] Phone [phone] Care Team Providers Care Medicare Interviewer Name Role Phone Jazzy Zakia Unavailable Unavailable Allergies Code Code System Name Reaction Severity Status Onset Alendronate Sodium Rash Mild to Moderate Active 723 RxNorm Amoxicillin Vomiting Mild to Moderate Active 1191 RxNorm Aspirin Rash Mild Active 2177 RxNorm Cefadroxil Active 2551 RxNorm Ciprofloxacin Rash Mild to Moderate Active Clavulanic Acid Vomiting Mild Active 5441 RxNorm Hydrocodone Rash Mild to Moderate Active 6878290 RxNorm Latex Other Mild Active 24430 RxNorm Lisinopril Myalgias (Muscle Luis n) Mild Active Sulfa (Sulfonamide Antibiotics) Rash Mild to Moderate Active 92511 RxNorm Terazosin Rash Mild Active Notes: Pt has multiple 1st Gen cephalosp orins at [facility] Medications Name Status Start Date Stop Date calcium 500 mg, 1 tab twice a day (8 AM & 8 PM) Active Not available carvedilol 6.25 mg tablet Take 1 tablet twice a day by oral route. Active Not available Depakote 125 Mg take 3 CAPS at bedtime Active Not avail able Depakote 125 mg tablet,delayed release Take 4 tablets every day by oral route in the morning. Active Not available Fosamax 70 mg tablet Take 1 tablet every week by oral route in the morning. Active Not available Lasix 20 mg tablet Take 1 tablet every day by oral route in the morning. Active Not available Meladox 3 mg tablet,extended release Take 1 tablet every day by oral route at bedtime for 30 days. Completed 06/04/2021 potassium chloride (bulk) powder 20 MEQ, twice a day at 8AM & 8 PM Active Not a vailable Senna-Extra 17.2 mg tablet Take 2 tablets every day by oral route at bedtime for 30 days. Active Not available Vitamin D3 Active Not available Problems None recorded. Procedures Notes: breast CA surgery X 3 Results Lab Results None recorded. Past Encounters 06/04/2021 Patient New to Provider Danitza Bloom, SIPHONER: [address] [place] [address], Ph. Social History Tobacco Smoking Status Never Smoker Vaccine List Notes: Pt has had 3 covid vaccines & flu vaccine. Plan of Care Reminders Provider Appointments None recorded. Lab None recorded. Referral None recorded. Procedures None recorded. Surgeries None recorded. Imaging None recorded. Vitals Height Weight BMI Blood Pressure 61.5 in 138 lbs 25.7 kg/m2 122/87 mm[Hg]
--- OUTSIDE RECORDS SUMMARY | 2021-07-06 13:35 | CCD ---
Author Organization Unknown Address [address] [place] [address] Phone [phone] Care Team Providers Care Computer Lab Aide Name Role Phone Danitza Bloom Unavailable Unavailable Allergies Code Code System Name Reaction Severity Status Onset Alendronate Sodium Rash Mild to Moderate Acti ve 723 RxNorm Amoxicillin Vomiting Mild to Moderate Active 1191 RxNorm Aspirin Rash Mild Active 2177 RxNorm Cefadroxil Active 2551 RxNorm Ciprofloxacin Rash Mild to Moderate Active Clavulanic Acid Vomiting Mild Active 5489 RxNorm Hydrocodone Rash Mild to Moderate Active 7710750 RxNorm Latex Other Mild Active 82404 RxNorm Lisinopril Myalgias (Muscle Pain) Mild Active Sulfa (Sulfonamide Antibiotics) Rash Mild to Moderate Active 15129 RxNorm Terazosin Rash Mild Active Notes: Pt has multiple 1st Gen cephalosp orins at [facility] Medications Name Status Start Date Stop Date alendronate 70 mg tablet Active Not jesus ilable calcium 500 mg, 1 tab twice a day (8 AM & 8 PM) Active Not available carvedilol 6.25 mg tablet Take 1 tablet twice a day by oral route. Active Not available cholecalciferol (vitamin D3) 25 mcg (1,0 00 unit) capsule TAKE ONE CAPSULE BY MOUTH @12PM Active Not jesus ilable Depakote 125 Mg take 3 CAPS at bedtime Completed Depakote 125 mg tablet,delayed release Take 4 tablets every day by oral route in the morning. Active Not available divalproex 125 mg capsule,delayed release sprinkle Completed 06/21/2021 furosemide 20 mg tablet TAKE ONE TABLET BY MOUTH EVERY MORNING Active Not available Meladox 3 mg tablet,extended release Take 1 tablet every day by oral route at bedtime for 30 days. Completed 06/04/2021 melatonin 3 mg tablet TAKE ONE TABLET BY MOUTH AT BEDTIME NEEDED Active Not available potassium chloride (bulk) powder 20 MEQ, twice a day at 8AM & 8 PM Completed 06/21 potassium chloride ER 10 mEq capsule,extended release Completed 06/21/2021 potassium chloride ER 20 mEq tablet,exte nded release(part/cryst) TAKE ONE TABLET BY MOUTH TWICE DAILY Active No t available Senokot Extra Strength 17.2 mg tablet take 2 tablets by mouth daily at bedtime 8pm Active Not available Vitamin D3 Active Not available Problems Name Status Onset Date Source Insomnia Active 06/18/2021 Seizure Disorder Active 06/21/2021 Deep Venous Thrombosis of Lower Extremity Unknown 2020 Osteoporosis Active 06/21/2021 Subdural Hematoma Active 06/21/2021 Bilateral Mastectomy Active 06/21/2021 Procedures Notes: breast CA surgery X 3 Results Lab Results None recorded. Past Encounters 06/21/2021 Hypertensive Disorder ROSITA Valderrama: [address] [place] [address], Ph. 06/19/2021 Jeffrey Ronquillo MD: [address] [place] [phone], Ph. 06/04/2021 Patient New to Provider ROSITA Valderrama: [address] [place] [phone], Ph. Social History Tobacco Smoking Status Never Smoker Vaccine List Notes: Pt has had 3 covid vaccines & flu vaccine. Plan of Care Reminders Provider Appointments None recorded. Lab None recorded. Referral None recorded. Procedures None recorded. Surgeries None recorded. Imaging None recorded. Vitals 06/21/2021 09:00AM ESTABLISHED [id number] Height Weight BMI Blood Pressure 61.5 in 149 lbs 2 oz 27.7 kg/m2 122/85 mm[Hg] 06/04/2021 03:00PM NEW PATIENT (13yrs - OLDER) Height Weight BMI Blood Pressure 61.5 in 138 lbs 25.7 kg/m2 122/87 mm[Hg]
--- OUTSIDE RECORDS SUMMARY | 2021-07-06 13:35 | CCD ---
Author Organization Unknown Address [address] [place] [address] Phone [phone] Care Team Providers Care Grocery Deliverer Name Role Phone Danitza Bloom Unavailable Unavailable Allergies Code Code System Name Reaction Severity Status Onset Alendronate Sodium Rash Mild to Moderate Active 723 RxNorm Amoxicillin Vomiting Mild to Moderate Active 1191 RxNorm Aspirin Rash Mild Active 2177 RxNorm Cefadroxil Active 2551 RxNorm Ciprofloxacin Rash Mild to Moderate Active Clavulanic Acid Vomiting Mild Active 5489 RxNorm Hydrocodone Rash Mild to Moderate Active 7091444 RxNorm Latex Other Mild Active 84500 RxNorm Lisinopril Myalgias (Muscle Luis n) Mild Active Sulfa (Sulfonamide Antibiotics) Rash Mild to Moderate Active 16449 RxNorm Terazosin Rash Mild Active Notes: Pt has multiple 1st Gen cephalosp orins at [facility] Medications Name Status Start Date Stop [...] Encounters 06/21/2021 Hypertensive Disorder ROSITA Valderrama: [address] [place] [address], Ph. 06/19/2021 Jeffrey Ronquillo MD: [address] [place] [phone], Ph. 06/04/2021 Patient New to Provider ROSITA Valderrama: [address] [place] [phone], Ph. Social History Tobacco Smoking Status Never Smoker Vaccine List Notes: Pt has had 3 covid vaccines & flu vaccine. Plan of Care Reminders Provider Appointments None recorded. Lab None recorded. Referral None recorded. Procedures None recorded. Surgeries None recorded. Imaging None recorded. Vitals 06/21/2021 09:00AM ESTABLISHED [id number] Height Weight BMI Blood Pressure 61.5 in 149 lbs 2 oz 27.7 kg/m2 122/85 mm[Hg] 06/04/2021 03:00PM NEW PATIENT (13yrs - OLDER) Height Weight BMI Blood Pressure 61.5 in 138 lbs 25.7 kg/m2 122/87 mm[Hg]
--- OUTSIDE RECORDS SUMMARY | 2021-07-06 13:35 | CCD ---
Author Organization Unknown Address [address] [place] [address] Phone [phone] Care Team Providers Care Forklift Wheel Loader Name Role Phone Danitza Bloom Unavailable Unavailable Allergies Code Code System Name Reaction Severity Status Onset Alendronate Sodium Rash Mild to Moderate Active 723 RxNorm Amoxicillin Vomiting Mild to Moderate Active 1191 RxNorm Aspirin Rash Mild Active 2177 RxNorm Cefadroxil Active 2551 RxNorm Ciprofloxacin Rash Mild to Moderate Active Clavulanic Acid Vomiting Mild Active 5489 RxNorm Hydrocodone Rash Mild to Moderate Active 1379880 RxNorm Latex Other Mild Active 97500 RxNorm Lisinopril Myalgias (Muscle Luis n) Mild Active Sulfa (Sulfonamide Antibiotics) Rash Mild to Moderate Active 17635 RxNorm Terazosin Rash Mild Active Notes: Pt has multiple 1st Gen cephalosp orins at [facility] Medications Name Status Start Date Stop [...] Encounters 06/21/2021 Hypertensive Disorder ROSITA Valderrama: [address] [place] [address], Ph. 06/19/2021 Jeffrey Ronquillo MD: [address] [place] [phone], Ph. 06/04/2021 Patient New to Provider ROSITA Valderrama: [address] [place] [phone], Ph. Social History Tobacco Smoking Status Never Smoker Vaccine List Notes: Pt has had 3 covid vaccines & flu vaccine. Plan of Care Reminders Provider Appointments None recorded. Lab None recorded. Referral None recorded. Procedures None recorded. Surgeries None recorded. Imaging None recorded. Vitals 06/21/2021 09:00AM ESTABLISHED [id number] Height Weight BMI Blood Pressure 61.5 in 149 lbs 2 oz 27.7 kg/m2 122/85 mm[Hg] 06/04/2021 03:00PM NEW PATIENT (13yrs - OLDER) Height Weight BMI Blood Pressure 61.5 in 138 lbs 25.7 kg/m2 122/87 mm[Hg]
--- OUTSIDE RECORDS SUMMARY | 2021-07-06 13:35 | CCD ---
Author Author [facility] Organization [facility] Address Unknown Phone Unavailable Care Team Providers Care Sleep Lab Technician Name Role Phone Romel Ronquillo MD Unavailable Unavailable Romel Ronquillo MD Unavailable Unavailable Romel Ronquillo MD Unavailable Unavailable Romel Ronquillo MD Unavailable Unavailable Romel Ronquillo MD Unavailable Unavailable Romel Ronquillo MD Unavailable Unavailable Romel Ronquillo MD Unavailable Unavailable Romel Ronquillo MD Unavailable Unavailable Rmoel Ronquillo MD Unavailable Unavailable Romel Ronquillo MD Unavailable Unavailable Romel Ronquillo MD Unavailable Unavailable Romel Ronquillo MD Unavailable Unavailable Romel Ronquillo MD Unavailable Unavailable Romel Ronquillo MD Unavailable Unavailable Romel Ronquillo MD Unavailable Unavailable Romel Ronquillo MD Unavailable Unavailable Romel Ronquillo MD Unavailable Unavailable Romel Ronquillo MD Unavailable Unavailable Romel Ronquillo MD Unavailable Unavailable Romel Ronquillo MD Unavailable Unavailable Romel Ronquillo MD Unavailable Unavailable Romel Ronquillo MD Unavailable Unavailable Romel Ronquillo MD Unavailable Unavailable Romel Ronquillo MD Unavailable Unavailable Romel Ronquillo MD Unavailable Unavailable Romel Ronquillo MD Unavailable Unavailable Romel Ronquillo MD Unavailable Unavailable Romel Ronquillo MD Unavailable Unavailable Romel Ronquillo MD Unavailable Unavailable Romel Ronquillo MD Unavailable Unavailable Romel Ronquillo MD Unavailable Unavailable Romel Ronquillo MD Unavailable Unavailable Romel Ronquillo MD Unavailable Unavailable Romel Ronquillo MD Unavailable Unavailable Romel Ronquillo MD Unavailable Unavailable Romel Ronquillo MD Unavailable Unavailable Romel Ronquillo MD Unavailable Unavailable Romel Ronquillo MD Unavailable Unavailable Romel Ronquillo MD Unavailable Unavailable Romel Ronquillo MD Unavailable Unavailable Romel Ronquillo MD Unavailable Unavailable Romel Ronquillo MD Unavailable Unavailable Romel Ronquillo MD Unavailable Unavailable Romel Ronquillo MD Unavailable Unavailable Romel Ronquillo MD Unavailable Unavailable Romel Ronquillo MD Unavailable Unavailable Romel Ronquillo MD Unavailable Unavailable Romel Ronquillo MD Unavailable Unavailable Romel Ronquillo MD Unavailable Unavailable Romel Ronquillo MD Unavailable Unavailable Romel Ronquillo MD Unavailable Unavailable Romel Ronquillo MD Unavailable Unavailable Romel Ronquillo MD Unavailable Unavailable Romel Ronquillo MD Unavailable Unavailable Romel Ronquillo MD Unavailable Unavailable Romel Ronquillo MD Unavailable Unavailable Romel Ronquillo MD Unavailable Unavailable Romel Ronquillo MD Unavailable Unavailable Romel Ronquillo MD Unavailable Unavailable Romel Ronquillo MD Unavailable Unavailable Romel Ronquillo MD Unavailable Unavailable Romel Ronquillo MD Unavailable Unavailable Romel Ronquillo MD Unavailable Unavailable Romel Ronquillo MD Unavailable Unavailable Romel Ronquillo MD Unavailable Unavailable Romel Ronquillo MD Unavailable Unavailable Romel Ronquillo MD Unavailable Unavailable Romel Ronquillo MD Unavailable Unavailable Romel Ronquillo MD Unavailable Unavailable Romel Ronquillo MD Unavailable Unavailable Romel Ronquillo MD Unavailable Unavailable Romel Ronquillo MD Unavailable Unavailable Romel Ronquillo MD Unavailable Unavailable Romel Ronquillo MD Unavailable Unavailable Romel Ronquillo MD Unavailable Unavailable Romel Ronquillo MD Unavailable Unavailable Romel Ronquillo MD Unavailable Unavailable Romel Ronquillo MD Unavailable Unavailable Romel Ronquillo MD Unavailable Unavailable Romel Ronquillo MD Unavailable Unavailable Romel Ronquillo MD Unavailable Unavailable Romel Ronquillo MD Unavailable Unavailable Romel Ronquillo MD Unavailable Unavailable Romel Ronquillo MD Unavailable Unavailable Romel Ronquillo MD Unavailable Unavailable Romel Ronquillo MD Unavailable Unavailable Romel Ronquillo MD Unavailable Unavailable Romel Ronquillo MD Unavailable Unavailable Romel Ronquillo MD Unavailable Unavailable Romel Ronquillo MD Unavailable Unavailable Romel Ronquillo MD Unavailable Unavailable Romel Ronquillo MD Unavailable Unavailable Romel Ronquillo MD Unavailable Unavailable Romel Ronquillo MD Unavailable Unavailable Noragong, Danitza Unavailable Unavailable Noragong, Danitza Unavailable Unavailable Noragong, Danitza Unavailable Unavailable Noragong, Danitza Unavailable Unavailable Noragong, Danitza Unavailable Unavailable Noragong, Danitza Unavailable Unavailable Noragong, Danitza Unavailable Unavailable SacPricilla Ponce CONSTRUCTION ANALYST Unavailable Unavailable SacPricilla avila CONSTRUCTION ANALYST Unavailable Unavailable Sac, Cathy CONSTRUCTION ANALYST Unavailable Unavailable Sac, Cathy CONSTRUCTION ANALYST Unavailable Unavailable Sac, Cathy CONSTRUCTION ANALYST Unavailable Unavailable Sac, Cathy CONSTRUCTION ANALYST Unavailable Unavailable Sac, Cathy CONSTRUCTION ANALYST Unavailable Unavailable Sac, Cathy CONSTRUCTION ANALYST Unavailable Unavailable Sac, Cathy CONSTRUCTION ANALYST Unavailable Unavailable Sac, Cathy CONSTRUCTION ANALYST Unavailable Unavailable Sac, Cathy CONSTRUCTION ANALYST Unavailable Unavailable Sac, Cathy CONSTRUCTION ANALYST Unavailable Unavailable Sac, Cathy CONSTRUCTION ANALYST Unavailable Unavailable Sac, Cathy CONSTRUCTION ANALYST Unavailable Unavailable Sac, Cathy CONSTRUCTION ANALYST Unavailable Unavailable Sac, Cathy CONSTRUCTION ANALYST Unavailable Unavailable Sac, Cathy CONSTRUCTION ANALYST Unavailable Unavailable Sac, Cathy CONSTRUCTION ANALYST Unavailable Unavailable Sac, Cathy CONSTRUCTION ANALYST Unavailable Unavailable Sac, Cathy CONSTRUCTION ANALYST Unavailable Unavailable Sac, Cathy CONSTRUCTION ANALYST Unavailable Unavailable Sac, Cathy CONSTRUCTION ANALYST Unavailable Unavailable Sac, Cathy CONSTRUCTION ANALYST Unavailable Unavailable Sac, Cathy CONSTRUCTION ANALYST Unavailable Unavailable Sac, Cathy CONSTRUCTION ANALYST Unavailable Unavailable Sac, Cathy CONSTRUCTION ANALYST Unavailable Unavailable Sac, Cathy CONSTRUCTION ANALYST Unavailable Unavailable Sac, Cathy CONSTRUCTION ANALYST Unavailable Unavailable Sac, Cathy CONSTRUCTION ANALYST Unavailable Unavailable Sac, Cathy CONSTRUCTION ANALYST Unavailable Unavailable Sac, Cathy CONSTRUCTION ANALYST Unavailable Unavailable Sac, Cathy CONSTRUCTION ANALYST Unavailable Unavailable Sac, Cathy CONSTRUCTION ANALYST Unavailable Unavailable Sac, Cathy CONSTRUCTION ANALYST Unavailable Unavailable Sac, Cathy CONSTRUCTION ANALYST Unavailable Unavailable Sac, Cathy CONSTRUCTION ANALYST Unavailable Unavailable Re-disclosure Warning The records that you are about to access may contain information from federally-assisted alcohol or drug abuse programs. If such information is present, then the following federally mandated warning applies: This information has been disclosed to you from records protected by federal confidentiality rules (42 CFR part 2). The federal rules prohibit you from making any further disclosure of this information unless further disclosure is expressly permitted by the written consent of the person to whom it pertains or as otherwise permitted by 42 CFR part 2. A general authorization for the release of medical or other information is NOT sufficient for this purpose. The Federal rules restrict any use of the information to criminally investigate or prosecute any alcohol or drug abuse patient.The records that you are about to access may contain highly sensitive health information, the redisclosure of which is protected by Article 27-F of the [facility] Public Health law. If you continue you may have access to information: Regarding HIV / AIDS; Provided by facilities licensed or operated by the [facility] Office of Mental Health; or Provided by the [facility] Office for People With Developmental Disabilities. If such information is present, then the following [facility] mandated warning applies: This information has been disclosed to you from confidential records which are protected by state law. State law prohibits you from making any further disclosure of this information without the specific written consent of the person to whom it pertains, or as otherwise permitted by law. Any unauthorized further disclosure in violation of state law may result in a fine or nursing home sentence or both. A general authorization for the release of medical or other information is NOT sufficient authorization for further disc losure. Allergies and Adverse Reactions Type Description Substance Reaction Status Data Source(s ) Propensity to adverse reactions Propensity to adverse reactions NKDA MEDENT ([facility]) Family History Family Member Name Family Member Gender Family Member Status Date o f Status Description Data Source(s) Unknown Female Problem MEDENT ([facility], ) Encounters Encounter Providers Location Date Indications Data Source(s ) ROSITA Valderrama: [address] [place] [address], Ph. Attender: Danitza Bloom [facility] 06/21/2021 12:00:00 AM ZAIN MARTINI ([facility]) ROSITA Valderrama: [address] [place] [address], Ph. Attender: Danitza Bloom [facility] 06/21/2021 12:00:00 AM EST VINI ([facility]) ROSITA Valderrama: [address] [place] [address], Ph. Attender: Danitza Bloom [facility] 06/21/2021 12:00:00 AM EST VINI ([facility]) Jeffrey Ronquillo MD: [address] [place] [address], Ph. Attender: Jeffrey Ronquillo MD [facility] 06/19/2021 12:00:00 AM EST VINI ([facility]) Jeffrey Ronquillo MD: [address] [place] [address], Ph. Attender: Jeffrey Ronquillo MD [facility] 06/19/2021 12:00:00 AM EST VINI ([facility]) Jeffrey Ronquillo MD: [address] [place] [address], Ph. Attender: Jeffrey Ronquillo MD [facility] 06/19/2021 12:00:00 AM EST VINI ([facility]) ROSITA Valderrama: [address] [place] [address], Ph. Attender: Danitza Bloom [facility] 06/04/2021 12:00:00 AM EDT VINI ([facility]) ROSITA Valderrama: [address] [place] [address], Ph. Attender: Danitza Bloom [facility] 06/04/2021 12:00:00 AM EDT VINI ([facility]) ROSITA Valderrama: [address] [place] [address], Ph. Attender: Danitza Kaplankailyn [facility] 06/04/2021 12:00:00 AM EDT HOLLISTER ([facility]) Danitza Norkailyn, [facility]: [address] [place] [address], Ph. Attender: Danitza Kaplankailyn [facility] 06/04/2021 12:00:00 AM EDT HOLLISTER ([facility]) Outpatient Attender: Corry Stapleton [facility] Main Office 04/16/2021 10:30:00 AM EDT CHANTE ([facility]) Unknown [address] [facility] [address] 10/04/2020 12:00:00 AM EST eCW1 ([facility]) Immunizations Vaccine Date Status Description Data Source(s) COVID-19 VACCINE Pfizer 05/23/2021 12:00:00 AM EDT completed [facility] Vaccine Series Complete: YESThis Data wa s Submitted to [facility] Via [employer]. COVID-19 VACCINE Pfizer 08/29/2020 12:00:00 AM EST completed [facility] Vaccine Series Complete: YESThis Data wa s Submitted to [facility] Via [employer]. COVID-19 VACCINE Pfizer 08/08/2020 12:00:00 AM EST completed [facility] Vaccine Series Complete: NOThis Data was Submitted to [facility] Via [employer]. Medications Medication Brand Name Start Date Product Form Dose Route Admi nistrative Instructions Pharmacy Instructions Status Indications Reaction Description Data Source(s) Melatonin 3 MG Extended Release Oral Tab let Meladox 3 mg tablet,extended release Take 1 tablet every day by oral route at bedtime for 30 days. Meladox 3 mg tablet,extended release Take 1 tablet every day by oral route at bedtime for 30 days. 1 completed melatonin 3 MG E xtended Release Oral Tablet HOLLISTER ([facility]) potassium chloride (bulk) powder 20 MEQ, twice a day at 8AM & 8 PM 17 2170 completed potassium chloride ( bulk) powder [facility]) Depakote 125 Mg take 3 CAPS at bedtime c ompleted Depakote VINI ([facility]) Divalproex Sodium 125 MG Delayed Release Oral Capsule divalproex 125 mg capsule,delayed release sprinkle divalproex 125 mg capsule,delayed releas e sprinkle completed dival proex sodium 125 MG Delayed Release Oral Capsule VINI ([facility]) potassium chloride (bulk) powder 20 MEQ, twice a day at 8AM & 8 PM 17 7494 completed potassium chloride ( bulk) powder VINI ([facility]) Potassium Chloride 10 MEQ Extended Relea se Oral Capsule potassium chloride ER 10 mEq capsule,extended release potassium chloride ER 10 mEq capsule,ext ended release completed potass ium chloride 10 MEQ Extended Release Oral Capsule VINI ([facility]) Melatonin 3 MG Extended Release Oral Tab let Meladox 3 mg tablet,extended release Take 1 tablet every day by oral route at bedtime for 30 days. Meladox 3 mg tablet,extended release Take 1 tablet every day by oral route at bedtime for 30 days. 1 completed melatonin 3 MG E xtended Release Oral Tablet VINI ([facility]) Potassium Chloride 10 MEQ Extended Relea se Oral Capsule potassium chloride ER 10 mEq capsule,extended release potassium chloride ER 10 mEq capsule,ext ended release completed potass ium chloride 10 MEQ Extended Release Oral Capsule VINI ([facility]) Potassium Chloride 10 MEQ Extended Relea se Oral Capsule potassium chloride ER 10 mEq capsule,extended release potassium chloride ER 10 mEq capsule,ext ended release completed potass ium chloride 10 MEQ Extended Release Oral Capsule VINI ([facility]) Melatonin 3 MG Extended Release Oral Tab let Meladox 3 mg tablet,extended release Take 1 tablet every day by oral route at bedtime for 30 days. Meladox 3 mg tablet,extended release Take 1 tablet every day by oral route at bedtime for 30 days. 1 completed melatonin 3 MG E xtended Release Oral Tablet VINI ([facility]) Divalproex Sodium 125 MG Delayed Release Oral Capsule divalproex 125 mg capsule,delayed release sprinkle divalproex 125 mg capsule,delayed releas e sprinkle completed dival proex sodium 125 MG Delayed Release Oral Capsule VINI ([facility]) Melatonin 3 MG Extended Release Oral Tab let Meladox 3 mg tablet,extended release Take 1 tablet every day by oral route at bedtime for 30 days. Meladox 3 mg tablet,extended release Take 1 tablet every day by oral route at bedtime for 30 days. 1 completed melatonin 3 MG E xtended Release Oral Tablet VINI ([facility]) Depakote 125 Mg take 3 CAPS at bedtime c ompleted Depakote VINI ([facility]) potassium chloride (bulk) powder 20 MEQ, twice a day at 8AM & 8 PM 17 7494 completed potassium chloride ( bulk) powder VINI ([facility]) Divalproex Sodium 125 MG Delayed Release Oral Capsule divalproex 125 mg capsule,delayed release sprinkle divalproex 125 mg capsule,delayed releas e sprinkle completed dival proex sodium 125 MG Delayed Release Oral Capsule VINI ([facility]) Depakote 125 Mg take 3 CAPS at bedtime c ompleted Depakote VINI ([facility]) Insurance Providers Payer name Policy type / Coverage type Policy ID Covered green party ID Covered green party's relationship to gipson Policy Gipson Plan Information MEDICARE A [id number] Self [id number] DME Jurisdiction A [facility] C [id number] SELF [id number] Medicare C [id number] SELF [id number] MEDICARE [id number] SP [id number] MEDICARE A [id number] Self [id number] MEDICARE [id number] SP [id number] [facility] U [id number] Self [id number] [facility] U [id number] Spouse [id number] UMR U [id number] Spouse [id number] UMR U [id number] Spouse [id number] [facility] [id number] HU2 [id number] [facility] [id number] 2 [id number] UMR F [id number] SELF [id number] Medicare C [id number] SELF [id number] [id number] UMR F [id number] SELF [id number] MEDICARE A [id number] Self [id number] ANSI-Not a Secondary Insurance [id number] ANSI-Medicare Part B [id number] ANSI-Not a Secondary Insurance [id number] [facility] [id number] [facility] [id number] ANSI-Not a Secondary Insurance [id number] ANSI-Medicare Part B [id number] ANSI-Medicare Part B [id number] ANSI-Not a Secondary Insurance [id number] ANSI-Not a Secondary Insurance [id number] ANSI-Medicare Part B [id number] ANSI-Not a Secondary Insurance [id number] ANSI-Medicare Part B [id number] ANSI-Medicare Part B [id number] ANSI-Not a Secondary Insurance [id number] ANSI-Medicare Part B [id number] ANSI-Not a Secondary Insurance [id number] [employer] (pr) Medigap Part B [id number] Family Dependent Medicare [place] Medicare Primary [id number] Self [employer] [id number] HU2 [id number] [employer] [id number] HU2 [id number] [place] Medigap Part B [id number] Family Dependent Medicare [facility] Medicare Primary [id number] Self [place] Medigap Part B [id number] Family Dependent [facility] CARE [id number] HU2 [id number] [facility] [id number] [id number] [facility] [id number] HU2 [id number] Medicare [facility] Medicare Primary [id number] Self MEDICARE [id number] SP [id number] [id number] [facility] [id number] HU2 [id number] [facility] [id number] HU2 [id number] R O [id number] S [id number] MEDICARE C [id number] S [id number] MEDICARE [id number] SP [id number] [facility] [id number] HU2 [id number] ANSI-Medicare Part B [id number] ANSI-Not a Secondary Insurance [id number] ANSI-Not a Secondary Insurance [id number] ANSI-Medicare Part B [id number] ANSI-Medicare Part B [id number] ANSI-Not a Secondary Insurance [id number] ANSI-Not a Secondary Insurance [id number] ANSI-Medicare Part B [id number] ANSI-Medicare Part B [id number] Problems, Conditions, and Diagnoses Code Display Name Description Problem Type Effective Dates Data Source(s) 81041791 Bilateral mastectomy Bilateral Mastectomy Problem 06/21/2021 12:00:00 AM EST VINI ([facility]) 81461072 Subdural hematoma Subdural Hematoma Problem 06/21/2021 12:00:00 AM EST VINI ([facility]) 67984705 Osteoporosis Osteoporosis Problem 06/21/2021 12:00:00 A M EST VINI ([facility]) [id number] 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 Deep Venous Thrombosis of Lower Extremity Problem 06/21/2021 12:00:00 AM EST - 06/21/2021 12:00:00 AM EST VINI ([facility]) 993471463 Seizure disorder Seizure Disorder Problem 06/21/2021 12 :00:00 AM EST VINI ([facility]) 83399000 Bilateral mastectomy Bilateral Mastectomy Problem 06/21/2021 12:00:00 AM EST VINI ([facility]) 88167611 Subdural hematoma Subdural Hematoma Problem 06/21/2021 12:00:00 AM EST VINI ([facility]) 50108658 Osteoporosis Osteoporosis Problem 06/21/2021 12:00:00 A M EST VINI ([facility]) [id number] 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 Deep Venous Thrombosis of Lower Extremity Problem 06/21/2021 12:00:00 AM EST - 06/21/2021 12:00:00 AM EST VINI ([facility]) 263391881 Seizure disorder Seizure Disorder Problem 06/21/2021 12 :00:00 AM EST VINI ([facility]) 21200801 Bilateral mastectomy Bilateral Mastectomy Problem 06/21/2021 12:00:00 AM EST VINI ([facility]) 86821339 Subdural hematoma Subdural Hematoma Problem 06/21/2021 12:00:00 AM EST VINI ([facility]) 12331096 Osteoporosis Osteoporosis Problem 06/21/2021 12:00:00 A M ZAIN MARTINI ([facility]) 398134676 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 Deep Venous Thrombosis of Lower Extremity Problem 06/21/2021 12:00:00 AM EST - 06/21/2021 12:00:00 AM ZAIN MARTINI ([facility]) 651981345 Seizure disorder Seizure Disorder Problem 06/21/2021 12 :00:00 AM EST VINI ([facility]) 609717311 Insomnia Insomnia Problem 06/18/2021 12:00:00 AM NORI MARTINI ([facility]) 809102235 Insomnia Insomnia Problem 06/18/2021 12:00:00 AM NORI MARTINI ([facility]) 037607338 Insomnia Insomnia Problem 06/18/2021 12:00:00 AM NORI MARTINI ([facility]) Surgeries/Procedures Procedure Description Date Indications Data Source(s) Shave Biopsy Of Skin, Single Lesion 04/16/2021 12:00:0 0 AM EDT MEDENT ([facility]) Each Separate/Additional Lesion 04/16/2021 12:00:00 AM EDT MEDENT ([facility]) OFFICE OUTPATIENT NEW 45 MINUTES 04/16/2021 12:00:00 A M EDT MEDENT ([facility]) Results ID Date Data Source [id number] 05/28/2021 09:35:00 AM EDT [facility] Name Value Range Interpretation Code Description Data Camille rce(s) Supporting Document(s) SARS coronavirus 2 RNA [Presence] in Res piratory specimen by SHAYLA with probe detection NEGATIVE [facility] This lab was ordered by [facility] a nd reported by [facility]. ID Date Data Source [id number] 05/24/2021 10:30:00 AM EDT [facility] Name Value Range Interpretation Code Description Data Camille rce(s) Supporting Document(s) SARS coronavirus 2 RNA [Presence] in Res piratory specimen by SHAYLA with probe detection NEGATIVE [facility] This lab was ordered by [facility] a nd reported by [facility]. ID Date Data Source [id number] 05/21/2021 12:00:00 AM EDT [facility] Name Value Range Interpretation Code Description Data Camille rce(s) Supporting Document(s) SARS coronavirus 2 Ag NEGATIVE [facility] This lab was ordered by [facility] [place] and reported by [facility]. ID Date Data Source [id number] 05/07/2021 12:00:00 AM EDT [facility] Name Value Range Interpretation Code Description Data Camille rce(s) Supporting Document(s) SARS coronavirus 2 Ag NEGATIVE [facility] This lab was ordered by [facility] and reported by [facility]. ID Date Data Source [id number] 05/02/2021 12:00:00 AM EDT [facility] Name Value Range Interpretation Code Description Data Camille rce(s) Supporting Document(s) SARS coronavirus 2 Ag NEGATIVE [facility] This lab was ordered by [facility] and reported by [facility]. ID Date Data Source [id number] 04/25/2021 12:00:00 AM EDT [facility] Name Value Range Interpretation Code Description Data Camille rce(s) Supporting Document(s) SARS coronavirus 2 Ag NEGATIVE [facility] This lab was ordered by [facility] and reported by [facility]. ID Date Data Source [id number] 04/18/2021 03:00:00 PM EDT [facility] Name Value Range Interpretation Code Description Data Camille rce(s) Supporting Document(s) SARS coronavirus 2 Ag [facility] This lab was ordered by [facility] and reported by [facility]. ID Date Data Source [id number] 04/16/2021 11:18:00 AM EDT [facility] ([facility]) Name Value Range Interpretation Code Description Data Camille rce(s) Supporting Document(s) Laboratory test finding (navigational concept) Laboratory test result [facility] ([facility]) ID Date Data Source [id number] 01/15/2021 12:00:00 AM EDT [facility] Name Value Range Interpretation Code Description Data Camille rce(s) Supporting Document(s) SARS coronavirus 2 Ag NEGATIVE [facility] This lab was ordered by [facility] and reported by [facility]. ID Date Data Source [id number] 01/04/2021 12:00:00 AM EDT [facility] Name Value Range Interpretation Code Description Data Camille rce(s) Supporting Document(s) SARS coronavirus 2 Ag NEGATIVE [facility] This lab was ordered by [facility] and reported by [facility]. ID Date Data Source [id number] 12/21/2020 12:00:00 AM EDT [facility] Name Value Range Interpretation Code Description Data Camille rce(s) Supporting Document(s) SARS coronavirus 2 Ag NEGATIVE [facility] This lab was ordered by [facility] and reported by [facility]. ID Date Data Source [id number] 12/18/2020 12:00:00 AM EDT [facility] Name Value Range Interpretation Code Description Data Camille rce(s) Supporting Document(s) SARS coronavirus 2 Ag NEGATIVE [facility] This lab was ordered by [facility] and reported by [facility]. ID Date Data Source [id number] 12/11/2020 12:00:00 AM EDT [facility] Name Value Range Interpretation Code Description Data Camille rce(s) Supporting Document(s) SARS coronavirus 2 Ag NEGATIVE [facility] This lab was ordered by [facility] and reported by [facility]. ID Date Data Source [id number] 11/28/2020 12:00:00 AM EDT [facility] Name Value Range Interpretation Code Description Data Camille rce(s) Supporting Document(s) SARS coronavirus 2 Ag NEGATIVE [facility] This lab was ordered by [facility] and reported by [facility]. ID Date Data Source [id number] 11/03/2020 10:30:00 AM EDT [facility] Name Value Range Interpretation Code Description Data Camille rce(s) Supporting Document(s) SARS-CoV-2 (COVID-19) RNA [Presence] in Respiratory specimen by SHAYLA with probe detection Not [facility] by [facility] and reported by [facility]. ID Date Data Source [id number] 10/18/2020 10:16:00 AM EDT [facility] Name Value Range Interpretation Code Description Data Camille rce(s) Supporting Document(s) SARS coronavirus 2 RNA Not Detected [facility] [place] This lab was ordered by [facility] and reported by [facility]. ID Date Data Source [id number] 10/11/2020 07:00:00 AM EST [facility] Name Value Range Interpretation Code Description Data Camille rce(s) Supporting Document(s) SARS coronavirus 2 RNA Not Detected [facility] [place] This lab was ordered by [facility] and reported by [facility]. ID Date Data Source [id number] 09/27/2020 10:00:00 AM EST [facility] Name Value Range Interpretation Code Description Data Camille rce(s) Supporting Document(s) SARS coronavirus 2 RNA Not Detected [facility] [place] This lab was ordered by [facility] and reported by [facility]. ID Date Data Source [id number] 09/20/2020 09:57:00 AM EST [facility] Name Value Range Interpretation Code Description Data Camille rce(s) Supporting Document(s) SARS coronavirus 2 RNA Not Detected [facility] [place] This lab was ordered by [facility] and reported by [facility]. ID Date Data Source [id number] 09/13/2020 09:00:00 AM EST [facility] Name Value Range Interpretation Code Description Data Camille rce(s) Supporting Document(s) SARS coronavirus 2 RNA Not Detected [facility] [place] This lab was ordered by [facility] and reported by [facility]. ID Date Data Source [id number] 09/06/2020 10:05:00 AM EST [facility] Name Value Range Interpretation Code Description Data Camille rce(s) Supporting Document(s) SARS coronavirus 2 RNA Not Detected [facility] [place] This lab was ordered by [facility] and reported by [facility]. ID Date Data Source [id number] 08/30/2020 06:12:00 AM EST [facility] Name Value Range Interpretation Code Description Data Camille rce(s) Supporting Document(s) SARS coronavirus 2 RNA Not Detected [facility] [place] This lab was ordered by [facility] and reported by [facility]. ID Date Data Source [id number] 08/23/2020 07:00:00 AM EST [facility] Name Value Range Interpretation Code Description Data Camille rce(s) Supporting Document(s) SARS coronavirus 2 RNA Not Detected [facility] [place] This lab was ordered by [facility] and reported by [facility]. ID Date Data Source [id number] 08/16/2020 08:00:00 AM EST [facility] Name Value Range Interpretation Code Description Data Camille rce(s) Supporting Document(s) SARS coronavirus 2 RNA Not Detected [facility] [place] This lab was ordered by [facility] and reported by [facility]. ID Date Data Source [id number] 08/09/2020 07:36:00 AM EST [facility] Name Value Range Interpretation Code Description Data Camille rce(s) Supporting Document(s) SARS coronavirus 2 RNA Not Detected [facility] [place] This lab was ordered by [facility] and reported by [facility]. ID Date Data Source [id number] 08/02/2020 09:00:00 AM EST [facility] Name Value Range Interpretation Code Description Data Camille rce(s) Supporting Document(s) SARS coronavirus 2 RNA [facility] This lab was ordered by [facility] and reported by [facility]. ID Date Data Source [id number] 07/26/2020 10:00:00 AM EST [facility] Name Value Range Interpretation Code Description Data Camille rce(s) Supporting Document(s) SARS coronavirus 2 RNA [facility] This lab was ordered by [facility] and reported by [facility]. ID Date Data Source [id number] 07/19/2020 07:30:00 AM EST [facility] Name Value Range Interpretation Code Description Data Camille rce(s) Supporting Document(s) SARS coronavirus 2 RNA [facility] This lab was ordered by [facility] and reported by [facility]. ID Date Data Source [id number] 07/12/2020 06:15:00 AM EST [facility] Name Value Range Interpretation Code Description Data Camille rce(s) Supporting Document(s) SARS coronavirus 2 RNA [facility] This lab was ordered by [facility] and reported by [facility]. ID Date Data Source [id number] 07/05/2020 10:10:00 AM EST [facility] Name Value Range Interpretation Code Description Data Camille rce(s) Supporting Document(s) SARS coronavirus 2 RNA [facility] This lab was ordered by [facility] and reported by [facility]. ID Date Data Source [id number] 06/28/2020 11:00:00 AM EST [facility] Name Value Range Interpretation Code Description Data Camille rce(s) Supporting Document(s) SARS coronavirus 2 RNA [facility] This lab was ordered by [facility] and reported by [facility]. ID Date Data Source [id number] 06/21/2020 08:00:00 AM EST [facility] Name Value Range Interpretation Code Description Data Camille rce(s) Supporting Document(s) SARS coronavirus 2 RNA [facility] This lab was ordered by [facility] and reported by [facility]. ID Date Data Source [id number] 06/15/2020 12:00:00 PM EST [facility] Name Value Range Interpretation Code Description Data Camille rce(s) Supporting Document(s) SARS coronavirus 2 RNA [facility] This lab was ordered by [facility] and reported by [facility]. Procedure Social History No Information Vital Signs ID Date Data Source UNK Name Value Range Interpretation Code Description Data Source(s) Diastolic blood pressure 85 mm[Hg] 85 mm[Hg] HOLLISTER ([facility]) Body height 61.5 [in_i] 61.5 [in_i] VINI ([facility]) Body mass index (BMI) [Ratio] 27.7 kg/m2 27.7 k g/m2 V[facility]I ([facility]) Systolic blood pressure 122 mm[Hg] 122 mm[Hg] A [facility] ([facility]) Body weight 2386 [oz_av] 2386 [oz_av] VINI ([facility]) Diastolic blood pressure 85 mm[Hg] 85 mm[Hg] VINI ([facility]) Diastolic blood pressure 85 mm[Hg] 85 mm[Hg] VINI ([facility]) Body height 61.5 [in_i] 61.5 [in_i] VINI ([facility]) Body mass index (BMI) [Ratio] 27.7 kg/m2 27.7 k g/m2 VINI ([facility]) Systolic blood pressure 122 mm[Hg] 122 mm[Hg] A [facility] ([facility]) Body weight 2386 [oz_av] 2386 [oz_av] VINI ([facility]) Body height 61.5 [in_i] 61.5 [in_i] VINI ([facility]) Body mass index (BMI) [Ratio] 27.7 kg/m2 27.7 k g/m2 VINI ([facility]) Systolic blood pressure 122 mm[Hg] 122 mm[Hg] [facility] Body weight 2386 [oz_av] 2386 [oz_av] VINI ([facility]) Diastolic blood pressure 87 mm[Hg] 87 mm[Hg] VINI ([facility]) Body height 61.5 [in_i] 61.5 [in_i] VINI ([facility]) Body mass index (BMI) [Ratio] 25.7 kg/m2 25.7 k g/m2 VINI ([facility]) Systolic blood pressure 122 mm[Hg] 122 mm[Hg] A [facility]) Body weight 2208 [oz_av] 2208 [oz_av] VINI ([facility]) Diastolic blood pressure 87 mm[Hg] 87 mm[Hg] VINI ([facility]) Body height 61.5 [in_i] 61.5 [in_i] VINI ([facility]) Body mass index (BMI) [Ratio] 25.7 kg/m2 25.7 k g/m2 VINI ([facility]) Systolic blood pressure 122 mm[Hg] 122 mm[Hg] A [facility]) Body weight 2208 [oz_av] 2208 [oz_av] VINI ([facility]) Diastolic blood pressure 87 mm[Hg] 87 mm[Hg] VINI ([facility]) Body height 61.5 [in_i] 61.5 [in_i] VINI ([facility]) Body mass index (BMI) [Ratio] 25.7 kg/m2 25.7 k g/m2 VINI ([facility]) Systolic blood pressure 122 mm[Hg] 122 mm[Hg] A [facility]) Body weight 2208 [oz_av] 2208 [oz_av] VINI ([facility]) Diastolic blood pressure 87 mm[Hg] 87 mm[Hg] VINI ([facility]) Body height 61.5 [in_i] 61.5 [in_i] VINI ([facility]) Body mass index (BMI) [Ratio] 25.7 kg/m2 25.7 k g/m2 VINI ([facility]) Systolic blood pressure 122 mm[Hg] 122 mm[Hg] A THENA ([facility]) Body weight 2208 [oz_av] 2208 [oz_av] VINI ([facility]) Systolic blood pressure 141 mm[Hg] 141 mm[Hg] M [facility] ([facility]) Heart rate 76 /min 76 /min [facility] ([facility]) Diastolic blood pressure 96 mm[Hg] 96 mm[Hg] [facility] ([facility]) Oxygen saturation in Arterial blood by Pulse oximetry 95 % 95 % [facility] ([facility]) Respiratory rate 15 /min 15 /min [facility] ( [facility]) Respiratory rate 12 /min 12 /min MEDENT ( [facility] ) Body height 60.5 [in_i] 60.5 [in_i] MEDENT ([facility], ) 5'0.50" Body weight 137.00 [lb_av] 137.00 [lb_av] MEDEN T ([facility] ) Body mass index (BMI) [Ratio] 26.3 kg/m2 26.3 k g/m2 [facility] ([facility] ) [place] body weight 100 [lb_av] 100 [lb_av] MEDEN T ([facility] ) Patient Treatment Plan of Care Planned Activity Planned Date Details Description Data Source (s) Potassium Chloride 10 MEQ Extended Release Oral Capsule VINI ([facility]) potassium chloride (bulk) powder 20 MEQ, twice a day at 8AM & 8 PM VINI ([facility]) Melatonin 3 MG Extended Release Oral Tablet VINI ([facility]) Divalproex Sodium 125 MG Delayed Release Oral Capsule VINI ([facility]) Depakote 125 Mg take 3 CAPS at bedtime HOLLISTER ([facility]) Potassium Chloride 10 MEQ Extended Release Oral Capsule VINI ([facility]) potassium chloride (bulk) powder 20 MEQ, twice a day at 8AM & 8 PM VINI ([facility]) Melatonin 3 MG Extended Release Oral Tablet VINI ([facility]) Divalproex Sodium 125 MG Delayed Release Oral Capsule VINI ([facility]) Depakote 125 Mg take 3 CAPS at bedtime VINI ([facility]) Potassium Chloride 10 MEQ Extended Release Oral Capsule VINI ([facility]) potassium chloride (bulk) powder 20 MEQ, twice a day at 8AM & 8 PM VINI ([facility]) Melatonin 3 MG Extended Release Oral Tablet VINI ([facility]) Divalproex Sodium 125 MG Delayed Release Oral Capsule VINI ([facility]) Depakote 125 Mg take 3 CAPS at bedtime VINI ([facility]) Melatonin 3 MG Extended Release Oral Tablet V[facility]I ([facility])
[2021-07-06] MEDS ORDERED: ALEN70TA82 PO (14:29)
--- OUTSIDE RECORDS SUMMARY | 2021-07-06 15:47 | CCD ---
Author Author [facility] Organization [facility] Address Unknown Phone Unavailable Care Team Providers Care Emergency Medicine Physician Assistant Name Role Phone Romel Ronquillo MD Unavailable Unavailable Romel Ronquillo MD Unavailable Unavailable Romel Ronquillo MD Unavailable Unavailable Romel Ronquillo MD Unavailable Unavailable Romel Ronquillo MD Unavailable Unavailable Romel Ronquillo MD Unavailable Unavailable Romel Ronquillo MD Unavailable Unavailable Romel Ronquillo MD Unavailable Unavailable Romel Ronquillo MD Unavailable Unavailable Roeml Ronquillo MD Unavailable Unavailable Romel Ronquillo MD [...] Unavailable Romel Ronquillo MD Unavailable Unavailable Romel Ronqiullo MD Unavailable Unavailable Romel Ronquillo MD Unavailable Unavailable Romel Ronquillo MD Unavailable Unavailable Noragong, Danitza Unavailable Unavailable Noragong, Danitza Unavailable Unavailable Noragong, Danitza Unavailable Unavailable Noragong, Danitza Unavailable Unavailable Noragong, Danitza Unavailable Unavailable Noragong, Danitza Unavailable Unavailable Noragong, Danitza Unavailable Unavailable ClearfieldPricilla Ponce FUNERAL PRE NEED CONSULTANT Unavailable Unavailable ClearfieldPricilla avila FUNERAL PRE NEED CONSULTANT Unavailable Unavailable [place], Cathy FUNERAL PRE NEED CONSULTANT Unavailable Unavailable [place], Cathy FUNERAL PRE NEED CONSULTANT Unavailable Unavailable [place], Cathy FUNERAL PRE NEED CONSULTANT Unavailable Unavailable [place], Cathy FUNERAL PRE NEED CONSULTANT Unavailable Unavailable [place], Cathy FUNERAL PRE NEED CONSULTANT Unavailable Unavailable [place], Cathy FUNERAL PRE NEED CONSULTANT Unavailable Unavailable [place], Cathy FUNERAL PRE NEED CONSULTANT Unavailable Unavailable [place], Cathy FUNERAL PRE NEED CONSULTANT Unavailable Unavailable [place], Cathy FUNERAL PRE NEED CONSULTANT Unavailable Unavailable [place], Cathy FUNERAL PRE NEED CONSULTANT Unavailable Unavailable [place], Cathy FUNERAL PRE NEED CONSULTANT Unavailable Unavailable [place], Cathy FUNERAL PRE NEED CONSULTANT Unavailable Unavailable [place], Cathy FUNERAL PRE NEED CONSULTANT Unavailable Unavailable [place], Cathy FUNERAL PRE NEED CONSULTANT Unavailable Unavailable [place], Cathy FUNERAL PRE NEED CONSULTANT Unavailable Unavailable [place], Cathy FUNERAL PRE NEED CONSULTANT Unavailable Unavailable [place], Cathy FUNERAL PRE NEED CONSULTANT Unavailable Unavailable [place], Cathy FUNERAL PRE NEED CONSULTANT Unavailable Unavailable [place], Cathy FUNERAL PRE NEED CONSULTANT Unavailable Unavailable [place], Cathy FUNERAL PRE NEED CONSULTANT Unavailable Unavailable [place], Cathy FUNERAL PRE NEED CONSULTANT Unavailable Unavailable [place], Cathy FUNERAL PRE NEED CONSULTANT Unavailable Unavailable [place], Cathy FUNERAL PRE NEED CONSULTANT Unavailable Unavailable [place], Cathy FUNERAL PRE NEED CONSULTANT Unavailable Unavailable [place], Cathy FUNERAL PRE NEED CONSULTANT Unavailable Unavailable [place], Cathy FUNERAL PRE NEED CONSULTANT Unavailable Unavailable Clearfield, Cathy FUNERAL PRE NEED CONSULTANT Unavailable Unavailable [place], Cathy FUNERAL PRE NEED CONSULTANT Unavailable Unavailable [place], Cathy FUNERAL PRE NEED CONSULTANT Unavailable Unavailable [place], Cathy FUNERAL PRE NEED CONSULTANT Unavailable Unavailable [place], Cathy FUNERAL PRE NEED CONSULTANT Unavailable Unavailable [place], Cathy FUNERAL PRE NEED CONSULTANT Unavailable Unavailable [place], Cathy FUNERAL PRE NEED CONSULTANT Unavailable Unavailable [place], Cathy FUNERAL PRE NEED CONSULTANT Unavailable Unavailable Re-disclosure Warning The records that [...] is protected by Article 27-F of the [facility] Public Health law. If you continue you may have access to information: Regarding HIV / AIDS; Provided by facilities licensed or operated by the [facility] Office of Mental Health; or Provided by the [facility] Office for People With Developmental Disabilities. If such information is present, then the following [facility] mandated warning applies: This information has [...] law may result in a fine or mcc sentence or both. A general authorization for the release of medical or other information is NOT sufficient authorization for further disc losure. Allergies and Adverse Reactions Type Description Substance Reaction Status Data Source(s ) Propensity to adverse reactions Propensity to adverse reactions NKDA MEDENT ([facility]) Family History Family Member Name Family Member Gender Family Member Status Date o f Status Description Data Source(s) Unknown Female Problem MEDENT ([facility], ) Encounters Encounter Providers Location Date Indications Data Source(s ) ROSITA Valderrama: [address] [place] [address], Ph. Attender: Dantiza Bloom [facility] Medical 06/21/2021 12:00:00 AM ZAIN MARTINI ([facility]) ROSITA Valderrama: [address] [place] [address], Ph. Attender: Danitza Bloom [facility] Medical 06/21/2021 12:00:00 AM EST VINI ([facility]) ROSITA Valderrama: [address] [place] [address], Ph. Attender: Danitza Bloom [facility] Medical 06/21/2021 12:00:00 AM EST VINI ([facility]) Jeffrey Ronquillo MD: [address] [place] [address], Ph. Attender: Jeffrey Ronquillo MD [facility] Medical 06/19/2021 12:00:00 AM EST VINI ([facility]) Jeffrey Ronquillo MD: [address] [place] [address], Ph. Attender: Jeffrey Ronquillo MD [facility] Medical 06/19/2021 12:00:00 AM EST VINI ([facility]) Jeffrey Ronquillo MD: [address] [place] [address], Ph. Attender: Jeffrey Ronquillo MD [facility] Medical 06/19/2021 12:00:00 AM EST VINI ([facility]) ROSITA Valderrama: [address] [place] [address], Ph. Attender: Danitza Bloom [facility] Medical 06/04/2021 12:00:00 AM EDT VINI ([facility]) ROSITA Valderrama: [address] [place] [address], Ph. Attender: Danitza Bloom [facility] Medical 06/04/2021 12:00:00 AM EDT VINI ([facility]) ROSITA Valderrama: [address] [place] [address], Ph. Attender: Danitza Kaplankailyn [facility] Medical 06/04/2021 12:00:00 AM EDT [place] ([facility]) Danitza Norkailyn, [facility]: [address] [place] [address], Ph. Attender: Danitza Kaplankailyn [facility] Medical 06/04/2021 12:00:00 AM EDT YORK ([facility]) Outpatient Attender: Corry Stapleton [facility] Main Office 04/16/2021 10:30:00 AM EDT CHANTE ([facility]) Unknown [address] [facility] [address] 10/04/2020 12:00:00 AM EST eCW1 ([facility]) Immunizations Vaccine Date Status Description Data Source(s) COVID-19 VACCINE Pfizer 05/23/2021 12:00:00 AM EDT completed [facility] Vaccine Series Complete: YESThis Data wa s Submitted to [facility]. COVID-19 VACCINE Pfizer 08/29/2020 12:00:00 AM EST completed [facility] Vaccine Series Complete: YESThis Data wa s Submitted to [facility] [employer]. COVID-19 VACCINE Pfizer 08/08/2020 12:00:00 AM EST completed [facility] Vaccine Series Complete: NOThis Data was Submitted to [facility] [employer]. Medications Medication Brand Name Start Date Product [...] 3 MG E xtended Release Oral Tablet [place] ([facility]) potassium chloride (bulk) powder 20 MEQ, twice a day at 8AM & 8 PM 17 2630 completed potassium chloride ( bulk) powder [facility]) Depakote 125 Mg take 3 CAPS at bedtime c ompleted Depakote VINI ([facility]) Divalproex Sodium 125 MG Delayed Release Oral Capsule divalproex 125 mg capsule,delayed release sprinkle divalproex 125 mg capsule,delayed releas e sprinkle completed dival proex sodium 125 MG Delayed Release Oral Capsule VINI ([facility]) potassium chloride (bulk) powder 20 MEQ, twice a day at 8AM & 8 PM 17 7494 completed potassium chloride ( bulk) powder VINI ([facility]) Potassium Chloride 10 MEQ Extended Relea se Oral Capsule potassium chloride ER 10 mEq capsule,extended release potassium chloride ER 10 mEq capsule,ext ended release completed potass ium chloride 10 MEQ Extended Release Oral Capsule VINI ([facility]) Melatonin 3 MG Extended Release Oral Tab let Meladox 3 mg tablet,extended release Take 1 tablet every day by oral route at bedtime for 30 days. Meladox 3 mg tablet,extended release Take 1 tablet every day by oral route at bedtime for 30 days. 1 completed melatonin 3 MG E xtended Release Oral Tablet VINI ([facility]) Potassium Chloride 10 MEQ Extended Relea se Oral Capsule potassium chloride ER 10 mEq capsule,extended release potassium chloride ER 10 mEq capsule,ext ended release completed potass ium chloride 10 MEQ Extended Release Oral Capsule VINI ([facility]) Potassium Chloride 10 MEQ Extended Relea se Oral Capsule potassium chloride ER 10 mEq capsule,extended release potassium chloride ER 10 mEq capsule,ext ended release completed potass ium chloride 10 MEQ Extended Release Oral Capsule VINI ([facility]) Melatonin 3 MG Extended Release Oral Tab let Meladox 3 mg tablet,extended release Take 1 tablet every day by oral route at bedtime for 30 days. Meladox 3 mg tablet,extended release Take 1 tablet every day by oral route at bedtime for 30 days. 1 completed melatonin 3 MG E xtended Release Oral Tablet VINI ([facility]) Divalproex Sodium 125 MG Delayed Release Oral Capsule divalproex 125 mg capsule,delayed release sprinkle divalproex 125 mg capsule,delayed releas e sprinkle completed dival proex sodium 125 MG Delayed Release Oral Capsule VINI ([facility]) Melatonin 3 MG Extended Release Oral Tab let Meladox 3 mg tablet,extended release Take 1 tablet every day by oral route at bedtime for 30 days. Meladox 3 mg tablet,extended release Take 1 tablet every day by oral route at bedtime for 30 days. 1 completed melatonin 3 MG E xtended Release Oral Tablet VINI ([facility]) Depakote 125 Mg take 3 CAPS at bedtime c ompleted Depakote VINI ([facility]) potassium chloride (bulk) powder 20 MEQ, twice a day at 8AM & 8 PM 17 7494 completed potassium chloride ( bulk) powder VINI ([facility]) Divalproex Sodium 125 MG Delayed Release Oral Capsule divalproex 125 mg capsule,delayed release sprinkle divalproex 125 mg capsule,delayed releas e sprinkle completed dival proex sodium 125 MG Delayed Release Oral Capsule VINI ([facility]) Depakote 125 Mg take 3 CAPS at bedtime c ompleted Depakote VINI ([facility]) Insurance Providers Payer name Policy type / Coverage type Policy ID Covered constitution party ID Covered constitution party's relationship to gipson Policy Gipson Plan Information MEDICARE A [id number] Self [id number] DME Jurisdiction A [facility] C [id number] SELF [id number] Medicare C [id number] SELF [id number] N71 MEDICARE [id number] SP [id number] MEDICARE A [id number] Self [id number] MEDICARE [id number] SP [id number] [id number] EMPIRE PLAN [facility] U [id number] Self [id number] [facility] U [id number] Spouse [id number] UMR U [id number] Spouse [id number] UMR U [id number] Spouse [id number] R [facility] [id number] HU2 [id number] R [facility] [id number] UMR F [id number] [id number] Medicare C [id number] SELF [id number] UMR F [id number] SELF [id number] MEDICARE A [id number] Self [id number] N71 ANSI-Not a Secondary Insurance [id number] ANSI-Medicare Part B [id number] ANSI-Not a Secondary Insurance [id number] [facility] [id number] [facility] [id number] ANSI-Not a Secondary Insurance [id number] ANSI-Medicare Part B [id number] ANSI-Medicare Part B [id number] ANSI-Not a Secondary Insurance [id number] ANSI-Not a Secondary Insurance [id number] ANSI-Medicare Part B [id number] ANSI-Not a Secondary Insurance [id number] ANSI-Medicare Part B [id number] ANSI-Medicare Part B [id number] ANSI-Not a Secondary Insurance [id number] ANSI-Medicare Part B [id number] ANSI-Not a Secondary Insurance [id number] [employer] (pr) Medigap Part B [id number] Family Dependent Medicare [place] Medicare Primary [id number] Self [employer] [id number] HU2 [id number] [employer] [id number] HU2 [id number] [employer] Medigap Part B [id number] Family Dependent Medicare [facility] Medicare Primary [id number] Self [place] Medigap Part B [id number] Family Dependent UMR [facility] [id number] HU2 [id number] [facility] [id number] [id number] BCBS [facility] [id number] [id number] Medicare [facility] Medicare Primary [id number] Self MEDICARE [id number] SP [id number] N71 [facility] [id number] HU2 [id number] R [facility] [id number] HU2 [id number] R O [id number] S [id number] MEDICARE C [id number] S [id number] MEDICARE [id number] SP [id number] R [facility] [id number] HU2 [id number] ANSI-Medicare Part B [id number] ANSI-Not a Secondary Insurance [id number] ANSI-Not a Secondary Insurance [id number] ANSI-Medicare Part B [id number] ANSI-Medicare Part B [id number] ANSI-Not a Secondary Insurance [id number] ANSI-Not a Secondary Insurance [id number] ANSI-Medicare Part B [id number] ANSI-Medicare Part B [id number] Problems, Conditions, and Diagnoses Code Display Name Description Problem Type Effective Dates Data Source(s) [id number] Bilateral mastectomy Bilateral Mastectomy Problem 06/21/2021 12:00:00 AM EST VINI ([facility]) 33154885 Subdural hematoma Subdural Hematoma Problem 06/21/2021 12:00:00 AM EST VINI ([facility]) 16340689 Osteoporosis Osteoporosis Problem 06/21/2021 12:00:00 A M EST VINI ([facility]) 301248806 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 Deep Venous Thrombosis of Lower Extremity Problem 06/21/2021 12:00:00 AM EST - 06/21/2021 12:00:00 AM EST VINI ([facility]) 234572918 Seizure disorder Seizure Disorder Problem 06/21/2021 12 :00:00 AM EST VINI ([facility]) 82724655 Bilateral mastectomy Bilateral Mastectomy Problem 06/21/2021 12:00:00 AM EST VINI ([facility]) 89935151 Subdural hematoma Subdural Hematoma Problem 06/21/2021 12:00:00 AM EST VINI ([facility]) 11397848 Osteoporosis Osteoporosis Problem 06/21/2021 12:00:00 A M EST VINI ([facility]) [id number] 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 Deep Venous Thrombosis of Lower Extremity Problem 06/21/2021 12:00:00 AM EST - 06/21/2021 12:00:00 AM EST VINI ([facility]) [id number] Seizure disorder Seizure Disorder Problem 06/21/2021 12 :00:00 AM EST VINI ([facility]) 35353889 Bilateral mastectomy Bilateral Mastectomy Problem 06/21/2021 12:00:00 AM EST VINI ([facility]) 32223345 Subdural hematoma Subdural Hematoma Problem 06/21/2021 12:00:00 AM EST VINI ([facility]) 30966335 Osteoporosis Osteoporosis Problem 06/21/2021 12:00:00 A M ZAIN MARTIIN ([facility]) 443254221 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 Deep Venous Thrombosis of Lower Extremity Problem 06/21/2021 12:00:00 AM EST - 06/21/2021 12:00:00 AM ZAIN MARTINI ([facility]) 232178985 Seizure disorder Seizure Disorder Problem 06/21/2021 12 :00:00 AM EST VINI ([facility]) 414604870 Insomnia Insomnia Problem 06/18/2021 12:00:00 AM NORI MARTINI ([facility]) 343959536 Insomnia Insomnia Problem 06/18/2021 12:00:00 AM NORI MARTINI ([facility]) 139483575 Insomnia Insomnia Problem 06/18/2021 12:00:00 AM NORI MARTINI ([facility]) Surgeries/Procedures Procedure Description Date Indications Data Source(s) Shave Biopsy Of Skin, Single Lesion 04/16/2021 12:00:0 0 AM EDT MEDENT ([facility]) Each Separate/Additional Lesion 04/16/2021 12:00:00 AM EDT MEDENT ([facility]) OFFICE OUTPATIENT NEW 45 MINUTES 04/16/2021 12:00:00 A M EDT MEDENT ([facility]) Results ID Date Data Source [id number] 05/28/2021 09:35:00 AM EDT [facility] Name Value Range Interpretation Code Description Data Camille rce(s) Supporting Document(s) SARS coronavirus 2 RNA [Presence] in Res piratory specimen by SHAYLA with probe detection NEGATIVE [facility] This lab was ordered by [facility] a nd reported by [facility]. ID Date Data Source [id number] 05/24/2021 10:30:00 AM EDT [facility] Name Value Range Interpretation Code Description Data Camille rce(s) Supporting Document(s) SARS coronavirus 2 RNA [Presence] in Res piratory specimen by SHAYLA with probe detection NEGATIVE [facility] This lab was ordered by [facility] a nd reported by [facility]. ID Date Data Source [id number] 05/21/2021 12:00:00 AM EDT [facility] Name Value Range Interpretation Code Description Data Camille rce(s) Supporting Document(s) SARS coronavirus 2 Ag NEGATIVE [facility] This lab was ordered by [facility] and reported by [facility]. ID Date Data Source [id number] 05/07/2021 12:00:00 AM EDT [facility] Name Value Range Interpretation Code Description Data Camille rce(s) Supporting Document(s) SARS coronavirus 2 Ag NEGATIVE [facility] This lab [facility] and reported by [facility]. ID Date Data Source [id number] 05/02/2021 12:00:00 AM EDT [facility] Name Value Range Interpretation Code Description Data Camille rce(s) Supporting Document(s) SARS coronavirus 2 Ag NEGATIVE [facility] This lab was ordered by [facility] and reported by [facility]. ID Date Data Source [id number] 04/25/2021 12:00:00 AM EDT [facility] Name Value Range Interpretation Code Description Data Camille rce(s) Supporting Document(s) SARS coronavirus 2 Ag NEGATIVE [facility] This lab was ordered by [facility] and reported by [facility]. ID Date Data Source [id number] 04/18/2021 03:00:00 PM EDT [facility] Name Value Range Interpretation Code Description Data Camille rce(s) Supporting Document(s) SARS coronavirus 2 Ag [facility] This lab was ordered by [facility] and reported by [facility]. ID Date Data Source [id number] 04/16/2021 11:18:00 AM EDT MEDENT ([facility]) Name Value Range Interpretation Code Description Data Camille rce(s) Supporting Document(s) Laboratory test finding (navigational concept) Laboratory test result MEDENT ([facility]) ID Date Data Source [id number] 01/15/2021 12:00:00 AM EDT [facility] Name Value Range Interpretation Code Description Data Camille rce(s) Supporting Document(s) SARS coronavirus 2 Ag NEGATIVE [facility] This lab was ordered by [facility] and reported by [facility]. ID Date Data Source [id number] 01/04/2021 12:00:00 AM EDT [facility] Name Value Range Interpretation Code Description Data Camille rce(s) Supporting Document(s) SARS coronavirus 2 Ag NEGATIVE [facility] This lab was ordered by [facility] and reported by [facility]. ID Date Data Source [id number] 12/21/2020 12:00:00 AM EDT [facility] Name Value Range Interpretation Code Description Data Camille rce(s) Supporting Document(s) SARS coronavirus 2 Ag NEGATIVE [facility] This lab was ordered by [facility] and reported by [facility]. ID Date Data Source [id number] 12/18/2020 12:00:00 AM EDT [facility] Name Value Range Interpretation Code Description Data Camille rce(s) Supporting Document(s) SARS coronavirus 2 Ag NEGATIVE [facility] This lab was ordered by [facility] and reported by [facility]. ID Date Data Source [id number] 12/11/2020 12:00:00 AM EDT [facility] Name Value Range Interpretation Code Description Data Camille rce(s) Supporting Document(s) SARS coronavirus 2 Ag NEGATIVE [facility] This lab was ordered by [facility] and reported by [facility]. ID Date Data Source [id number] 11/28/2020 12:00:00 AM EDT [facility] Name Value Range Interpretation Code Description Data Camille rce(s) Supporting Document(s) SARS coronavirus 2 Ag NEGATIVE [facility] This lab was ordered by [facility] and reported by [facility]. ID Date Data Source [id number] 11/03/2020 10:30:00 AM EDT [facility] Name Value Range Interpretation Code Description Data Camille rce(s) Supporting Document(s) SARS-CoV-2 (COVID-19) RNA [Presence] in Respiratory specimen by SHAYLA with probe detection Not Detected [facility] This lab was ordered by [facility] and reported by [facility]. ID Date Data Source [id number] 10/18/2020 10:16:00 AM EDT [facility] Name Value Range Interpretation Code Description Data Camille rce(s) Supporting Document(s) SARS coronavirus 2 RNA Not Detected [facility] This lab was ordered by [facility] and reported by [facility]. ID Date Data Source [id number] 10/11/2020 07:00:00 AM EST [facility] Name Value Range Interpretation Code Description Data Camille rce(s) Supporting Document(s) SARS coronavirus 2 RNA Not Detected [facility] [place] This lab was ordered by [facility] and reported by [facility]. ID Date Data Source [id number] 09/27/2020 10:00:00 AM EST [facility] Name Value Range Interpretation Code Description Data Camille rce(s) Supporting Document(s) SARS coronavirus 2 RNA Not Detected [facility] [place] This lab was ordered by [facility] and reported by [facility]. ID Date Data Source [id number] 09/20/2020 09:57:00 AM EST [facility] Name Value Range Interpretation Code Description Data Camille rce(s) Supporting Document(s) SARS coronavirus 2 RNA Not Detected [facility] [place] This lab was ordered by [facility] and reported by [facility]. ID Date Data Source [id number] 09/13/2020 09:00:00 AM EST [facility] Name Value Range Interpretation Code Description Data Camille rce(s) Supporting Document(s) SARS coronavirus 2 RNA Not Detected [facility] [place] This lab was ordered by [facility] and reported by [facility]. ID Date Data Source [id number] 09/06/2020 10:05:00 AM EST [facility] Name Value Range Interpretation Code Description Data Camille rce(s) Supporting Document(s) SARS coronavirus 2 RNA Not Detected [facility] [place] This lab was ordered by [facility] and reported by [facility]. ID Date Data Source [id number] 08/30/2020 06:12:00 AM EST [facility] Name Value Range Interpretation Code Description Data Camille rce(s) Supporting Document(s) SARS coronavirus 2 RNA Not Detected [facility] [place] This lab was ordered by [facility] and reported by [facility]. ID Date Data Source [id number] 08/23/2020 07:00:00 AM EST [facility] Name Value Range Interpretation Code Description Data Camille rce(s) Supporting Document(s) SARS coronavirus 2 RNA Not Detected [facility] [place] This lab was ordered by [facility] and reported by [facility]. ID Date Data Source [id number] 08/16/2020 08:00:00 AM EST [facility] Name Value Range Interpretation Code Description Data Camille rce(s) Supporting Document(s) SARS coronavirus 2 RNA Not Detected [facility] [place] This lab was ordered by [facility] and reported by [facility]. ID Date Data Source [id number] 08/09/2020 07:36:00 AM EST [facility] Name Value Range Interpretation Code Description Data Camille rce(s) Supporting Document(s) SARS coronavirus 2 RNA Not Detected [facility] [place] This lab was ordered by [facility] and reported by [facility]. ID Date Data Source [id number] 08/02/2020 09:00:00 AM EST [facility] Name Value Range Interpretation Code Description Data Camille rce(s) Supporting Document(s) SARS coronavirus 2 RNA [facility] This lab was ordered by [facility] and reported by [facility]. ID Date Data Source [id number] 07/26/2020 10:00:00 AM EST [facility] Name Value Range Interpretation Code Description Data Camille rce(s) Supporting Document(s) SARS coronavirus 2 RNA [facility] This lab was ordered by [facility] and reported by [facility]. ID Date Data Source [id number] 07/19/2020 07:30:00 AM EST [facility] Name Value Range Interpretation Code Description Data Camille rce(s) Supporting Document(s) SARS coronavirus 2 RNA [facility] This lab was ordered by [facility] and reported by [facility]. ID Date Data Source [id number] 07/12/2020 06:15:00 AM EST [facility] Name Value Range Interpretation Code Description Data Camille rce(s) Supporting Document(s) SARS coronavirus 2 RNA [facility] This lab was ordered by [facility] and reported by [facility]. ID Date Data Source [id number] 07/05/2020 10:10:00 AM EST [facility] Name Value Range Interpretation Code Description Data Camille rce(s) Supporting Document(s) SARS coronavirus 2 RNA [facility] This lab was ordered by [facility] and reported by [facility]. ID Date Data Source [id number] 06/28/2020 11:00:00 AM EST [facility] Name Value Range Interpretation Code Description Data Camille rce(s) Supporting Document(s) SARS coronavirus 2 RNA [facility] This lab was ordered by [facility] and reported by [facility]. ID Date Data Source [id number] 06/21/2020 08:00:00 AM EST [facility] Name Value Range Interpretation Code Description Data Camille rce(s) Supporting Document(s) SARS coronavirus 2 RNA [facility] This lab was ordered by [facility] and reported by [facility]. ID Date Data Source [id number] 06/15/2020 12:00:00 PM EST [facility] Name Value Range Interpretation Code Description Data Camille rce(s) Supporting Document(s) SARS coronavirus 2 RNA [facility] This lab was ordered by [facility] and reported by [facility]. Procedure Social History No Information Vital Signs ID Date Data Source UNK Name Value Range Interpretation Code Description Data Source(s) Diastolic blood pressure 85 mm[Hg] 85 mm[Hg] [facility] ([facility]) Diastolic blood pressure 85 mm[Hg] 85 mm[Hg] [facility] ([facility]) Body height 61.5 [in_i] 61.5 [in_i] [facility] ([facility]) Body mass index (BMI) [Ratio] 27.7 kg/m2 27.7 k g/m2 [facility] ([facility]) Systolic blood pressure 122 mm[Hg] 122 mm[Hg] A [facility] ([facility]) Body weight 2386 [oz_av] 2386 [oz_av] [facility]I ([facility]) Body height 61.5 [in_i] 61.5 [in_i] [facility] ([facility]) Body mass index (BMI) [Ratio] 27.7 kg/m2 27.7 k g/m2 [facility] ([facility]) Systolic blood pressure 122 mm[Hg] 122 mm[Hg] A [facility] ([facility]) Body weight 2386 [oz_av] 2386 [oz_av] [facility] ([facility]) Diastolic blood pressure 85 mm[Hg] 85 mm[Hg] [facility] ([facility]) Body height 61.5 [in_i] 61.5 [in_i] [facility] ([facility]) Body mass index (BMI) [Ratio] 27.7 kg/m2 27.7 k g/m2 [facility] ([facility]) Systolic blood pressure 122 mm[Hg] 122 mm[Hg] [facility] Body weight 2386 [oz_av] 2386 [oz_av] [facility] ([facility]) Diastolic blood pressure 87 mm[Hg] 87 mm[Hg] [facility] ([facility]) Body height 61.5 [in_i] 61.5 [in_i] [facility] ([facility]) Body mass index (BMI) [Ratio] 25.7 kg/m2 25.7 k g/m2 [facility] ([facility]) Systolic blood pressure 122 mm[Hg] 122 mm[Hg] [facility] Body weight 2208 [oz_av] 2208 [oz_av] [facility] ([facility]) Diastolic blood pressure 87 mm[Hg] 87 mm[Hg] [facility] ([facility]) Body height 61.5 [in_i] 61.5 [in_i] [facility]I ([facility]) Body mass index (BMI) [Ratio] 25.7 kg/m2 25.7 k g/m2 [facility] ([facility]) Systolic blood pressure 122 mm[Hg] 122 mm[Hg] [facility] Body weight 2208 [oz_av] 2208 [oz_av] [facility] ([facility]) Diastolic blood pressure 87 mm[Hg] 87 mm[Hg] [facility] ([facility]) Body height 61.5 [in_i] 61.5 [in_i] V[facility]I ([facility]) Body mass index (BMI) [Ratio] 25.7 kg/m2 25.7 k g/m2 [facility] ([facility]) Systolic blood pressure 122 mm[Hg] 122 mm[Hg] [facility] Body weight 2208 [oz_av] 2208 [oz_av] V[facility]I ([facility]) Diastolic blood pressure 87 mm[Hg] 87 mm[Hg] [facility] ([facility]) Body height 61.5 [in_i] 61.5 [in_i] VINI ([facility]) Body mass index (BMI) [Ratio] 25.7 kg/m2 25.7 k g/m2 [facility] ([facility]) Systolic blood pressure 122 mm[Hg] 122 mm[Hg] A [facility] ([facility]) Body weight 2208 [oz_av] 2208 [oz_av] VINI ([facility]) Systolic blood pressure 141 mm[Hg] 141 mm[Hg] M EDENT ([facility]) Diastolic blood pressure 96 mm[Hg] 96 mm[Hg] MED[facility] ([facility]) Oxygen saturation in Arterial blood by Pulse oximetry 95 % 95 % [facility] ([facility]) Heart rate 76 /min 76 /min [facility] ([facility]) Respiratory rate 15 /min 15 /min MED[facility] ( [facility]) Respiratory rate 12 /min 12 /min MEDENT ( [facility], ) Body height 60.5 [in_i] 60.5 [in_i] MEDENT ([facility], ) 5'0.50" Body weight 137.00 [lb_av] 137.00 [lb_av] MEDEN T ([facility], ) Body mass index (BMI) [Ratio] 26.3 kg/m2 26.3 k g/m2 MEDENT ([facility], ) [place] body weight 100 [lb_av] 100 [lb_av] MEDEN T ([facility], ) Patient Treatment Plan of Care Planned Activity Planned Date Details Description Data Source (s) Potassium Chloride 10 MEQ Extended Release Oral Capsule [facility] ([facility]) potassium chloride (bulk) powder 20 MEQ, twice a day at 8AM & 8 PM [facility] ([facility]) Melatonin 3 MG Extended Release Oral Tablet [facility] ([facility]) Divalproex Sodium 125 MG Delayed Release Oral Capsule V[facility]I ([facility]) Depakote 125 Mg take 3 CAPS at bedtime [place] ([facility]) Potassium Chloride 10 MEQ Extended Release Oral Capsule V[facility]I ([facility]) potassium chloride (bulk) powder 20 MEQ, twice a day at 8AM & 8 PM VINI ([facility]) Melatonin 3 MG Extended Release Oral Tablet V[facility]I ([facility]) Divalproex Sodium 125 MG Delayed Release Oral Capsule V[facility]I ([facility]) Depakote 125 Mg take 3 CAPS at bedtime VINI ([facility]) Potassium Chloride 10 MEQ Extended Release Oral Capsule V[facility]I ([facility]) potassium chloride (bulk) powder 20 MEQ, twice a day at 8AM & 8 PM VINI ([facility]) Melatonin 3 MG Extended Release Oral Tablet V[facility]I ([facility]) Divalproex Sodium 125 MG Delayed Release Oral Capsule [facility]I ([facility]) Depakote 125 Mg take 3 CAPS at bedtime V[facility]I ([facility]) Melatonin 3 MG Extended Release Oral Tablet [facility] ([facility])
== END 2021-07-06 15:37 | disposition left against medical advice (07) ==
LOC: M ED 13:24
DX: Z53.21 Procedure and treatment not carried out due to patient leaving prior to being seen by health care provider (principal)

== ENCOUNTER → 2021-07-31 | Outpatient (CLI) | payer MEDICARE, OTHER ==
[~2021-07-31] MED LIST changes: +ALEN70TA82 PO; +LOSA50TA28 PO; -LOSA50TA88 PO
== END ==
LOC: M RAD 10:47
PROVIDERS: ATTEND Nurse Practitioner Family
DX: N93.9 Abnormal uterine and vaginal bleeding, unspecified (principal)

== ENCOUNTER → 2021-08-15 | Outpatient (REF) | payer MEDICARE, OTHER | LOC: M LAB REF 16:17 | PROVIDERS: ATTEND Nurse Practitioner Family | DX: R39.9 Unspecified symptoms and signs involving the genitourinary system (principal) ==

== ENCOUNTER → 2021-10-25 | Outpatient (REF) | payer MEDICARE, OTHER ==
[~2021-10-25] MED LIST changes: -D31000TA2 PO; +VITA100093 PO
== END ==
LOC: M SFHCDERM 17:24
PROVIDERS: ATTEND Dermatology
DX: L82.0 Inflamed seborrheic keratosis (principal)

== ENCOUNTER 2021-12-21 09:28 | Inpatient (IN) | payer MEDICARE, OTHER ==
[~2021-12-21] VITALS: Ht 165.1 cm; Wt 62.1 kg
[2021-12-21] MEDS ORDERED: ACETAMINOPHEN 325 MG TAB PO ONE (10:05)
[2021-12-21 10:21] LABS: BASO % 0.5 % (0.0-1.0); EOS % 0.5 % (0.0-3.0); HEMATOCRIT 41.2 % (36.0-47.0); HEMOGLOBIN 13.2 g/dl (12.0-15.5); LYMPH # 0.6 10^3/uL (1.5-5.0); LYMPH % 26.1 % (24.0-44.0); MEAN CORPUSCULAR HEMOGLOBIN 28.9 pg (27.0-33.0); MEAN CORPUSCULAR VOLUME 90.4 fl (80.0-96.0); MONO # 0.1 10^3/uL (0.0-0.8); MONO % 4.5 % (2.0-8.0); NEUTROPHILS # 1.5 10^3/uL (1.5-8.5); PLATELET COUNT, AUTOMATED 113 10^3/uL (150-450); RED BLOOD COUNT 4.56 10^6/uL (4.00-5.40); WHITE BLOOD COUNT 2.2 10^3/uL (4.0-10.0)
[2021-12-21 10:43] LABS: CK-MB VALUE MASS < 1.0 NG/ML (<3.6); CPK CREATINE PHOSPHOKINASE 31 U/L (26-192); MB/CK RELATIVE INDEX 3.23 (< OR =4)
[2021-12-21 10:45] LABS: ALBUMIN 2.5 GM/DL (3.2-5.2); ALT/SGPT 9 U/L (12-78); BILIRUBIN,DIRECT 0.1 MG/DL (0.0-0.2); BILIRUBIN,TOTAL 0.4 MG/DL (0.2-1.0); BLOOD UREA NITROGEN 21 MG/DL (7-18); CALCIUM LEVEL 9.1 MG/DL (8.8-10.2); CARBON DIOXIDE LEVEL 26 MEQ/L (21-32); CHLORIDE LEVEL 107 MEQ/L (98-107); CREATININE FOR GFR 0.87 MG/DL (0.55-1.30); GLOMERULAR FILTRATION RATE > 60.0 (>32); GLUCOSE, FASTING 93 MG/DL (70-100); POTASSIUM SERUM 3.9 MEQ/L (3.5-5.1); SODIUM LEVEL 141 MEQ/L (136-145); TOTAL PROTEIN 6.7 GM/DL (6.4-8.2)
[2021-12-21] MEDS ORDERED: CARV6.25 PO (12:12)
[2021-12-21] MEDS ORDERED: CALC1TAB30 PO (12:12)
[2021-12-21] MEDS ORDERED: LEVO25TA5 PO (12:12)
[2021-12-21] MEDS ORDERED: DIVA1TAB48 PO ×2 (12:12)
[2021-12-21] MEDS ORDERED: POTA1TAB14 PO (12:12)
[2021-12-21] MEDS ORDERED: HOME MED LIST COMPLETE! XX SCH (12:15)
[2021-12-21] MEDS ORDERED: MAALOX 30 ML SUSP *UDC PO PRN (13:10)
[2021-12-21] MEDS ORDERED: MOM 30ML SUSPENSION UDC PO PRN (13:10)
[2021-12-21] MEDS ORDERED: HEPARIN SOD (PORCINE) 5000UNITS/ML 1ML VIAL/SYRINGE SC SCH (13:10)
[2021-12-21] MEDS: D5W/0.45% SODIUM CHLORIDE 1,000 ML IV SCH (14:45)
[2021-12-21 14:57] LABS: VALPROIC ACID (DEPAKOTE) 105.4 UG/ML (50.0-100.0)
[2021-12-21 16:52] VITALS: BP 189/83
[2021-12-21] MEDS ORDERED: REMDESIVIR 200 MG in NS 250 ML IV ONE (18:00)
[2021-12-21 18:02] LABS: THYROXINE (T4) 9.5 UG/DL (4.5-12.0)
[2021-12-21 20:00] VITALS: BP 148/72; O2SAT 96
[2021-12-21] MEDS ORDERED: SODIUM CHLORIDE 0.9% INJ 10 ML SYR IV ONE (20:00)
[2021-12-21] MEDS: CARVedilol 6.25 MG TAB PO SCH (20:57)
[2021-12-21] MEDS: ENOXAPARIN 40MG/0.4ML SYRINGE (J1650 PER 10MG) SC SCH (20:58)
[2021-12-21 21:00] VITALS: O2SAT 94
[2021-12-21] MEDS ORDERED: DIVALPROEX 500 MG TAB PO SCH (21:00)
[2021-12-21 22:00] VITALS: O2SAT 94
[2021-12-21 23:00] VITALS: O2SAT 95
[2021-12-22] VITALS (19 sets, daily range): BP systolic 130–174; BP diastolic 80–125; O2SAT 91–96
[2021-12-22] MEDS: ACETAMINOPHEN TAB 650MG DOSE (2X325MG) PO PRN ×3 (00:44→20:16)
[2021-12-22] MEDS: LEVOTHYROXINE 25MCG TABLET (0.025MG) PO SCH (06:08)
[2021-12-22 08:08] LABS: BASO % 0.6 % (0.0-1.0); HEMATOCRIT 36.2 % (36.0-47.0); HEMOGLOBIN 12.1 g/dl (12.0-15.5); LYMPH # 0.8 10^3/uL (1.5-5.0); LYMPH % 46.2 % (24.0-44.0); MEAN CORPUSCULAR HEMOGLOBIN 30.1 pg (27.0-33.0); MEAN CORPUSCULAR HGB CONC 33.4 g/dl (32.0-36.5); MONO # 0.2 10^3/uL (0.0-0.8); MONO % 10.4 % (2.0-8.0); NEUTROPHILS % 40.5 % (36.0-66.0); RED BLOOD COUNT 4.02 10^6/uL (4.00-5.40); WHITE BLOOD COUNT 1.7 10^3/uL (4.0-10.0)
[2021-12-22 08:21] LABS: MAGNESIUM LEVEL 1.6 MG/DL (1.8-2.4)
[2021-12-22 08:27] LABS: BLOOD UREA NITROGEN 18 MG/DL (7-18); CALCIUM LEVEL 8.6 MG/DL (8.8-10.2); CARBON DIOXIDE LEVEL 26 MEQ/L (21-32); CHLORIDE LEVEL 104 MEQ/L (98-107); GLOMERULAR FILTRATION RATE > 60.0 (>32); GLUCOSE, FASTING 97 MG/DL (70-100); POTASSIUM SERUM 3.1 MEQ/L (3.5-5.1); SODIUM LEVEL 137 MEQ/L (136-145)
[2021-12-22] MEDS ORDERED: DIVALPROEX 125 MG TAB PO SCH (09:00)
[2021-12-22 09:13] LABS: PLATELET COUNT, AUTOMATED 85 10^3/uL (150-450)
[2021-12-22 09:14] LABS: NEUTROPHILS # 0.7 10^3/uL (1.5-8.5)
[2021-12-22] MEDS: D5W/0.45% SODIUM CHLORIDE 1,000 ML IV SCH (09:31)
[2021-12-22] MEDS ORDERED: POTASSIUM CHLORIDE 10MEQ SR TABLET PO ONE (10:15)
[2021-12-22] MEDS: CARVedilol 6.25 MG TAB PO SCH ×2 (10:45→20:35)
[2021-12-22] MEDS: CALCIUM/VITAMIN D 500 MG TAB PO SCH (10:45)
[2021-12-22] MEDS: MAG SULF 1GM/100ML (MAG RUN) 1 GM in IV 1 EA IV SCH ×2 (10:46→13:34)
[2021-12-22 10:49] LABS: VALPROIC ACID (DEPAKOTE) 66.8 UG/ML (50.0-100.0)
[2021-12-22] MEDS ORDERED: LABETALOL 100MG/20ML VIAL IV ONE (16:05)
[2021-12-22] MEDS: REMDESIVIR 100 MG in NS 250 ML IV SCH (18:38)
[2021-12-22] MEDS: SODIUM CHLORIDE 0.9% INJ 10 ML SYR IV SCH (18:38)
[2021-12-22] MEDS: ENOXAPARIN 40MG/0.4ML SYRINGE (J1650 PER 10MG) SC SCH (20:21)
[2021-12-22] MEDS ORDERED: CARVedilol 12.5 MG TAB PO SCH (21:00)
[2021-12-23] VITALS (15 sets, daily range): BP systolic 130–190; BP diastolic 72–110; O2SAT 93–97
[2021-12-23] MEDS ORDERED: hydrALAZINE 20MG/ML 1ML VIAL (J0360 PER 20MG) IV ONE
[2021-12-23] MEDS: DIVALPROEX SPRINKLE 125 MG CAP PO SCH ×3 (01:42→22:41)
[2021-12-23] MEDS ORDERED: ACETAMINOPHEN *IV* 1,000 MG in IV 1 EA IV ONE (03:00)
[2021-12-23] MEDS: LEVOTHYROXINE 25MCG TABLET (0.025MG) PO SCH (06:00)
[2021-12-23] MEDS: D5W/0.9% SODIUM CHLORIDE 1,000 ML IV SCH (06:37)
[2021-12-23] MEDS ORDERED: ACETAMINOPHEN 325 MG/10.15 ML UDC PO PRN (08:00)
[2021-12-23 08:09] LABS: HEMATOCRIT 42.3 % (36.0-47.0); HEMOGLOBIN 13.9 g/dl (12.0-15.5); MEAN CORPUSCULAR HGB CONC 32.9 g/dl (32.0-36.5); MEAN CORPUSCULAR VOLUME 88.3 fl (80.0-96.0); RED BLOOD COUNT 4.79 10^6/uL (4.00-5.40); WHITE BLOOD COUNT 3.1 10^3/uL (4.0-10.0)
[2021-12-23 08:11] LABS: PLATELET COUNT, AUTOMATED 97 10^3/uL (150-450)
[2021-12-23 08:36] LABS: ALBUMIN 2.2 GM/DL (3.2-5.2); ALT/SGPT 14 U/L (12-78); AMYLASE 22 U/L (25-115); BILIRUBIN,TOTAL 0.4 MG/DL (0.2-1.0); BLOOD UREA NITROGEN 16 MG/DL (7-18); CALCIUM LEVEL 8.7 MG/DL (8.8-10.2); CARBON DIOXIDE LEVEL 24 MEQ/L (21-32); CHLORIDE LEVEL 101 MEQ/L (98-107); CREATININE FOR GFR 0.74 MG/DL (0.55-1.30); GLOMERULAR FILTRATION RATE > 60.0 (>32); GLUCOSE, FASTING 116 MG/DL (70-100); LIPASE 48 U/L (73-393); MAGNESIUM LEVEL 1.8 MG/DL (1.8-2.4); POTASSIUM SERUM 2.8 MEQ/L (3.5-5.1); SODIUM LEVEL 136 MEQ/L (136-145); TOTAL PROTEIN 6.6 GM/DL (6.4-8.2)
[2021-12-23] MEDS: CALCIUM/VITAMIN D 500 MG TAB PO SCH (09:00)
[2021-12-23] MEDS ORDERED: KCL 10MEQ/100ML SWI (KRUN) 10 MEQ in IV 1 EA IV ONE (09:00)
[2021-12-23] MEDS ORDERED: POTASSIUM CHLORIDE 10% LIQ 20 MEQ/15 ML UDC PO ONE ×2 (09:00→12:00)
[2021-12-23 09:16] LABS: LYMPHOCYTES 29 % (16-44); METAMYELOCYTES 2 % (0-0); NEUTROPHILS 39 % (28-66); PLATELET ESTIMATE DECREASED (NORMAL)
[2021-12-23] MEDS ORDERED: ISOVUE-370 76% 100ML VIAL As Ordered ONE (09:52)
[2021-12-23] MEDS: CARVedilol 6.25 MG TAB PO SCH ×2 (11:21→22:47)
[2021-12-23] MEDS ORDERED: POTASSIUM CHLORIDE 10MEQ SR TABLET PO ONE ×2 (12:25→17:00)
[2021-12-23] MEDS: cefTRIAXone SOD 1 GM in D5W MINI-BAG PLUS 50 ML IV SCH (13:50)
[2021-12-23] MEDS: DOXYCYCLINE HYCLATE 100 MG in D5W MINI-BAG PLUS 100 ML IV SCH (15:18)
[2021-12-23 15:46] LABS: CALCIUM LEVEL 8.2 MG/DL (8.8-10.2); CREATININE FOR GFR 0.96 MG/DL (0.55-1.30); GLOMERULAR FILTRATION RATE 59.5 (>32); POTASSIUM SERUM 3.3 MEQ/L (3.5-5.1)
[2021-12-23] MEDS: SODIUM CHLORIDE 0.9% INJ 10 ML SYR IV SCH (18:12)
[2021-12-23] MEDS: REMDESIVIR 100 MG in NS 250 ML IV SCH (18:12)
[2021-12-23] MEDS: ENOXAPARIN 40MG/0.4ML SYRINGE (J1650 PER 10MG) SC SCH (22:41)
[2021-12-24] VITALS (13 sets, daily range): BP systolic 118–152; BP diastolic 62–88; O2SAT 93–98
[2021-12-24] MEDS: DOXYCYCLINE HYCLATE 100 MG in D5W MINI-BAG PLUS 100 ML IV SCH ×2 (01:50→12:11)
[2021-12-24] MEDS: D5W/0.9% SODIUM CHLORIDE 1,000 ML IV SCH (01:58)
[2021-12-24] MEDS: LEVOTHYROXINE 25MCG TABLET (0.025MG) PO SCH (05:11)
[2021-12-24 08:19] LABS: HEMATOCRIT 37.3 % (36.0-47.0); HEMOGLOBIN 12.2 g/dl (12.0-15.5); MEAN CORPUSCULAR HGB CONC 32.7 g/dl (32.0-36.5); MEAN CORPUSCULAR VOLUME 91.9 fl (80.0-96.0); RED BLOOD COUNT 4.06 10^6/uL (4.00-5.40); WHITE BLOOD COUNT 3.5 10^3/uL (4.0-10.0)
[2021-12-24 08:24] LABS: PLATELET COUNT, AUTOMATED 92 10^3/uL (150-450)
[2021-12-24] MEDS: CALCIUM/VITAMIN D 500 MG TAB PO SCH (08:46)
[2021-12-24] MEDS: CARVedilol 6.25 MG TAB PO SCH ×2 (08:46→20:01)
[2021-12-24 08:47] LABS: BLOOD UREA NITROGEN 26 MG/DL (7-18); CARBON DIOXIDE LEVEL 27 MEQ/L (21-32); CHLORIDE LEVEL 108 MEQ/L (98-107); CREATININE FOR GFR 0.93 MG/DL (0.55-1.30); GLOMERULAR FILTRATION RATE > 60.0 (>32); GLUCOSE, FASTING 98 MG/DL (70-100); MAGNESIUM LEVEL 1.9 MG/DL (1.8-2.4); POTASSIUM SERUM 3.9 MEQ/L (3.5-5.1); SODIUM LEVEL 141 MEQ/L (136-145)
[2021-12-24] MEDS: DIVALPROEX SPRINKLE 125 MG CAP PO SCH ×2 (08:47→20:02)
[2021-12-24 09:32] LABS: ATYPICAL LYMPH 7 % (0-5); LYMPHOCYTES 35 % (16-44); MONOCYTES 4 % (0-5); NEUTROPHILS 37 % (28-66)
[2021-12-24 09:33] LABS: PLATELET ESTIMATE MARKED DECREASE (NORMAL)
[2021-12-24 09:34] LABS: CRENATED RBC 1+
[2021-12-24] MEDS: cefTRIAXone SOD 1 GM in D5W MINI-BAG PLUS 50 ML IV SCH (11:00)
[2021-12-24] MEDS: ENOXAPARIN 40MG/0.4ML SYRINGE (J1650 PER 10MG) SC SCH (20:02)
[2021-12-25] MEDS: DOXYCYCLINE HYCLATE 100 MG in D5W MINI-BAG PLUS 100 ML IV SCH (00:18)
[2021-12-25 04:26] VITALS: BP 142/84
[2021-12-25] MEDS: LEVOTHYROXINE 25MCG TABLET (0.025MG) PO SCH (06:21)
[2021-12-25 06:37] LABS: HEMATOCRIT 37.6 % (36.0-47.0); HEMOGLOBIN 12.1 g/dl (12.0-15.5); MEAN CORPUSCULAR HEMOGLOBIN 29.2 pg (27.0-33.0); MEAN CORPUSCULAR HGB CONC 32.2 g/dl (32.0-36.5); MEAN CORPUSCULAR VOLUME 90.8 fl (80.0-96.0); RED BLOOD COUNT 4.14 10^6/uL (4.00-5.40); WHITE BLOOD COUNT 2.5 10^3/uL (4.0-10.0)
[2021-12-25 06:49] LABS: PLATELET COUNT, AUTOMATED 91 10^3/uL (150-450)
[2021-12-25 06:52] LABS: BASO % 0.4 % (0.0-1.0); EOS % 1.2 % (0.0-3.0); LYMPH # 0.9 10^3/uL (1.5-5.0); LYMPH % 37.4 % (24.0-44.0); MONO # 0.1 10^3/uL (0.0-0.8); MONO % 4.9 % (2.0-8.0); NEUTROPHILS # 1.4 10^3/uL (1.5-8.5); NEUTROPHILS % 54.9 % (36.0-66.0)
[2021-12-25 07:04] LABS: CALCIUM LEVEL 9.1 MG/DL (8.8-10.2); CREATININE FOR GFR 0.97 MG/DL (0.55-1.30); GLOMERULAR FILTRATION RATE 58.8 (>32); POTASSIUM SERUM 4.1 MEQ/L (3.5-5.1)
[2021-12-25 09:15] VITALS: BP_SYST 150; BP_DIAS 8; BP_DIAS 80
[2021-12-25] MEDS: CARVedilol 6.25 MG TAB PO SCH ×2 (09:17→20:27)
[2021-12-25] MEDS: DIVALPROEX SPRINKLE 125 MG CAP PO SCH ×2 (09:17→21:01)
[2021-12-25] MEDS: CALCIUM/VITAMIN D 500 MG TAB PO SCH (09:17)
[2021-12-25 10:40] VITALS: O2SAT 97
[2021-12-25] MEDS: DOXYCYCLINE HYCLATE 100MG TABLET PO SCH ×2 (13:02→20:27)
[2021-12-25] MEDS: CEFDINIR 300 MG CAP (OMNICEF) PO SCH ×2 (13:02→20:27)
[2021-12-25 20:00] VITALS: O2SAT 97
[2021-12-25] MEDS: ENOXAPARIN 40MG/0.4ML SYRINGE (J1650 PER 10MG) SC SCH (20:30)
[2021-12-26] VITALS: O2SAT 97
[2021-12-26 04:25] VITALS: BP 156/84
[2021-12-26] MEDS: LEVOTHYROXINE 25MCG TABLET (0.025MG) PO SCH (04:25)
[2021-12-26 08:28] LABS: BLOOD UREA NITROGEN 30 MG/DL (7-18); CARBON DIOXIDE LEVEL 27 MEQ/L (21-32); CHLORIDE LEVEL 106 MEQ/L (98-107); GLOMERULAR FILTRATION RATE > 60.0 (>32); GLUCOSE, FASTING 78 MG/DL (70-100); MAGNESIUM LEVEL 1.6 MG/DL (1.8-2.4); POTASSIUM SERUM 4.2 MEQ/L (3.5-5.1); SODIUM LEVEL 139 MEQ/L (136-145)
[2021-12-26] MEDS: CEFDINIR 300 MG CAP (OMNICEF) PO SCH ×2 (08:51→20:58)
[2021-12-26] MEDS: CALCIUM/VITAMIN D 500 MG TAB PO SCH (08:51)
[2021-12-26] MEDS: DIVALPROEX SPRINKLE 125 MG CAP PO SCH ×3 (08:52→20:58)
[2021-12-26] MEDS: DOXYCYCLINE HYCLATE 100MG TABLET PO SCH ×2 (08:59→20:58)
[2021-12-26] MEDS: CARVedilol 6.25 MG TAB PO SCH ×2 (08:59→21:01)
[2021-12-26 10:07] LABS: HEMOGLOBIN 11.4 g/dl (12.0-15.5); MEAN CORPUSCULAR HEMOGLOBIN 29.8 pg (27.0-33.0); MEAN CORPUSCULAR HGB CONC 32.6 g/dl (32.0-36.5); MEAN CORPUSCULAR VOLUME 91.4 fl (80.0-96.0); RED BLOOD COUNT 3.83 10^6/uL (4.00-5.40); WHITE BLOOD COUNT 2.5 10^3/uL (4.0-10.0)
[2021-12-26 10:08] LABS: PLATELET COUNT, AUTOMATED 99 10^3/uL (150-450)
[2021-12-26 10:16] LABS: ATYPICAL LYMPH 6 % (0-5); LYMPHOCYTES 65 % (16-44); MONOCYTES 2 % (0-5); NEUTROPHILS 26 % (28-66); PLATELET ESTIMATE MARKED DECREASE (NORMAL)
[2021-12-26] MEDS ORDERED: CEFD300CAP PO (19:13)
[2021-12-26] MEDS ORDERED: DOXY100T PO (19:13)
[2021-12-26] MEDS: ENOXAPARIN 40MG/0.4ML SYRINGE (J1650 PER 10MG) SC SCH (20:58)
[2021-12-27 04:00] VITALS: BP 124/69
[2021-12-27] MEDS: LEVOTHYROXINE 25MCG TABLET (0.025MG) PO SCH (05:22)
[2021-12-27 06:24] LABS: HEMATOCRIT 34.9 % (36.0-47.0); HEMOGLOBIN 11.5 g/dl (12.0-15.5); MEAN CORPUSCULAR HEMOGLOBIN 29.6 pg (27.0-33.0); MEAN CORPUSCULAR VOLUME 89.9 fl (80.0-96.0); PLATELET COUNT, AUTOMATED 100 10^3/uL (150-450); RED BLOOD COUNT 3.88 10^6/uL (4.00-5.40); WHITE BLOOD COUNT 2.2 10^3/uL (4.0-10.0)
[2021-12-27 06:58] LABS: BLOOD UREA NITROGEN 25 MG/DL (7-18); CALCIUM LEVEL 8.3 MG/DL (8.8-10.2); CARBON DIOXIDE LEVEL 30 MEQ/L (21-32); CHLORIDE LEVEL 105 MEQ/L (98-107); CREATININE FOR GFR 0.83 MG/DL (0.55-1.30); GLOMERULAR FILTRATION RATE > 60.0 (>32); GLUCOSE, FASTING 79 MG/DL (70-100); MAGNESIUM LEVEL 1.5 MG/DL (1.8-2.4); POTASSIUM SERUM 3.8 MEQ/L (3.5-5.1); SODIUM LEVEL 140 MEQ/L (136-145)
[2021-12-27 07:09] LABS: EOSINOPHILS 5 % (0-3); LYMPHOCYTES 69 % (16-44); MONOCYTES 1 % (0-5); NEUTROPHILS 25 % (28-66)
[2021-12-27 07:10] LABS: PLATELET ESTIMATE DECREASED (NORMAL)
[2021-12-27] MEDS ORDERED: MAGN250T6 PO (08:43)
[2021-12-27] MEDS: MAG SULF 1GM/100ML (MAG RUN) 1 GM in IV 1 EA IV SCH ×2 (09:43→10:10)
[2021-12-27] MEDS: CALCIUM/VITAMIN D 500 MG TAB PO SCH (09:43)
[2021-12-27] MEDS: DOXYCYCLINE HYCLATE 100MG TABLET PO SCH (09:43)
[2021-12-27 09:44] VITALS: BP 131/70
[2021-12-27] MEDS: DIVALPROEX SPRINKLE 125 MG CAP PO SCH (09:44)
[2021-12-27] MEDS: CEFDINIR 300 MG CAP (OMNICEF) PO SCH (09:44)
[2021-12-27] MEDS: CARVedilol 6.25 MG TAB PO SCH (09:44)
== END 2021-12-27 14:02 | disposition home health service (06) | DRG 177 ==
LOC: M ED 09:28 → M 4MAIN 12:14 → ENRESERV 15:31 → M ED 16:54
PROVIDERS: ADMIT Internal Medicine; ATTEND Internal Medicine
PROC: XW033E5 Introduction of Remdesivir Anti-infective into Peripheral Vein, Percutaneous Approach, New Technology Group 5 (ICD-10-PCS; principal; 2021-12-21)
PROC: B246ZZZ Ultrasonography of Right and Left Heart (ICD-10-PCS; 2021-12-24)
DX: U07.1 COVID-19 (principal); J18.9 Pneumonia, unspecified organism; D61.818 Other pancytopenia; D69.6 Thrombocytopenia, unspecified; G40.909 Epilepsy, unspecified, not intractable, without status epilepticus; Z85.3 Personal history of malignant neoplasm of breast; Z90.13 Acquired absence of bilateral breasts and nipples; I10 Essential (primary) hypertension; Z85.828 Personal history of other malignant neoplasm of skin; M81.0 Age-related osteoporosis without current pathological fracture; Z86.718 Personal history of other venous thrombosis and embolism; F03.90 Unspecified dementia, unspecified severity, without behavioral disturbance, psychotic disturbance, mood disturbance, and anxiety; I16.0 Hypertensive urgency; D64.9 Anemia, unspecified; E03.9 Hypothyroidism, unspecified; H35.30 Unspecified macular degeneration; Z90.49 Acquired absence of other specified parts of digestive tract; Z90.79 Acquired absence of other genital organ(s); Z79.899 Other long term (current) drug therapy; Z88.1 Allergy status to other antibiotic agents; Z88.2 Allergy status to sulfonamides; Z88.6 Allergy status to analgesic agent; Z88.8 Allergy status to other drugs, medicaments and biological substances; Z91.040 Latex allergy status; Z91.02 Food additives allergy status; E83.42 Hypomagnesemia; E87.6 Hypokalemia; R13.10 Dysphagia, unspecified